=== PATIENT | female | born 1995 | race Caucasian/White ===

== ENCOUNTER 2017-07-06 22:18 | Emergency (ER) | payer MEDICAID, OTHER ==
[~2017-07-06] VITALS: Ht 154.9 cm; Wt 92.1 kg
[~2017-07-06 22:18] MED LIST: CEPH500C PO; CYCL10TA9 PO; NORE1PAT7 TD; PRD20T PO; TRAM50TA2 PO; TRAZ-28 PO
--- NOTE | 2017-07-06 23:05 | ED General ---
General Chief Complaint: Cough/Cold/Flu Symptoms Stated Complaint: SOB Nursing Triage Note: pt presaents to er with complaint of not being able to breath. states she woke up with difficulty breathing, headache, and nasal congestion. states she has also been coughing. Nursing Sepsis Screen: No Definite Risk Source of Information: Patient Exam Limitations: No Limitations Allergies and Home Medications Allergies Coded Allergies: No Known Drug Allergies (Unverified , 07/06/17) Past Ufaiuho-Ghlhip-Dwrmsl Hx Patient Social History Alcohol Use: Denies Use Recreational Drug Use: No Smoking Status: Current Everyday Smoker Type Used: Cigarettes Recent Foreign Travel: No Contact w/Someone Who Travel: No Recent Infectious Disease Expo: No Recent Hopitalizations: No Surgeries History of Surgeries: Yes Surgeries: Adenoidectomy, Tonsillectomy Respiratory History of Respiratory Disorde: No Cardiovascular History of Cardiac Disorders: No Neurological History of Neurological Disord: No Reproductive System : No Genitourinary History of Genitourinary Disor: Yes Genitourinary Disorders: UTI-Chronic Gastrointestinal History of Gastrointestinal Di: No Musculoskeletal History of Musculoskeletal Dis: No Endocrine History of Endocrine Disorders: No HEENT History of HEENT Disorders: No Cancer History of Cancer: No Psychosocial History of Psychiatric Problem: Yes Behavioral Health Disorders: Depression Integumentary History of Skin or Integumenta: No Blood Transfusions History of Blood Disorders: No Family Medical History Significant Family History: No Pertinent Family Hx Physical Exam Vital Signs Vital Sign - Last 12Hours 07/06/17 22:25 Temp 100.2 Pulse 119 Resp 20 B/P (MAP) 121/73 (89) Pulse Ox 96 O2 Delivery Room Air Capillary Refill : Less Than 3 Seconds Progress/Results/Core Measures Suspected Sepsis Recent Fever Within 48 Hours: No Infection Criteria Present: None New/Unexplained Altered Menta: No Sepsis Screen: No Definite Risk Sepsis Diagnosis: SIRS Temperature:100.2 Pulse: 119 Respiratory Rate: 20 Blood Pressure 121 /73 Mean: 89 Results/Orders Micro Results Microbiology 07/06/17 Influenza Types A,B Antigen ([facility]) - Final, Complete My Orders Orders - JUAN LUIS MENDOSA MD Chest Pa/Lat (2 View) (07/06/17 23:12) Rx-Oseltamivir Caps (Rx-Tamiflu Caps) (07/06/17 23:40) Vital Signs/I&O Vital Sign - Last 12Hours 1/11/18 22:25 Temp 100.2 Pulse 119 Resp 20 B/P (MAP) 121/73 (89) Pulse Ox 96 O2 Delivery Room Air Capillary Refill : Less Than 3 Seconds Blood Pressure Mean: 89 Departure Impression Impression: Primary Impression: Flu-like symptoms Disposition: HOME, SELF-CARE Condition: Stable Departure-Patient Inst. Decision time for Depature: 23:30 Referrals: [facility] (PCP/Family) Primary Care Physician Patient Instructions: Flu, Adult (DC) Add. Discharge Instructions: Complete Tamiflu as prescribed. You may take ibuprofen and/or Tylenol for pain and fever. Drink plenty of clear liquids. Return to care if symptoms worsen. All discharge instructions reviewed with patient and/or family. Voiced understanding. JUAN LUIS MENDOSA MD Jul 06, 2017 23:05
--- OUTSIDE RECORDS SUMMARY | 2017-07-06 23:21 | XMS REPORT ---
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 Active 65636642 Problem Anxiety F41.9 Active 64311952 Problem Dysuria R30.0 Active 89607205 Problem Screen for STD (sexually transmitted disease) Z11.3 Active 729998257 Problem Other chest pain R07.89 Active 74826363 Problem Encounter for initial prescription of other contraceptives Z30.018 Active 777194834 Problem control counseling Z30.9 Active 12606212 Problem History of unprotected sex Z72.51 Active 3784583 Problem Routine health maintenance Z00.00 Active 327843786 Problem Irregular menstruation, unspecified N92.6 Active 80390471 Problem Moderate episode of recurrent major depressive disorder F33.1 Active 626588711 Problem Encounter for gynecological examination Z01.419 Active 736680511 Problem Obesity (BMI 30-39.9) E66.9 Active 127409789 ALLERGIES No Information SOCIAL HISTORY Never Assessed PLAN OF CARE VITAL SIGNS MEDICATIONS Unknown Medications RESULTS Name Result Date Reference Range TEST, URINE (IN HOUSE) 2016-09-18 RESULTS negative Lot # [id number] Control + Exp date 2017-12-23 PROCEDURES Procedure Date Ordered Result Body Site URINE TEST September 18, 2016 DEPO PROVERA (150 MG/ML) September 18, 2016 THER/PROPH/DIAG INJ, SC/IM September 18, 2016 IMMUNIZATIONS Vaccine Route Administration Date Status DEPO PROVERA (150 MG/ML) IM Intramuscular September 18, 2016 Administered MEDICAL (GENERAL) HISTORY Type Description Date Medical History Irregular menstrual cycle Medical History Depressive disorder, not elsewhere classified Medical History Obesity, unspecified Medical History Frequent UTIs Surgical History tonsillectomy and adenoidectomy 2001 Hospitalization History Surgery(s) only [address] [facility] 2013
--- OUTSIDE RECORDS SUMMARY | 2017-07-06 23:21 | XMS REPORT ---
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 Active 11061386 Problem Screen for STD (sexually transmitted disease) Z11.3 Active 485105491 Problem Dysuria R30.0 Active 42105564 Problem Restless legs G25.81 Active 87742802 Problem Other chest pain R07.89 Active 95034046 Problem Anxiety F41.9 Active 37962184 Problem Encounter for initial prescription of other contraceptives Z30.018 Active 840391160 Problem Irregular menstruation, unspecified N92.6 Active 75193070 Problem Encounter for gynecological examination Z01.419 Active 844718288 Problem control counseling Z30.9 Active 84082243 Problem Obesity (BMI 30-39.9) E66.9 Active 577631767 Problem History of unprotected sex Z72.51 Active 0932601 Problem Routine health maintenance Z00.00 Active 295467240 ALLERGIES No Known Allergies SOCIAL HISTORY No smoking Hx information available PLAN OF CARE VITAL SIGNS MEDICATIONS No Known Medications RESULTS Name Result Date Reference Range TEST, URINE (IN HOUSE) 2016-06-28 RESULTS NEGATIVE Lot # [id number] Control + Exp date 2017-11-23 PROCEDURES Procedure Date Ordered Related Diagnosis Body Site URINE TEST Jun 28, 2016 DEPO PROVERA (150 MG/ML) Jun 28, 2016 THER/PROPH/DIAG INJ, SC/IM Jun 28, 2016 IMMUNIZATIONS Vaccine Route Administration Date Status DEPO PROVERA (150 MG/ML) IM Intramuscular Jun 28, 2016 Administered
--- OUTSIDE RECORDS SUMMARY | 2017-07-06 23:21 | XMS REPORT ---
Author Author RAGHU ALONSO [facility] eClinicalWorks Address Unknown Phone Unavailable Care Team Providers Care Adhesion Tester Name Role Phone RAGHU ALONSO CP Unavailable Allergies, Adverse Reactions, Alerts Substance Reaction Event Type N.K.D.A. Info Not Available Non Drug Allergy Problems Problem Type Condition Code Onset Dates Condition Status Problem control counseling Z30.9 Active Problem Irregular menstruation, unspecified N92.6 Active Problem Encounter for gynecological examination Z01.419 Active Problem Dysuria R30.0 Active Problem Restless legs G25.81 Active Problem High-risk sexual behavior Z72.51 Active Problem Obesity (BMI 30-39.9) E66.9 Active Problem Moderate episode of recurrent major depressive disorder F33.1 Active Problem Major depressive disorder, recurrent episode, moderate F33.1 Active Problem Routine health maintenance Z00.00 Active Assessment Restless legs G25.81 Active Assessment Obesity (BMI 30-39.9) E66.9 Active Assessment Moderate episode of recurrent major depressive disorder F33.1 Active Assessment Dysuria R30.0 Active Problem History of unprotected sex Z72.51 Active Assessment High-risk sexual behavior Z72.51 Active Problem Encounter for initial prescription of other contraceptives Z30.018 Active Medications Medication Code System Code Instructions Start Date End Date Status Dosage Ciprofloxacin HCl [facility] [address]-96 500 MG Orally Twice a day Feb 05, 2016 Feb 10, 2016 1 tablet Trazodone HCl [facility] [address]-27 50 mg Orally Once a day November 20, 2015 1 tablet at bedtime as needed Xulane [facility] [address]-00 150-35 mcg/24 hr Transdermal once weekly August apply 1 patch by transdermal route once weekly Gabapentin [facility] [address]-22 100 MG Orally Once a day at bedtime Feb 04, 2016 1 capsule Procedures Procedure Coding System Code Date URINE TEST CPT-4 04336 Feb 04, 2016 URINE CULTURE/COLONY COUNT CPT-4 99844 Feb 04, 2016 URINALYSIS, AUTO, W/O SCOPE CPT-4 63191 Feb 04, 2016 Office Visit, Est Pt., Level 3 CPT-4 28856 Feb 04, 2016 Vital Signs Date/Time: Feb 04, 2016 Cardiac Monitoring Heart Rate 78 bpm Weight 198.0 lbs Height 61 in Wt Percentile 97.26 % BMI 37.41 Index Blood Pressure Diastolic 76 mmHg Blood Pressure Systolic 116 mmHg BMIPercentile 98.04 % Results No Known Results Summary Purpose eClinicalWorks Submission
--- OUTSIDE RECORDS SUMMARY | 2017-07-06 23:21 | XMS REPORT ---
Author Author ALONSORAGHU Le Organization [facility] Address [address] [place] [address] Care Team Providers Care Quarry Supervisor Dimension Stone Name Role Phone ALONSORAGHU Le Unavailable PROBLEMS Type Condition ICD9-CM Code [id number] Code Onset Dates Condition Status SNOMED Code Problem Obesity (BMI 30-39.9) E66.9 Active 698298025 Problem Major depressive disorder, recurrent episode, moderate F33.1 Active 097671689 Problem Routine health maintenance Z00.00 Active 378265847 Problem Other chest pain R07.89 Active 81457954 Problem Anxiety F41.9 Active 27886140 Problem Dysuria R30.0 Active 63309751 Problem Restless legs G25.81 Active 11753359 Problem Screen for STD (sexually transmitted disease) Z11.3 Active 902591746 Problem High-risk sexual behavior Z72.51 Active 643978609 Assessment control counseling Z30.9 Feb, Active 278626874 Problem control counseling Z30.9 Active 41509760 Problem Encounter for gynecological examination Z01.419 Active 047221216 Problem History of unprotected sex Z72.51 Active 4868323 Problem Irregular menstruation, unspecified N92.6 Active 78968638 Problem Encounter for initial prescription of other contraceptives Z30.018 Active 636976377 Problem Moderate episode of recurrent major depressive disorder F33.1 Active 744245465 ALLERGIES Substance Reaction Event Type Date Status N.K.D.A. Unknown Non Drug Allergy Feb, Unknown SOCIAL HISTORY No smoking Hx information available PLAN OF CARE VITAL SIGNS Height 61 in 2016-03-01 Weight 192.3 lbs 2016-03-01 Heart Rate 74 bpm 2016-03-01 Respiratory Rate 18 2016-03-01 BMI 36.33 kg/m2 2016-03-01 Blood pressure systolic 131 mmHg 2016-03-01 Blood pressure diastolic 83 mmHg 2016-03-01 MEDICATIONS Medication Instructions Dosage Frequency Start Date End Date Duration Status BusPIRone HCl 10 mg Orally Twice a day 1 tablet 12h 06 Feb, 2016 Active Trazodone HCl 50 mg Orally Once a day 1 tablet at bedtime as needed 24h October, Active Xulane 150-35 mcg/24 hr Transdermal once weekly apply 1 patch by transdermal route once weekly Aug, Active Gabapentin 100 MG Orally Once a day at bedtime 1 capsule Jan, Active RESULTS Name Result Date Reference Range HSV 1/2 ANTIBODY IgG 2016-03-01 HSV 1 IgG, Type Spec 32.60 0.00-0.90 HSV 2 IgG, Type Spec <0.91 0.00-0.90 SYPHILIS (STATE) 2016-03-01 HIV (STATE) 2016-03-01 PROCEDURES Procedure Date Ordered Related Diagnosis Body Site EKG, TRACING (IN-HOUSE) 2016-03-01 N/A ELECTROCARDIOGRAM, TRACING Mar 01, 2016 VENIPUNCT, ROUTINE* Mar 01, 2016 No Charge Mar 01, 2016 Office Visit, Est Pt., Level 3 Mar 01, 2016 HERPES SIMPLEX TEST Mar 01, 2016 HERPES SIMPLEX TYPE 2 Mar 01, 2016 IMMUNIZATIONS No Known Immunizations
--- OUTSIDE RECORDS SUMMARY | 2017-07-06 23:21 | XMS REPORT ---
Author Author RAGHU ALONSO [facility] eClinicalWorks Address Unknown Phone Unavailable Care Team Providers Care Cable Mechanic Name Role Phone RAGHU ALONSO CP Unavailable Allergies, Adverse Reactions, Alerts Substance Reaction Event Type N.K.D.A. Info Not Available Non Drug Allergy Problems Problem Type Condition Code Onset Dates Condition Status Problem Moderate episode of recurrent major depressive disorder F33.1 Active Problem Routine health maintenance Z00.00 Active Problem Obesity (BMI 30-39.9) E66.9 Active Problem Anxiety F41.9 Active Problem Screen for STD (sexually transmitted disease) Z11.3 Active Problem Other chest pain R07.89 Active Problem Restless legs G25.81 Active Problem Major depressive disorder, recurrent episode, moderate F33.1 Active Problem High-risk sexual behavior Z72.51 Active Problem Dysuria R30.0 Active Assessment Major depressive disorder, recurrent episode, moderate F33.1 Active Assessment Encounter for Depo-Provera contraception Z30.42 Active Assessment control counseling Z30.9 Active Problem Encounter for initial prescription of other contraceptives Z30.018 Active Problem control counseling Z30.9 Active Assessment Anxiety F41.9 Active Problem Encounter for gynecological examination Z01.419 Active Problem History of unprotected sex Z72.51 Active Problem Irregular menstruation, unspecified N92.6 Active Medications Medication Code System Code Instructions Start Date End Date Status Dosage Gabapentin [facility] 02674667989 100 MG Orally Once a day at bedtime 1 capsule Xulane [facility] [address]-57 150-35 mcg/24 hr Transdermal once weekly August apply 1 patch by transdermal route once weekly Trazodone HCl [facility] [address]-75 50 mg Orally Once a day November 20, 2015 1 tablet at bedtime as needed BusPIRone HCl [facility] [address]-37 10 mg Orally Three times a day PRN Feb 1 tablet Procedures Procedure Coding System Code Date URINE TEST CPT-4 05113 Apr 05, 2016 DEPO PROVERA (150 MG/ML) CPT-4 J1050 Apr 05, 2016 Office Visit, Est Pt., Level 3 CPT-4 23977 Apr 05, 2016 THER/PROPH/DIAG INJ, SC/IM CPT-4 83469 Apr 05, 2016 Vital Signs Date/Time: Apr 05, 2016 Cardiac Monitoring Heart Rate 90 bpm Weight 190 lbs Height 61 in Wt Percentile 96.33 % BMI 35.90 Index Blood Pressure Diastolic 60 mmHg Blood Pressure Systolic 104 mmHg BMIPercentile 97.56 % Results No Known Results Summary Purpose eClinicalWorks Submission
--- OUTSIDE RECORDS SUMMARY | 2017-07-06 23:22 | XMS REPORT ---
Author Author RAGHU ALONSO Organization [employer] Address Unknown Phone Unavailable Care Team Providers Care Open Hearth Furnace Operator Name Role Phone RAGHU ALONSO CP Unavailable Allergies No Known Allergies Problems Problem Type Condition Code Onset Dates Condition Status Problem control counseling Z30.9 Active Problem Irregular menstruation, unspecified N92.6 Active Problem Encounter for gynecological examination Z01.419 Active Problem History of unprotected sex Z72.51 Active Problem Encounter for initial prescription of other contraceptives Z30.018 Active Problem Dysuria R30.0 Active Problem Restless legs G25.81 Active Problem High-risk sexual behavior Z72.51 Active Problem Obesity (BMI 30-39.9) E66.9 Active Problem Moderate episode of recurrent major depressive disorder F33.1 Active Problem Major depressive disorder, recurrent episode, moderate F33.1 Active Problem Routine health maintenance Z00.00 Active Medications No Known Medications Results No Known Results Summary Purpose eClinicalWorks Submission
--- OUTSIDE RECORDS SUMMARY | 2017-07-06 23:22 | XMS REPORT ---
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 Active 10485652 Problem Anxiety F41.9 Active 42273322 Problem Dysuria R30.0 Active 97287407 Problem Screen for STD (sexually transmitted disease) Z11.3 Active 294948597 Problem Other chest pain R07.89 Active 37327418 Problem Encounter for initial prescription of other contraceptives Z30.018 Active 401798532 Problem control counseling Z30.9 Active 63429489 Problem History of unprotected sex Z72.51 Active 4238931 Problem Routine health maintenance Z00.00 Active 153129149 Problem Irregular menstruation, unspecified N92.6 Active 53308206 Problem Moderate episode of recurrent major depressive disorder F33.1 Active 466307636 Problem Encounter for gynecological examination Z01.419 Active 349283626 Problem Obesity (BMI 30-39.9) E66.9 Active 968032809 ALLERGIES No Known Allergies SOCIAL HISTORY Never Assessed PLAN OF CARE Activity Details Future/Pending Procedure NAIL REMOVAL PERMANENT (PARTIAL OR COMPLETE) VITAL SIGNS Height 61 in 2016-11-15 Weight 204.9 lbs 2016-11-15 Temperature 98.2 degrees Fahrenheit 2016-11-15 Heart Rate 80 bpm 2016-11-15 Respiratory Rate 18 2016-11-15 BMI 38.71 kg/m2 2016-11-15 Blood pressure systolic 120 mmHg 2016-11-15 Blood pressure diastolic 80 mmHg 2016-11-15 MEDICATIONS Medication Instructions Dosage Frequency Start Date End Date Duration Status Depo-Provera 150 MG/ML 1 ml Active [place] 5-325 MG Orally every 6 hrs 1 tablet as needed 6h October, Active RESULTS No Results PROCEDURES Procedure Date Ordered Result Body Site REMOVAL OF NAIL BED November 15, 2016 IMMUNIZATIONS No Known Immunizations MEDICAL (GENERAL) HISTORY Type Description Date Medical History Irregular menstrual cycle Medical History Depressive disorder, not elsewhere classified Medical History Obesity, unspecified Medical History Frequent UTIs Surgical History tonsillectomy and adenoidectomy 2001 Hospitalization History Surgery(s) only 2001 Hospitalization History [facility] 2012
--- OUTSIDE RECORDS SUMMARY | 2017-07-06 23:22 | XMS REPORT ---
Author KATERYNA Jimenez eClinicalWorks Address Unknown Phone Unavailable Care Team Providers Care Director Religious Education Name Role Phone KATERYNA HOLLIS CP Unavailable Allergies No Known Allergies Problems Problem Type Condition Code Onset Dates Condition Status Problem Dietary surveillance and counseling V65.3 Active Problem Exercise counseling V65.41 Active Problem Counseling on other sexually transmitted diseases V65.45 Active Assessment Encounter for test Z32.00 Active Problem Obesity, unspecified 278.00 Active Problem Depressive disorder, not elsewhere classified 311 Active Problem Dysthymic disorder 300.4 Active Problem Major depressive disorder, recurrent episode, moderate 296.32 Active Problem Irregular menstrual cycle 626.4 Active Problem Other acne 706.1 Active Problem Unspecified episodic mood disorder 296.90 Active Problem Other general counseling and advice for contraceptive management V25.09 Active Medications No Known Medications Procedures Procedure Coding System Code Date VENIPUNCT, ROUTINE* CPT-4 89458 Jul 27, 2015 CHORIONIC GONADOTROPIN ASSAY CPT-4 84158 Jul 27, 2015 Results Name Result Date Reference Range Unit Abnormality Flag ROUTINE VENIPUNCTURE Summary Purpose eClinicalWorks Submission
--- OUTSIDE RECORDS SUMMARY | 2017-07-06 23:22 | XMS REPORT ---
Author Author RAGHU ALONSO Organization [employer] Address Unknown Phone Unavailable Care Team Providers Care Piledriver Carpenter Name Role Phone RAGHU ALONSO CP Unavailable [...]
--- OUTSIDE RECORDS SUMMARY | 2017-07-06 23:22 | XMS REPORT | Continuity of Care Document ---
Author Author [facility] Address Unknown Phone Unavailable Allergies Active Description Code Type Severity Reaction Onset Reported/Identified Relationship to Patient Clinical Status Yes No Known Drug Allergies [id number] Drug Allergy Unknown N/A 03/25/2014 Medications There is no data. 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 L V20.2 WELL CHILD 05/27/2011 078.12 PLANTAR WART 05/27/2011 477.9 ALLERGIC RHINITIS CAUSE UNSPECIFIED 05/27/2011 599.0 URINARY TRACT INFECTION 05/27/2011 V20.2 WELL CHILD 05/27/2011 078.12 PLANTAR WART 05/27/2011 477.9 ALLERGIC RHINITIS CAUSE UNSPECIFIED 05/27/2011 599.0 URINARY TRACT INFECTION 05/27/2011 V20.2 WELL CHILD 05/27/2011 078.12 PLANTAR WART 05/27/2011 477.9 ALLERGIC RHINITIS CAUSE UNSPECIFIED 05/27/2011 599.0 URINARY TRACT INFECTION 05/27/2011 V20.2 WELL CHILD 05/27/2011 078.12 PLANTAR WART 05/27/2011 477.9 ALLERGIC RHINITIS CAUSE UNSPECIFIED 05/27/2011 599.0 URINARY TRACT INFECTION 05/27/2011 V20.2 WELL CHILD 05/27/2011 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, 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 078.12 PLANTAR WART 05/27/2011 PATTI OCHOA APRN 477.9 ALLERGIC RHINITIS CAUSE UNSPECIFIED 05/27/2011 PATTI OCHOA APRN 599.0 URINARY TRACT INFECTION 05/27/2011 PATTI OCHOA APRN V20.2 WELL CHILD 09/20/2011 626.4 IRREGULAR MENSTRUAL CYCLE 09/20/2011 706.1 ACNE 09/20/2011 788.1 DYSURIA 09/20/2011 V25.09 CONTRACEPTIVE COUNSELING - GENERAL 09/20/2011 PATTI OCHOA APRN 626.4 irregular length of menstrual periods 09/20/2011 PATTI OCHOA APRN 706.1 ACNE 09/20/2011 PATTI OCHOA APRN 788.1 DYSURIA 09/20/2011 PATTI OCHOA APRN V25.09 CONTRACEPTIVE COUNSELING - GENERAL 09/20/2011 626.4 irregular length of menstrual periods 09/20/2011 706.1 ACNE 09/20/2011 788.1 DYSURIA 09/20/2011 V25.09 CONTRACEPTIVE COUNSELING - GENERAL 09/20/2011 626.4 irregular length of menstrual periods 09/20/2011 706.1 ACNE 09/20/2011 788.1 DYSURIA 09/20/2011 V25.09 CONTRACEPTIVE COUNSELING - GENERAL 09/20/2011 626.4 irregular length of menstrual periods 09/20/2011 706.1 ACNE 09/20/2011 788.1 DYSURIA 09/20/2011 V25.09 CONTRACEPTIVE COUNSELING - GENERAL 09/20/2011 626.4 irregular length of menstrual periods 09/20/2011 706.1 ACNE 09/20/2011 788.1 DYSURIA 09/20/2011 V25.09 CONTRACEPTIVE COUNSELING - GENERAL 09/20/2011 PATTI OCHOA APRN 626.4 irregular length of menstrual periods 09/20/2011 PATTI OCHOA APRN 706.1 ACNE 09/20/2011 PATTI OCHOA APRN 788.1 DYSURIA 09/20/2011 PATTI OCHOA APRN V25.09 CONTRACEPTIVE COUNSELING - GENERAL 09/27/2011 296.32 MO DEPRESSIVE RECURRENT MODERATE 09/27/2011 PATTI OCHOA APRN 296.32 MO DEPRESSIVE RECURRENT MODERATE 09/27/2011 296.32 MO DEPRESSIVE RECURRENT MODERATE 09/27/2011 296.32 MO DEPRESSIVE RECURRENT MODERATE 09/27/2011 296.32 MO DEPRESSIVE RECURRENT MODERATE 09/27/2011 296.32 MO DEPRESSIVE RECURRENT MODERATE 09/27/2011 PATTI OCHOA APRN 296.32 MO DEPRESSIVE RECURRENT MODERATE 11/02/2011 300.4 MO DYSTHYMIC DISORDER 11/02/2011 PATTI OCHOA APRN 300.4 MO DYSTHYMIC DISORDER 11/02/2011 300.4 MO DYSTHYMIC DISORDER 11/02/2011 300.4 MO DYSTHYMIC DISORDER 11/02/2011 300.4 MO DYSTHYMIC DISORDER 11/02/2011 300.4 MO DYSTHYMIC DISORDER 11/02/2011 PATTI OCHOA APRN 300.4 MO DYSTHYMIC DISORDER 12/16/2011 296.90 MOOD DISORDER NOS 12/16/2011 PATTI OCHOA APRN 296.90 MOOD DISORDER NOS 12/16/2011 296.90 MOOD DISORDER NOS 12/16/2011 296.90 MOOD DISORDER NOS 12/16/2011 296.90 MOOD DISORDER NOS 12/16/2011 296.90 MOOD DISORDER NOS 12/16/2011 PATTI OCHOA APRN 296.90 MOOD DISORDER NOS 08/03/2012 311 DEPRESSIVE DISORDER NOS 08/03/2012 PATTI OCHOA APRN 311 DEPRESSIVE DISORDER NOS 08/03/2012 311 DEPRESSIVE DISORDER NOS 08/03/2012 311 DEPRESSIVE DISORDER NOS 08/03/2012 311 DEPRESSIVE DISORDER NOS 08/03/2012 311 DEPRESSIVE DISORDER NOS 08/03/2012 PATTI OCHOA APRN 311 DEPRESSIVE DISORDER NOS 09/19/2012 PATTI OCHOA APRN 278.00 OBESITY 09/19/2012 PATTI OCHOA APRN V65.3 DIETARY SURVEILLANCE AND COUNSELING 09/19/2012 PATTI OCHOA APRN V65.41 EXERCISE COUNSELING 09/19/2012 PATTI OCHOA APRN V65.45 Anticipatory Guidance: Unsafe Sexual Practices 09/19/2012 278.00 OBESITY 09/19/2012 V65.3 DIETARY SURVEILLANCE AND COUNSELING 09/19/2012 V65.41 EXERCISE COUNSELING 09/19/2012 V65.45 Anticipatory Guidance: Unsafe Sexual Practices 09/19/2012 278.00 OBESITY 09/19/2012 V65.3 DIETARY SURVEILLANCE AND COUNSELING 09/19/2012 V65.41 EXERCISE COUNSELING 09/19/2012 V65.45 Anticipatory Guidance: Unsafe Sexual Practices 09/19/2012 278.00 OBESITY 09/19/2012 V65.3 DIETARY SURVEILLANCE AND COUNSELING 09/19/2012 V65.41 EXERCISE COUNSELING 09/19/2012 V65.45 Anticipatory Guidance: Unsafe Sexual Practices 09/19/2012 278.00 OBESITY 09/19/2012 V65.3 DIETARY SURVEILLANCE AND COUNSELING 09/19/2012 V65.41 EXERCISE COUNSELING 09/19/2012 V65.45 Anticipatory Guidance: Unsafe Sexual Practices 09/19/2012 PATTI OCHOA APRN 278.00 OBESITY 09/19/2012 PATTI OCHOA APRN V65.3 DIETARY SURVEILLANCE AND COUNSELING 09/19/2012 PATTI OCHOA APRN V65.41 EXERCISE COUNSELING 09/19/2012 PATTI OCHOA APRN V65.45 Anticipatory Guidance: Unsafe Sexual Practices 03/25/2014 NAVYA MEZA, JUAN LUIS Hoskins Ot 599.0 URIN TRACT INFECTION NOS 03/25/2014 NAVYA MEZA, JUAN LUIS T Ot 788.1 DYSURIA 08/25/2015 NALINI MEZA, KIMBERLY Winn Ot M54.16 RADICULOPATHY, LUMBAR REGION 12/21/2015 JAVI SOMMERS Ot S76.312A STRAIN OF MSL/FASC/TND POST GRP AT [facility] 12/21/2015 JAVI SOMMERS Ot X58.XXXA EXPOSURE TO OTHER SPECIFIED FACTORS, INI 12/21/2015 JAVI SOMMERS Ot Y99.8 OTHER EXTERNAL CAUSE STATUS 12/22/2015 JAVI SOMMERS Ot S76.312A STRAIN OF MSL/FASC/TND POST GRP AT [facility] 12/22/2015 JAVI SOMMERS Ot X58.XXXA EXPOSURE TO OTHER SPECIFIED FACTORS, INI 12/22/2015 JAVI SOMMERS Ot Y99.8 OTHER EXTERNAL CAUSE STATUS Procedures Code [place] [address] PSYTX PT&/FAMILY 30 MINUTES 08/13/2012 21284 ROUTINE VENIPUNCTURE 09/19/2012 33311 URINE TEST (IN- HOUSE) 09/19/2012 75125 CBC 09/19/2012 29040 LIPID PANEL 09/19/2012 11100 CMP 09/19/2012 69033 A1C (RML) 09/19/2012 65471 T4 FREE 09/19/2012 13684 TSH 09/19/2012 14725 INSULIN LEVEL 09/19/2012 26337 PSYCH DIAGNOSTIC EVALUATION 09/21/2012 38572 PSYTX PT&/FAMILY 30 MINUTES 10/25/2012 88108 PSYTX PT&/FAMILY 45 MINUTES 11/07/2012 02744 PSYTX PT&/FAMILY 45 MINUTES 11/14/2012 02275 UA LONG DIP 11/21/2012 00018 PSYTX PT&/FAMILY 45 MINUTES 11/21/2012 84293 CULTURE URINE 11/21/2012 Results There is no data. Encounters ACCT No. Visit Date/Time Discharge Status Pt. Type Provider Facility Loc./Unit Complaint [id number] 11/21/2012 13:33:00 11/21/2012 23:59:59 CLS Outpatient PATTI OCHOA APRN [id number] 09/19/2012 09:28:00 09/19/2012 23:59:59 CLS Outpatient PATTI OCHOA APRN [id number] 08/03/2012 10:03:00 08/03/2012 23:59:59 CLS Outpatient [id number] 11/21/2012 13:33:00 Document Registration [id number] 11/14/2012 14:59:00 Document Registration [id number] 10/24/2012 15:55:00 Document Registration [id number] 10/10/2012 15:59:00 Document Registration [id number] 12/21/2015 15:40:00 12/21/2015 18:28:00 DIS Emergency JAVI SOMMERS [facility] ER L LEG PAIN [id number] 08/25/2015 12:54:00 08/25/2015 14:36:00 DIS Emergency KIMBERLY GAYLE MD [facility] ER BACK PAIN [id number] 03/25/2014 04:48:00 03/25/2014 06:02:00 DIS Emergency NAVYA MEZA, JUAN LUIS Hoskins [facility] ER
[2017-07-06] MEDS ORDERED: RX-OSELTAMIVIR 75 MG (TAMIFLU) BOX OF 10 PO STA (23:40)
[2017-07-06 23:48] VITALS: BP 120/67
--- NOTE | 2017-07-07 07:28 | Diagnostic Imaging Report ---
INDICATION: Shortness of breath and cough. PA and lateral views were obtained. FINDINGS: The heart size, mediastinal configuration, and pulmonary vascularity are within normal limits. There is no pleural effusion, pneumothorax, or pneumonia. The osseous structures are unremarkable. IMPRESSION: No acute cardiopulmonary abnormality. Dictated by: Dictated on workstation # [id number]
== END 2017-07-06 23:48 | disposition home or self-care (01) ==
LOC: EDUNIT# 22:18 → ER 22:19
DX: J11.1 Influenza due to unidentified influenza virus with other respiratory manifestations (principal); F32.9 Major depressive disorder, single episode, unspecified; F17.210 Nicotine dependence, cigarettes, uncomplicated; Z90.89 Acquired absence of other organs; Z87.440 Personal history of urinary (tract) infections
CPT/HCPCS: 71046; 87804; 99283

== ENCOUNTER 2018-04-09 17:39 | Emergency (ER) | payer SELFPAY ==
[~2018-04-09] VITALS: Ht 154.9 cm; Wt 90.7 kg
[~2018-04-09 17:39] MED LIST changes: +TRAZ-189 PO; -TRAZ-28 PO
--- OUTSIDE RECORDS SUMMARY | 2018-04-09 17:45 | XMS REPORT ---
Author Author Nicola NIYAH [facility] WALK IN [facility] Address [address] [place] [address] Care Team Providers Care Supervisor Advertising Dispatch Clerks Name Role Phone jenelleCORNELIALETY NIYAH Unavailable PROBLEMS Type Condition ICD9-CM Code GYQ33-XT Code Onset Dates Condition Status SNOMED Code Problem Major depressive disorder, recurrent episode, moderate F33.1 Active 156163022 Problem High-risk sexual behavior Z72.51 Active 882954304 Problem Restless legs G25.81 Active 11407698 Problem Abnormal uterine bleeding (AUB) N93.9 Active 12048525316178 Problem 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 Active 95864802 Problem Anxiety F41.9 Active 97725737 Problem Dysuria R30.0 Active 51337692 Problem Screen for STD (sexually transmitted disease) Z11.3 Active 671120562 Problem Other chest pain R07.89 Active 66903594 Problem Encounter for initial prescription of other contraceptives Z30.018 Active 941147114 Problem control counseling Z30.9 Active 87002132 Problem History of unprotected sex Z72.51 Active 2807989 Problem Routine health maintenance Z00.00 Active 093330788 Problem Irregular menstruation, unspecified N92.6 Active 68720617 Problem Moderate episode of recurrent major depressive disorder F33.1 Active 810392152 Problem Encounter for gynecological examination Z01.419 Active 295624566 Problem Obesity (BMI 30-39.9) E66.9 Active 505713132 ALLERGIES No Information ENCOUNTERS Encounter Location Date Diagnosis [facility] [address] [id number], [place] [address] 17 Mar, 2017 control counseling Z30.9 ; Encounter for initial prescription of transdermal patch hormonal contraceptive device Z30.016 and Routine screening for STI (sexually transmitted infection) Z11.3 [facility] [address] [id number], [place] [address] 16 Feb, 2017 [facility] [place] [id number] [place] [address] 12 Feb, 2017 Abnormal uterine bleeding (AUB) N93.9 and Candidiasis of female genitalia B37.3 [place] [id number] [place] [address] 12 Feb, 2017 [facility] WALK IN [address] [address] 14 Dec, 2016 Dysuria R30.0 and Acute cystitis with hematuria N30.[address] [address] Dec, Anxiety F41.9 ; Major depressive disorder, recurrent episode , moderate F33.1 and 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 [address] Dec, Anxiety F41.9 ; Major depressive disorder, recurrent episode , moderate F33.1 and 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 [place] [id number] [place] [address] Dec, Anxiety F41.9 ; Major depressive disorder, recurrent episode , moderate F33.1 and 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 [place] [id number] [place] [address] Nov, Anxiety F41.9 ; Major depressive disorder, recurrent episode , moderate F33.1 and 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 [facility]ALK IN [place] [id number] [place] [address] Nov, Irritant contact dermatitis due to other agents L24.89 and Chigger bites B88.0 [place] [id number] [place] [address] October, Nail, ingrown L60.0 [facility] WALK IN [address] [address] Sep, Nail, ingrown L60.0 and Infected nail bed of toe L03.039 [facility] [id number] [place] [address] Aug, Encounter for Depo-Provera contraception Z30.42 [facility] WALK IN [facility] [id number] [place] [address] Jun, Encounter for Depo-Provera contraception Z30.42 [place] [address] [address] Mar, Anxiety F41.9 ; Encounter for Depo-Provera contraception Z30.42 ; Major depressive disorder, recurrent episode, moderate F33.1 and control counseling Z30.9 [place] [id number] [place] [address] Feb, control counseling Z30.9 ; Irregular menstruation, unspecified N92.6 ; Other chest pain R07.89 ; Anxiety F41.9 and Screen for STD ( sexually transmitted disease) Z11.3 [place] [id number] [place] [address] Jan, [place] [id number] [place] [address] Jan, [place] [id number] [place] [address] Jan, Moderate episode of recurrent major depressive disorder F33.1 ; Obesity (BMI 30-39.9) E66.9 ; High-risk sexual behavior Z72.51 ; Dysuria R30.0 and Restless legs G25.81 [place] [id number] [place] [address] Nov, Major depressive disorder, recurrent episode, moderate F33.1 [place] [id number] [place] [address] Nov, Moderate episode of recurrent major depressive disorder F33.1 and Obesity (BMI 30-39.9) E66.9 [place] [address] [address] Nov, [place] [id number] [place] [address] Nov, Obesity (BMI 30-39.9) E66.9 [place] [id number] [place] [address] October, Major depressive disorder, recurrent episode, moderate F33.1 [place] [id number] [place] [address] October, Routine health maintenance Z00.00 ; Insulin resistance E88.81 ; Obesity (BMI 30-39.9) E66.9 and Moderate episode of recurrent major depressive disorder F33.1 [place] [id number] [place] [address] October, Encounter for gynecological examination Z01.419 ; Irregular menstruation, unspecified N92.6 ; History of unprotected sex Z72.51 ; control counseling Z30.9 and Encounter for initial prescription of other contraceptives Z30.018 [place] [id number] [place] [address] Jul, Encounter for test Z32.00 [place] [id number] [place] [address] October, Angioma serpiginosum of skin 448.[address] [id number] [id number] October, Major depression, recurrent 296.30 and No condition on Waldron II V71.09 [place] [id number] [place] [address] October, Angioma serpiginosum of skin 448.1 [place] [id number] [place] [address] Sep, [address] [id number] [place] [address] Sep, [facility] [address] [id number] [place] [address] Aug, [facility] [address] [id number] [place] [address] Aug, [facility] [address] [id number] [place] [address] Jul, [facility] [address] [id number] [place] [address] Jul, [facility] [address] [facility] [id number] [place] [address] Mar, [facility] [address] [facility] [id number] [place] [address] Mar, [facility] [address] [facility] [id number] [place] [address] Dec, [facility] [address] [facility] [id number] [id number] Nov, [facility] [address] [facility] [id number] [id number] Nov, [facility] [address] [facility] [id number] [place] [address] October, [facility] [address] [facility] [id number] [place] [address] October, [facility] [address] [facility] [id number] [address] October, [facility] [address] [facility] [id number] [place] [address] October, [facility] [address] [facility] [id number] [place] [address] October, [facility] [address] [facility] [id number] [place] [address] Sep, [facility] [place] [facility] [address] [id number] [place] [address] Sep, [facility] [address] [id number] [place] [address] Sep, [facility] [address] [id number] [place] [id number] Aug, [facility] [address] [id number] [place] [address] Aug, [facility] [address] [id number] [place] [address] Jul, [facility] [place] [facility] [address] [id number] [place] [address] Mar, [facility] [address] [id number] [place] [address] Dec, [facility] [place] [facility] [address] [id number] [place] [address] Nov, [facility] [address] [id number] [place] [address] Nov, [facility] [place] [facility] [address] [id number] [place] [address] Nov, [facility] [address] [id number] [place] [address] Nov, [facility] [place] [facility] [address] [id number] [place] [address]- [address] Nov, [facility] [place] [facility] [address] [id number] [place] [address] Nov, [facility] [place] [facility] [address] [id number] [place] [address] Nov, [facility] [place] [facility] [address] [id number] [place] [address] October, [facility] [place] [facility] [address] [id number] [place] [address] October, [facility] [id number] October, [facility] [address] [address] October, [facility] [address] [address] October, [facility] [address] [facility] [id number], [place] [address] October, [facility] [address] [facility] [id number], [place] [address] October, [facility] [address] [address] Sep, [facility] [address] [address] Aug, [facility] [address] [address] Aug, [facility] [address] [address] Aug, [facility] [address] [address] Aug, [facility] [id number] [address] May, [facility] [address], [place] [address] May, [facility] [id number] [address] May, IMMUNIZATIONS No Known Immunizations SOCIAL HISTORY Never Assessed REASON FOR VISIT PLAN OF CARE VITAL SIGNS MEDICATIONS No Known Medications RESULTS No Results PROCEDURES No Known procedures INSTRUCTIONS MEDICATIONS ADMINISTERED No Known Medications MEDICAL (GENERAL) HISTORY Type Description Date Medical History Irregular menstrual cycle Medical History Depressive disorder, not elsewhere classified Medical History Obesity, unspecified Medical History Frequent UTIs Surgical History tonsillectomy and adenoidectomy 2001 Hospitalization History Surgery(s) only 2002 [facility] [place]
--- OUTSIDE RECORDS SUMMARY | 2018-04-09 17:45 | XMS REPORT ---
Author Author MARTA PEDROZA Organization [facility] Address [address] [place] [address] Care Team Providers Care Clinical Case Manager Name Role Phone MARTA PEDROZA Unavailable PROBLEMS Type Condition ICD9-CM Code SQW13-YK Code Onset Dates Condition Status SNOMED Code Problem Major depressive disorder, recurrent episode, moderate F33.1 Active 767031040 Problem High-risk sexual behavior Z72.51 Active 351307688 Problem Restless legs G25.81 Active 95178499 Problem Abnormal uterine bleeding (AUB) N93.9 Active [id number] Problem 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 Active 83307471 Problem Anxiety F41.9 Active 70128900 Problem Dysuria R30.0 Active 79856757 Problem Screen for STD (sexually transmitted disease) Z11.3 Active 188199571 Problem Other chest pain R07.89 Active 28318881 Problem Encounter for initial prescription of other contraceptives Z30.018 Active 066510585 Problem control counseling Z30.9 Active 77204369 Problem History of unprotected sex Z72.51 Active 6910274 Problem Routine health maintenance Z00.00 Active 204671622 Problem Irregular menstruation, unspecified N92.6 Active 91775113 Problem Moderate episode of recurrent major depressive disorder F33.1 Active 645959710 Problem Encounter for gynecological examination Z01.419 Active 253781031 Problem Obesity (BMI 30-39.9) E66.9 Active 952720567 ALLERGIES No Information ENCOUNTERS Encounter Location Date Diagnosis [facility] [address] [facility] [id number] [address] 17 Mar, 2017 control counseling Z30.9 ; Encounter for initial prescription of transdermal patch hormonal contraceptive device Z30.016 and Routine screening for STI (sexually transmitted infection) Z11.3 [facility] [address] [facility] [id number] [address] 16 Feb, 2017 [facility] IN [place] [address] [address] [place] [address] 12 Feb, 2017 Abnormal uterine bleeding (AUB) N93.9 and Candidiasis of female genitalia B37.3 [place] [address] [address] [place] [id number] [place] [address] 50144- 5321 12 Feb, 2017 [facility] WALK IN [place] [id number] [place] [address] 45947 -3938 14 Dec, 2016 Dysuria R30.0 and Acute cystitis with hematuria N30.01 [place] [id number] [place] [address] 95746- 3536 Dec, Anxiety F41.9 ; Major depressive disorder, recurrent episode , moderate F33.1 and 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 [place] [id number] [place] [address] 67300- 8364 Dec, Anxiety F41.9 ; Major depressive disorder, recurrent episode , moderate F33.1 and 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 [place] [id number] [place] [address] 70364- 9058 Dec, Anxiety F41.9 ; Major depressive disorder, recurrent episode , moderate F33.1 and 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 [place] [address] [address] [place] [id number] [place] [address] 73564- 9703 Nov, Anxiety F41.9 ; Major depressive disorder, recurrent episode , moderate F33.1 and 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 [facility] WALK IN [place] [id number] [place] [address] 74706 -5268 Nov, Irritant contact dermatitis due to other agents L24.89 and Chigger bites B88.0 [place] [id number] [place] [address] 99198- 3165 October, Nail, ingrown L60.0 [facility] WALK IN [place] [id number] [place] [address] 62062 -5202 Sep, Nail, ingrown L60.0 and Infected nail bed of toe L03.039 [facility] [address] [place] [id number] [place] [address] 31236 -7063 Aug, Encounter for Depo-Provera contraception Z30.42 [facility] WALK IN [facility] [address] [address] Jun, Encounter for Depo-Provera contraception Z30.42 [place] [address] [address] 38[address] Mar, Anxiety F41.9 ; Encounter for Depo-Provera contraception Z30.42 ; Major depressive disorder, recurrent episode, moderate F33.1 and control counseling Z30.9 [place] [address] [address]90- 4519 Feb, control counseling Z30.9 ; Irregular menstruation, unspecified N92.6 ; Other chest pain R07.89 ; Anxiety F41.9 and Screen for STD ( sexually transmitted disease) Z11.3 [place] [address] [place] [id number] [place] [address] 48964- 7192 Jan, [place] [address] [address]173- 3791 Jan, [place] [address] [place] [id number] [place] [address] 90058- 7682 Jan, Moderate episode of recurrent major depressive disorder F33.1 ; Obesity (BMI 30-39.9) E66.9 ; High-risk sexual behavior Z72.51 ; Dysuria R30.0 and Restless legs G25.81 [place] [address] 36514- 2496 Nov, Major depressive disorder, recurrent episode, moderate F33.1 [place] [address] [place] [id number] [place] [address] 24624- 5357 Nov, Moderate episode of recurrent major depressive disorder F33.1 and Obesity (BMI 30-39.9) E66.9 [place] [address]65100[place] [address] Nov, [place] [address] [place] [id number] [place] [address] 19585- 6123 Nov, Obesity (BMI 30-39.9) E66.9 [place] [address] [place] [id number] [place] [address] 10922- 0727 October, Major depressive disorder, recurrent episode, moderate F33.1 [place] [address] [place] [id number] [place] [address] 69016- 1818 October, Routine health maintenance Z00.00 ; Insulin resistance E88.81 ; Obesity (BMI 30-39.9) E66.9 and Moderate episode of recurrent major depressive disorder F33.1 [address] [place] [address] 42155- 3940 October, Encounter for gynecological examination Z01.419 ; Irregular menstruation, unspecified N92.6 ; History of unprotected sex Z72.51 ; control counseling Z30.9 and Encounter for initial prescription of other contraceptives Z30.018 [address] [place] [address] 71532- 1348 Jul, Encounter for test Z32.00 [address]100[place] [address] 4971 October, Angioma serpiginosum of skin 448.[address] [id number] [id number] October, Major depression, recurrent 296.30 and No condition on [place] II V71.09 [place] [id number] [place] [address] 75596- 4904 October, Angioma serpiginosum of skin 448.1 [place] [address] [address] 7[address] Sep, [place] [id number] [place] [address] 0984 Sep, [facility] [address] [id number] [place] [address]- 8426 Aug, [facility] [place] [facility] [address] [id number] [place] [address] 2546 Aug, [facility] [place] [facility] [address] [id number] [place] [address]- 4717 Jul, [facility] [place] [facility] [address] [id number] [place] [address]- 8224 Jul, [facility] [address] [id number] [place] [address] 1897 Mar, [facility] [address] [facility] [id number] [place] [address]- 5891 Mar, [facility] [address] [place] [id number] [place] [address] 1493 Dec, [facility] [address] [facility] [id number] [id number] Nov, [facility] [address] [facility] [id number][place] [id number] Nov, [facility] [address] [facility] [id number] [place] [address]- 0406 October, [facility] [address] [id number] [place] [address]- 8556 October, [facility] [place] [facility] [address] [id number] [place] [address]- 3061 October, [facility] [place] [facility] [address] [id number] [place] [address]- 9286 October, [facility] [place] [facility] [address] [facility] [id number] [place] [address]- 6436 October, [facility] [place] [facility] [address] [id number] [place] [address]- 3626 Sep, [facility] [place] [facility] [address] [id number] [place] [address]- 4929 24 Sep, 2012 [facility] [address] [id number] [place] [address]- 2859 Sep, [facility] [address] [id number] [place] [id number] Aug, [facility] [address] [id number] [place] [address]- 2510 Aug, [facility] [address] [id number] [place] [address]- 8294 Jul, [facility] [address] [id number] [place] [address]- 2147 Mar, [facility] [address] [id number] [place] [address]- 1822 Dec, [facility] [address] [id number] [place] [address]- 7007 Nov, [facility] [address] [id number] [place] [address]- 1952 Nov, [facility] [address] [id number] [place] [address]- 3076 Nov, [facility] [address] [id number] [place] [address]- 1185 Nov, [facility] [address] [id number] [place] [address]- 3481 Nov, [facility] [address] [id number] [place] [address]- 1926 Nov, [facility] [place] [facility] [address] [id number] [place] [address]- 9754 Nov, [facility] [place] [facility] [address] [id number] [place] [address]- 0818 October, [facility] [address] [id number] [place] [address]- 5410 October, [facility] [address] [address] 9756 October, [facility] [address] [address] 0406 October, [facility] [address] [address]- 6816 October, [facility] [address] [address]- 2546 October, [facility] [address] [address]- 5556 October, [facility] [address] [address]- 3046 Sep, [facility] [address] [address]- 1147 Aug, [facility] [address] [address]- 5603 Aug, [facility] [address] [address]- 5646 Aug, [facility] [address] [address]- 8346 Aug, [facility] [address] [place] [id number] [address]- 6346 May, [facility] [address] [address]- 4496 May, [facility] [address] [place] [id number] [address]- 6536 May, IMMUNIZATIONS No Known Immunizations SOCIAL HISTORY Never Assessed REASON FOR VISIT f/u PLAN OF CARE Activity Details Follow Up 2 Weeks Reason:anxiety, kleptomania VITAL SIGNS MEDICATIONS No Known Medications RESULTS No Results PROCEDURES Procedure Date Ordered Result Body Site Psychotherapy, patient &/family, 30 minutes, established patient January 06, 2017 INSTRUCTIONS MEDICATIONS ADMINISTERED No Known Medications MEDICAL (GENERAL) HISTORY Type Description Date Medical History Irregular menstrual cycle Medical History Depressive disorder, not elsewhere classified Medical History Obesity, unspecified Medical History Frequent UTIs Surgical History tonsillectomy and adenoidectomy 2001 Hospitalization History Surgery(s) only 2001 [facility] History [facility]
--- OUTSIDE RECORDS SUMMARY | 2018-04-09 17:45 | XMS REPORT ---
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 Active 17664201 Problem Anxiety F41.9 Active 46215526 Problem Dysuria R30.0 Active 00305761 Problem Screen for STD (sexually transmitted disease) Z11.3 Active 463900654 Problem Other chest pain R07.89 Active 60856413 Problem Encounter for initial prescription of other contraceptives Z30.018 Active 324877707 Problem control counseling Z30.9 Active 80902068 Problem History of unprotected sex Z72.51 Active 4143011 Problem Routine health maintenance Z00.00 Active 778064872 Problem Irregular menstruation, unspecified N92.6 Active 82301632 Problem Moderate episode of recurrent major depressive disorder F33.1 Active 636081046 Problem Encounter for gynecological examination Z01.419 Active 451569585 Problem Obesity (BMI 30-39.9) E66.9 Active 697899482 ALLERGIES No Information ENCOUNTERS Encounter Location Date Diagnosis [facility] [address] [facility] [id number] [address] 17 Mar, 2017 control counseling Z30.9 ; Encounter for initial prescription of transdermal patch hormonal contraceptive device Z30.016 and Routine screening for STI (sexually transmitted infection) Z11.3 [facility] [address] [facility] [id number] [address] 16 Feb, 2017 [facility] [place] [address] [address] [place] [address] 38899 -4576 12 Feb, 2017 Abnormal uterine bleeding (AUB) N93.9 and Candidiasis of female genitalia B37.3 [place] [address] [address] [place] [id number] [place] [address] 76658- 6290 12 Feb, 2017 [facility] WALK IN [place] [id number] [place] [address] 39145 -0410 14 Dec, 2016 Dysuria R30.0 and Acute cystitis with hematuria N30.01 [place] [id number] [place] [address] 55672- 7898 Dec, Anxiety F41.9 ; Major depressive disorder, recurrent episode , moderate F33.1 and 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 [place] [id number] [place] [address] 94459- 2266 Dec, Anxiety F41.9 ; Major depressive disorder, recurrent episode , moderate F33.1 and 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 [place] [id number] [place] [address] 17267- 9534 Dec, Anxiety F41.9 ; Major depressive disorder, recurrent episode , moderate F33.1 and 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 [place] [address] [place] [id number] [place] [address] 89583- 0271 Nov, Anxiety F41.9 ; Major depressive disorder, recurrent episode , moderate F33.1 and 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 [facility] WALK IN [place] [id number] [place] [address] 33418 -2987 Nov, Irritant contact dermatitis due to other agents L24.89 and Chigger bites B88.0 [place] [id number] [place] [address] 34298- 2652 October, Nail, ingrown L60.0 [facility] WALK IN [place] [id number] [place] [address] 72518 -8822 Sep, Nail, ingrown L60.0 and Infected nail bed of toe L03.039 [facility] [address] [place] [id number] [place] [address] 73595 -9272 Aug, Encounter for Depo-Provera contraception Z30.42 [facility] WALK IN [facility] [address] 13600 -[address]239 Jun, Encounter for Depo-Provera contraception Z30.42 [place] [address] [address]21- 1618 Mar, Anxiety F41.9 ; Encounter for Depo-Provera contraception Z30.42 ; Major depressive disorder, recurrent episode, moderate F33.1 and control counseling Z30.9 [place] [address] [address]116- 9241 Feb, control counseling Z30.9 ; Irregular menstruation, unspecified N92.6 ; Other chest pain R07.89 ; Anxiety F41.9 and Screen for STD ( sexually transmitted disease) Z11.3 [place] [address] [place] [id number] [place] [address] 49282- 2048 Jan, [place] [address] 72[address]- 1011 Jan, [place] [address] [place] [id number] [place] [address] 28064- 5283 Jan, Moderate episode of recurrent major depressive disorder F33.1 ; Obesity (BMI 30-39.9) E66.9 ; High-risk sexual behavior Z72.51 ; Dysuria R30.0 and Restless legs G25.81 [place] [address] [address]60- 2488 Nov, Major depressive disorder, recurrent episode, moderate F33.1 [place] [address] [place] [id number] [place] [address] 20387- 5824 Nov, Moderate episode of recurrent major depressive disorder F33.1 and Obesity (BMI 30-39.9) E66.9 [place] [address] [address]- 6396 Nov, [place] [address] [place] [id number] [place] [address] 57377- 5025 Nov, Obesity (BMI 30-39.9) E66.9 [place] [address] [place] [id number] [place] [address] 92964- 9932 October, Major depressive disorder, recurrent episode, moderate F33.1 [place] [address] [place] [id number] [place] [address] 31433- 0839 October, Routine health maintenance Z00.00 ; Insulin resistance E88.81 ; Obesity (BMI 30-39.9) E66.9 and Moderate episode of recurrent major depressive disorder F33.1 [address] [place] [address] 93460- 2459 October, Encounter for gynecological examination Z01.419 ; Irregular menstruation, unspecified N92.6 ; History of unprotected sex Z72.51 ; control counseling Z30.9 and Encounter for initial prescription of other contraceptives Z30.018 [address] [place] [address] 58886- 8751 Jul, Encounter for test Z32.00 [address] [address]- 3971 October, Angioma serpiginosum of skin 448.[address] [id number] [address] October, Major depression, recurrent 296.30 and No condition on [place] II V71.09 [place] [id number] [place] [address] 42066- 0809 October, Angioma serpiginosum of skin 448.1 [place] [address] [address] [address]- 4985 Sep, [place] [id number] [place] [address]- 3736 Sep, [facility] [address] [id number] [place] [address]- 9742 Aug, [facility] [place] [facility] [address] [id number] [place] [address] 2546 Aug, [facility] [place] [facility] [address] [id number] [place] [address]- 1135 Jul, [facility] [place] [facility] [address] [id number] [place] [address]- 4924 Jul, [facility] [address] [id number] [place] [address]- 6104 Mar, [facility] [address] [facility] [id number] [place] [address]- 9060 Mar, [facility] [address] [place] [id number] [place] [address]- 8363 Dec, [facility] [address] [facility] [id number] [id number] Nov, [facility] [address] [facility] [id number][place] [id number] Nov, [facility] [address] [facility] [id number] [place] [address]- 6396 October, [facility] [address] [id number] [place] [address]- 0476 October, [facility] [place] [facility] [address] [id number] [place] [address]- 0128 October, [facility] [place] [facility] [address] [id number] [place] [address]- 9426 October, [facility] [place] [facility] [address] [facility] [id number] [place] [address]- 1356 October, [facility] [place] [facility] [address] [id number] [place] [address]- 9766 Sep, [facility] [place] [facility] [address] [id number] [place] [address]- 9703 24 Sep, 2012 [facility] [address] [id number] [place] [address]- 0472 Sep, [facility] [address] [id number] [place] [id number] Aug, [facility] [address] [id number] [place] [address]- 8606 Aug, [facility] [address] [id number] [place] [address]- 9304 Jul, [facility] [address] [id number] [place] [address]- 2101 Mar, [facility] [address] [id number] [place] [address]- 9682 Dec, [facility] [address] [id number] [place] [address]- 1664 Nov, [facility] [address] [id number] [place] [address]- 5879 Nov, [facility] [address] [id number] [place] [address]- 5536 Nov, [facility] [address] [id number] [place] [address]- 9459 Nov, [facility] [address] [id number] [place] [address]- 0566 Nov, [facility] [address] [id number] [place] [address]- 5731 Nov, [facility] [place] [facility] [address] [id number] [place] [address]- 8175 Nov, [facility] [place] [facility] [address] [id number] [place] [address]- 1335 October, [facility] [address] [id number] [place] [address]- 9188 October, [facility] [address] [facility] [id number] [place] [address]- 5046 October, [facility] [address] [address]- 5446 October, [facility] [address] [address]- 1606 October, [facility] [address] [address]- 9516 October, [facility] [address] [facility] [id number] [place] [address]- 3606 October, [facility] [address] [address]- 0836 Sep, [facility] [address] [address]- 6063 Aug, [facility] [address] [address]- 9976 Aug, [facility] [id number] [address] Aug, [facility] [id number] [address] Aug, [facility] [id number] [address] May, [facility] [id number] [address] May, [facility] [id number] [address] May, IMMUNIZATIONS No Known Immunizations SOCIAL HISTORY Never Assessed REASON FOR VISIT f/u PLAN OF CARE Activity Details Follow Up 2 Weeks Reason:Depression, Anxiety VITAL SIGNS MEDICATIONS Medication Instructions Dosage Frequency Start Date End Date Duration Status Zoloft 50 MG Orally Once a day 1 tablet 24h 30 day(s) Active RESULTS No Results PROCEDURES Procedure Date Ordered Result Body Site Psychotherapy, patient &/family, 45 minutes, established patient December 30, 2016 INSTRUCTIONS MEDICATIONS ADMINISTERED No Known Medications MEDICAL (GENERAL) HISTORY Type Description Date Medical History Irregular menstrual cycle Medical History Depressive disorder, not elsewhere classified Medical History Obesity, unspecified Medical History Frequent UTIs Surgical History tonsillectomy and adenoidectomy 2002 Hospitalization History Surgery(s) only 2001 Hospitalization History [facility] 2013
--- OUTSIDE RECORDS SUMMARY | 2018-04-09 17:45 | XMS REPORT ---
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 Active 12920707 Problem Anxiety F41.9 Active 33787260 Problem Dysuria R30.0 Active 74462756 Problem Screen for STD (sexually transmitted disease) Z11.3 Active 965638060 Problem Other chest pain R07.89 Active 90221984 Problem Encounter for initial prescription of other contraceptives Z30.018 Active 245082821 Problem control counseling Z30.9 Active 31890822 Problem History of unprotected sex Z72.51 Active 6840258 Problem Routine health maintenance Z00.00 Active 028926938 Problem Irregular menstruation, unspecified N92.6 Active 75098225 Problem Moderate episode of recurrent major depressive disorder F33.1 Active 691545436 Problem Encounter for gynecological examination Z01.419 Active 775907572 Problem Obesity (BMI 30-39.9) E66.9 Active 247053981 ALLERGIES No Known Allergies ENCOUNTERS Encounter Location Date Diagnosis [facility] [address] [facility] [id number] [address] Aug, [facility] [address] [facility] [id number] [place] [address] Mar, control counseling Z30.9 ; Encounter for initial prescription of transdermal patch hormonal contraceptive device Z30.016 and Routine screening for STI (sexually transmitted infection) Z11.3 [facility] [address] [place] [id number] [place] [address] 16 Feb, 2017 [facility] [place] [id number] [place] [address] 12 Feb, 2017 Abnormal uterine bleeding (AUB) N93.9 and Candidiasis of female genitalia B37.[address] [address] Feb, [facility] [address] [address] 14 Dec, 2016 Dysuria R30.0 and Acute cystitis with hematuria N30.[address] [address] Dec, Anxiety F41.9 ; Major depressive disorder, recurrent episode , moderate F33.1 and 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 [place] [id number] [place] [address] Dec, Anxiety F41.9 ; Major depressive disorder, recurrent episode , moderate F33.1 and 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 [place] [id number] [place] [address] Dec, Anxiety F41.9 ; Major depressive disorder, recurrent episode , moderate F33.1 and 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 [address] [place] [id number] [place] [address] Sep, Nail, ingrown L60.0 and Infected nail bed of toe L03.039 [facility] [address] [place] [id number] [place] [address] Aug, Encounter for Depo-Provera contraception Z30.42 [facility] [place] [address] [address] Jun, Encounter for Depo-Provera contraception Z30.[address] [address] Mar, Anxiety F41.9 ; Encounter for Depo-Provera contraception Z30.42 ; Major depressive disorder, recurrent episode, moderate F33.1 and control counseling Z30.[address] [address] Feb, control counseling Z30.9 ; Irregular menstruation, unspecified N92.6 ; Other chest pain R07.89 ; Anxiety F41.9 and Screen for STD ( sexually transmitted disease) Z11.3 [place] [address] [address] Jan, [place] [address] [address] Jan, [address] [address] Jan, Moderate episode of recurrent major depressive disorder F33.1 ; Obesity (BMI 30-39.9) E66.9 ; High-risk sexual behavior Z72.51 ; Dysuria R30.0 and Restless legs G25.81 [place] [address] [place] [id number] [place] [address] Nov, Major depressive disorder, recurrent episode, moderate F33.1 [place] [address] [address] 16 Nov, 2015 Moderate episode of recurrent major depressive disorder F33.1 and Obesity (BMI 30-39.9) E66.9 [place] [id number] [place] [address] Nov, [place] [address] [place] [id number] [place] [address] 07 Nov, 2015 Obesity (BMI 30-39.9) E66.9 [place] [address] [place] [id number] [place] [address] October, Major depressive disorder, recurrent episode, moderate F33.1 [place] [address] [place] [id number] [place] [address] October, Routine health maintenance Z00.00 ; Insulin resistance E88.81 ; Obesity (BMI 30-39.9) E66.9 and Moderate episode of recurrent major depressive disorder F33.1 [place] [address] [place] [id number] [place] [address] October, Encounter for gynecological examination Z01.419 ; Irregular menstruation, unspecified N92.6 ; History of unprotected sex Z72.51 ; control counseling Z30.9 and Encounter for initial prescription of other contraceptives Z30.018 [place] [address] [place] [address] Jul, Encounter for test Z32.00 [address] [place] [address] October, Angioma serpiginosum of skin 448.[address] [id number] [id number] October, Major depression, recurrent 296.30 and No condition on [place] V71.09 [place] [address] [address] October, Angioma serpiginosum of skin 448.1 [place] [address] [place] [address] Sep, [facility] [address] [id number] [place] [address] Sep, [facility] [place] [facility] [address] [id number] [place] [address] Aug, [facility] [place] [facility] [address] [facility] [id number] [place] [address] Aug, [facility] [place] [facility] [address] [id number] [place] [address] Jul, [facility] [place] [facility] [address] [id number] [place] [address] Jul, [facility] [place] [facility] [address] [facility] [id number] [place] [address] Mar, [facility] [address] [facility] [id number] [place] [address] Mar, [facility] [address] [facility] [id number] [place] [address] Dec, [facility] [address] [facility] [id number] [id number] Nov, [facility] [address] [facility] [id number][place] [id number] Nov, [facility] [address] [facility] [id number] [place] [address] October, [facility] [place] [facility] [address] [id number] [place] [address] October, [facility] [place] [facility] [address] [facility] [id number] [place] [address] October, [facility] [place] [facility] [address] [facility] [id number] [place] [address] October, [facility] [place] [facility] [address] [facility] [id number] [place] [address] October, [facility] [place] [facility] [address] [facility] [id number] [place] [address] Sep, [facility] [address] [facility] [id number] [place] [address] 24 Sep, 2012 [facility] [place] [facility] [address] [facility] [id number] [place] [address] Sep, [facility] [address] [facility] [id number] [place] [id number] Aug, [facility] [place] [facility] [address] [facility] [id number] [place] [address] Aug, [facility] [place] [facility] [address] [facility] [id number] [place] [address] Jul, [facility] [place] [facility] [address] [facility] [id number] [place] [address] Mar, [facility] [address] [place] [address] Dec, [facility] [place] [facility] [address] [place] [id number] [place] [address] Nov, [facility] [place] [facility] [address] [place] [id number] [place] [address] Nov, [facility] [place] [facility] [address] [place] [id number] [place] [address] Nov, [facility] [place] [facility] [address] [place] [id number] [place] [address] Nov, [facility] [place] [facility] [address] [facility] [id number] [place] [address] Nov, [facility] [place] [facility] [address] [facility] [id number] [place] Nov, [facility] [place] [facility] [address] [facility] [id number] [place] [address] Nov, [facility] [place] [facility] [address] [place] [id number] October, [facility] [place] [facility] [address] [facility] [id number] [place] [address] October, [facility] [address] [facility] [id number] [place] [address] October, [facility] [address] [facility] [id number] [place] [address] October, [facility] [address] [facility] [id number] [place] [address] October, [facility] [address] [facility] [id number] [place] [address] October, [facility] [address] [place] [id number] [place] [address] October, [facility] [address] [place] [id number] [address] Sep, [facility] [address] [address] Aug, [facility] [address] [place] [id number] [address] Aug, [facility] [address] [place] [id number] [address] Aug, [facility] [address] [place] [id number] [address] Aug, [facility] [address] [place] [id number] [address] May, [facility] [address] [facility] [id number] [place] [address] May, [facility] [address] [place] [id number] [address] May, IMMUNIZATIONS No Known Immunizations SOCIAL HISTORY Never Assessed REASON FOR VISIT left ingrown toenail that is bothering her for 2 years now. great toe on left foot. kbullardsagarn PLAN OF CARE VITAL SIGNS Height 61 in 2016-10-22 Weight 201.4 lbs 2016-10-22 Temperature 98.2 degrees Fahrenheit 2016-10-22 Heart Rate 84 bpm 2016-10-22 Respiratory Rate 20 2016-10-22 BMI 38.05 kg/m2 2016-10-22 Blood pressure systolic 114 mmHg 2016-10-22 Blood pressure diastolic 66 mmHg 2016-10-22 MEDICATIONS Medication Instructions Dosage Frequency Start Date End Date Duration Status Keflex 500 mg Orally 4 times a day 1 capsule 6h Sep, October, 10 day(s) Active RESULTS No Results PROCEDURES No Known procedures INSTRUCTIONS MEDICATIONS ADMINISTERED No Known Medications MEDICAL (GENERAL) HISTORY Type Description Date Medical History Irregular menstrual cycle Medical History Depressive disorder, not elsewhere classified Medical History Obesity, unspecified Medical History Frequent UTIs Surgical History tonsillectomy and adenoidectomy 2001 Hospitalization History Surgery(s) only 2001 Hospitalization History [facility] 2012
--- OUTSIDE RECORDS SUMMARY | 2018-04-09 17:46 | XMS REPORT ---
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 Active 77137068 Problem Anxiety F41.9 Active 50458396 Problem Dysuria R30.0 Active 86186098 Problem Screen for STD (sexually transmitted disease) Z11.3 Active 355176935 Problem Other chest pain R07.89 Active 97654689 Problem Encounter for initial prescription of other contraceptives Z30.018 Active 308516582 Problem control counseling Z30.9 Active 57172258 Problem History of unprotected sex Z72.51 Active 9523042 Problem Routine health maintenance Z00.00 Active 623353925 Problem Irregular menstruation, unspecified N92.6 Active 34926090 Problem Moderate episode of recurrent major depressive disorder F33.1 Active 291753127 Problem Encounter for gynecological examination Z01.419 Active 293031101 Problem Obesity (BMI 30-39.9) E66.9 Active 122018388 ALLERGIES No Known Allergies ENCOUNTERS Encounter Location Date Diagnosis [facility] [address] [facility] [id number] [address] 17 Mar, 2017 control counseling Z30.9 ; Encounter for initial prescription of transdermal patch hormonal contraceptive device Z30.016 and Routine screening for STI (sexually transmitted infection) Z11.3 [facility] [address] [facility] [id number] [address] 16 Feb, 2017 [facility] [place] [address] [place] [address] 12 Feb, 2017 Abnormal uterine bleeding (AUB) N93.9 and Candidiasis of female genitalia B37.3 [place] [address] [place] [id number] [place] [address] 12 Feb, 2017 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 [place] [id number] [place] [address] Nov, Irritant contact dermatitis due to other agents L24.89 and Chigger bites B88.0 [place] [id number] [place] [address]25[address] October, Nail, ingrown L60.0 [facility] [place] [id number] [place] [address] Sep, Nail, ingrown L60.0 and Infected nail bed of toe L03.039 [facility] [address] [place] [id number] [place] [address] Aug, Encounter for Depo-Provera contraception Z30.42 [facility] IN [facility] [address] [place] [id number] [place] [address] Jun, Encounter for Depo-Provera contraception Z30.42 [place] [address] [address] Mar, Anxiety F41.9 ; Encounter for Depo-Provera contraception Z30.42 ; Major depressive disorder, recurrent episode, moderate F33.1 and control counseling Z30.9 [place] [address] [address] Feb, control counseling Z30.9 ; Irregular menstruation, unspecified N92.6 ; Other chest pain R07.89 ; Anxiety F41.9 and Screen for STD ( sexually transmitted disease) Z11.3 [place] [address] [place] [id number] [place] [address]- [address] Jan, [place] [address] [address] Jan, [place] [address] [place] [id number] [place] [address] 78[address] Jan, Moderate episode of recurrent major depressive disorder F33.1 ; Obesity (BMI 30-39.9) E66.9 ; High-risk sexual behavior Z72.51 ; Dysuria R30.0 and Restless legs G25.81 [place] [address] [place] [id number] [place] [address] Nov, Major depressive disorder, recurrent episode, moderate F33.1 [place] [address] [place] [id number] [place] [address]85- 1205 Nov, Moderate episode of recurrent major depressive disorder F33.1 and Obesity (BMI 30-39.9) E66.9 [place] [address] [address] Nov, [place] [address] [place] [address] 90338[address] 6181 Nov, Obesity (BMI 30-39.9) E66.9 [place] [address] [place] [id number] [place] [address]56[address] 5[address] October, Major depressive disorder, recurrent episode, moderate F33.1 [place] [address] [place] [address]140- 4761 October, Routine health maintenance Z00.00 ; Insulin resistance E88.81 ; Obesity (BMI 30-39.9) E66.9 and Moderate episode of recurrent major depressive disorder F33.1 [address] [place] [address] October, Encounter for gynecological examination Z01.419 ; Irregular menstruation, unspecified N92.6 ; History of unprotected sex Z72.51 ; control counseling Z30.9 and Encounter for initial prescription of other contraceptives Z30.018 [address] [place] [address]87- 8660 Jul, Encounter for test Z32.00 [address] [place] [address]9765- 9765 October, Angioma serpiginosum of skin 448.[address] [id number] [id number] October, Major depression, recurrent 296.30 and No condition on Vista II V71.09 [address] [place] [address] 58405- 1681 October, Angioma serpiginosum of skin 448.1 [place] [address] [address] Sep, [address] [place] [address] Sep, [facility] [address] [id number] [place] [address] Aug, [facility] [address] [id number] [place] [address] Aug, [facility] [address] [id number] [place] [address] Jul, [facility] [address] [id number] [place] [address] Jul, [facility] [address] [facility] [id number] [place] [address] Mar, [facility] [address] [facility] [id number] [place] [address] Mar, [facility] [address] [facility] [id number] [place] [address] Dec, [facility] [address] [facility] [id number] [id number] Nov, [facility] [address] [facility] [id number] [id number] Nov, [facility] [address] [facility] [id number] [place] [address] October, [facility] [address] [facility] [id number] [place] [address] October, [facility] [place] [facility] [address] [facility] [id number] [place] [address] October, [facility] [place] [facility] [address] [facility] [id number] [place] [address] October, [facility] [place] [facility] [address] [facility] [id number] [place] [address] October, [facility] [place] [facility] [address] [facility] [id number] [place] [address] Sep, [facility] [place] [facility] [address] [id number] [place] [address] Sep, [facility] [address] [id number] [place] [address] Sep, [facility] [address] [id number] [place] [id number] Aug, [facility] [address] [id number] [place] [address] Aug, [facility] [address] [id number] [place] [address] Jul, [facility] [address] [id number] [place] [address] Mar, [facility] [address] [id number] [place] [address] Dec, [facility] [address] [id number] [place] [address] Nov, [facility] [address] [id number] [place] [address] Nov, [facility] [address] [id number] [place] [address] Nov, [facility] [address] [id number] [place] [address] Nov, [facility] [address] [id number] [place] [address] 39[address] Nov, [facility] [address] [id number] [place] [address]- 86[address] Nov, [facility] [place] [facility] [address] [id number] [place] [address]- [address] Nov, [facility] [address] [id number] [place] [address]- 5[address] October, [facility] [address] [id number] [place] [address] October, [facility] [address] [facility] [id number], [place] [address] October, [facility] [address] [facility] [id number], [place] [address] October, [facility] [address] [facility] [id number], [place] [address] October, [facility] [address] [facility] [id number], [place] [address] October, [facility] [address] [facility] [id number], [place] [address] October, [facility] [address] [facility] [id number][place] [address] Sep, [facility] [address] [id number], [place] [address] Aug, [facility] [address] [address] Aug, [facility] [address] [place] [id number], [place] [address] Aug, [facility] [address] [place] [id number], [place] [address] Aug, [facility] [address] [place] [id number], [place] [address] May, [facility] [address] [id number], [place] [address] May, [facility] [address] [facility] [id number], [place] [address] May, IMMUNIZATIONS No Known Immunizations SOCIAL HISTORY Never Assessed REASON FOR VISIT HARRY f/u PLAN OF CARE Activity Details Follow Up 4 Weeks Reason:HARRY f/u VITAL SIGNS Height 61 in 2016-12-30 Weight 202 lbs 2016-12-30 Heart Rate 70 bpm 2016-12-30 BMI 38.16 kg/m2 2016-12-30 Blood pressure systolic 110 mmHg 2016-12-30 Blood pressure diastolic 72 mmHg 2016-12-30 MEDICATIONS Medication Instructions Dosage Frequency Start Date End Date Duration Status Zoloft 50 MG Orally Once a day 1 tablet 24h Dec, 30 day(s) Active RESULTS No Results PROCEDURES Procedure Date Ordered Result Body Site Billing Notes on claim December 30, 2016 INSTRUCTIONS MEDICATIONS ADMINISTERED No Known Medications MEDICAL (GENERAL) HISTORY Type Description Date Medical History Irregular menstrual cycle Medical History Depressive disorder, not elsewhere classified Medical History Obesity, unspecified Medical History Frequent UTIs Surgical History tonsillectomy and adenoidectomy 2001 Hospitalization History Surgery(s) only 2002 Hospitalization History [facility] 2013
--- OUTSIDE RECORDS SUMMARY | 2018-04-09 17:46 | XMS REPORT ---
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 Active 28377658 Problem Anxiety F41.9 Active 64238174 Problem Dysuria R30.0 Active 32107134 Problem Screen for STD (sexually transmitted disease) Z11.3 Active 777541281 Problem Other chest pain R07.89 Active 16348726 Problem Encounter for initial prescription of other contraceptives Z30.018 Active 688600934 Problem control counseling Z30.9 Active 57788294 Problem History of unprotected sex Z72.51 Active 0205422 Problem Routine health maintenance Z00.00 Active 966311629 Problem Irregular menstruation, unspecified N92.6 Active 17982260 Problem Moderate episode of recurrent major depressive disorder F33.1 Active 463765380 Problem Encounter for gynecological examination Z01.419 Active 957118652 Problem Obesity (BMI 30-39.9) E66.9 Active 789246362 ALLERGIES No Information ENCOUNTERS Encounter Location Date Diagnosis [facility] [address] [facility] [id number], [place] [address] 17 Mar, 2017 control counseling Z30.9 ; Encounter for initial prescription of transdermal patch hormonal contraceptive device Z30.016 and Routine screening for STI (sexually transmitted infection) Z11.3 [facility] [address] [facility] [id number], [place] [address] 16 Feb, 2017 [facility] [place] [address] [place] [address] 12 Feb, 2017 Abnormal uterine bleeding (AUB) N93.9 and Candidiasis of female genitalia B37.3 [place] [address] [place] [id number] [place] [address] 12 Feb, 2017 [facility] [address] [address] Dec, Dysuria R30.0 and Acute cystitis with hematuria N30.[address] [address] Dec, Anxiety F41.9 ; Major depressive disorder, recurrent episode , moderate F33.1 and 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 [place] [id number] [place] [address] Dec, Anxiety F41.9 ; Major depressive disorder, recurrent episode , moderate F33.1 and 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 [place] [id number] [place] [address] Dec, Anxiety F41.9 ; Major depressive disorder, recurrent episode , moderate F33.1 and 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 [place] [address] [place] [id number] [place] [address] Nov, Anxiety F41.9 ; Major depressive disorder, recurrent episode , moderate F33.1 and 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 [facility] [place] [id number] [place] [address] Nov, Irritant contact dermatitis due to other agents L24.89 and Chigger bites B88.0 [place] [id number] [place] [address] October, Nail, ingrown L60.0 [facility] [address] [address] Sep, Nail, ingrown L60.0 and Infected nail bed of toe L03.039 [facility] [address] [place] [id number] [place] [address] Aug, Encounter for Depo-Provera contraception Z30.42 [facility] [address] [place] [id number] [place] [address] Jun, Encounter for Depo-Provera contraception Z30.42 [place] [address] [address] Mar, Anxiety F41.9 ; Encounter for Depo-Provera contraception Z30.42 ; Major depressive disorder, recurrent episode, moderate F33.1 and control counseling Z30.9 [place] [address] [place] [id number] [place] [address] Feb, control counseling Z30.9 ; Irregular menstruation, unspecified N92.6 ; Other chest pain R07.89 ; Anxiety F41.9 and Screen for STD ( sexually transmitted disease) Z11.3 [place] [address] [place] [id number] [place] [address] Jan, [place] [address] [place] [id number] [place] [address] Jan, [place] [address] [place] [id number] [place] [address] Jan, Moderate episode of recurrent major depressive disorder F33.1 ; Obesity (BMI 30-39.9) E66.9 ; High-risk sexual behavior Z72.51 ; Dysuria R30.0 and Restless legs G25.81 [place] [address] [address] Nov, Major depressive disorder, recurrent episode, moderate F33.1 [place] [address] [place] [id number] [place] [address] Nov, Moderate episode of recurrent major depressive disorder F33.1 and Obesity (BMI 30-39.9) E66.9 [place] [address] [address] Nov, [place] [address] [place] [id number] [place] [address] Nov, Obesity (BMI 30-39.9) E66.9 [place] [address] [place] [address] October, Major depressive disorder, recurrent episode, moderate F33.1 [place] [address] [place] [id number] [place] [address] October, Routine health maintenance Z00.00 ; Insulin resistance E88.81 ; Obesity (BMI 30-39.9) E66.9 and Moderate episode of recurrent major depressive disorder F33.[address] [place] [address] October, Encounter for gynecological examination Z01.419 ; Irregular menstruation, unspecified N92.6 ; History of unprotected sex Z72.51 ; control counseling Z30.9 and Encounter for initial prescription of other contraceptives Z30.018 [place] [id number] [place] [address] Jul, Encounter for test Z32.[address] [place] [address] October, Angioma serpiginosum of skin 448.[address] [id number] [id number] October, Major depression, recurrent 296.30 and No condition on Bailey II V71.09 [address] [place] [address] October, Angioma serpiginosum of skin 448.[address] [place] [address] Sep, [place] [id number] [address] Sep, [facility] [address] [id number] [place] [address] Aug, [facility] [place] [facility] [address] [id number] [place] [address] Aug, [facility] [place] [facility] [address] [facility] [id number] [place] [address] Jul, [facility] [place] [facility] [address] [id number] [place] [address] Jul, [facility] [place] [facility] [address] [facility] [id number] [place] [address] Mar, [facility] [place] [facility] [address] [facility] [id number] [place] [address] Mar, [facility] [address] [facility] [id number] [place] [address] Dec, [facility] [address] [facility] [id number] [id number] Nov, [facility] [address] [facility] [id number] [id number] Nov, [facility] [address] [facility] [id number] [place] [address]46 October, [facility] [place] [facility] [address] [facility] [id number], [place] [address] October, [facility] [place] [facility] [address] [facility] [id number] [place] [address] October, [facility] [place] [facility] [address] [id number] [place] [address] October, [facility] [place] [facility] [address] [facility] [id number] [place] [address] October, [facility] [place] [facility] [address] [facility] [id number] [place] [address] Sep, [facility] [place] [facility] [address] [id number] [place] [address] 24 Sep, 2012 [facility] [address] [id number] [place] [address] Sep, [facility] [address] [id number] [place] [id number] 28 Aug, 2012 [facility] [address] [id number] [place] [address] Aug, [facility] [address] [id number] [place] [address] Jul, [facility] [address] [id number] [place] [address] Mar, [facility] [address] [id number] [place] [address] Dec, [facility] [address] [id number] [place] [address] 35[address] Nov, [facility] [address] [id number] [place] [address] 9[address] Nov, [facility] [address] [id number] [place] [address] 7[address] Nov, [facility] [address] [id number] [place] [address] 20[address] Nov, [facility] [address] [id number] [place] [address] 4[address] Nov, [facility] [address] [id number] [place] [address]- 69[address] Nov, [facility] [place] [facility] [address] [id number] [place] [address] 39[address] Nov, [facility] [place] [facility] [address] [id number] [place] [address]- 32[address] October, [facility] [address] [id number] [place] [address] October, [facility] [address] [facility] [id number], [place] [address] October, [facility] [address], [place] [address] October, [facility] [address] [facility] [id number], [place] [address] October, [facility] [address], [place] [address] October, [facility] [address] [facility] [id number], [place] [address] October, [facility] [address] [address] Sep, [facility] [address], [place] [address] Aug, [facility] [address], [place] [address] Aug, [facility] [address], [place] [address] Aug, [facility] [address], [place] [address] Aug, [facility] [address] [id number] May, [facility] [address] [id number], [place] [address] May, [facility] [address] [id number], [place] [address] May, IMMUNIZATIONS No Known Immunizations SOCIAL HISTORY Never Assessed REASON FOR VISIT triage - CBowmanRN PLAN OF CARE VITAL SIGNS MEDICATIONS No Known Medications RESULTS No Results PROCEDURES No Known procedures INSTRUCTIONS MEDICATIONS ADMINISTERED No Known Medications MEDICAL (GENERAL) HISTORY Type Description Date Medical History Irregular menstrual cycle Medical History Depressive disorder, not elsewhere classified Medical History Obesity, unspecified Medical History Frequent UTIs Surgical History tonsillectomy and adenoidectomy 2001 Hospitalization History Surgery(s) only 2002 [facility] [place]
--- OUTSIDE RECORDS SUMMARY | 2018-04-09 17:47 | XMS REPORT ---
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 Active 08432269 Problem Anxiety F41.9 Active 73926349 Problem Dysuria R30.0 Active 27738716 Problem Screen for STD (sexually transmitted disease) Z11.3 Active 068412546 Problem Other chest pain R07.89 Active 27893634 Problem Encounter for initial prescription of other contraceptives Z30.018 Active 804840015 Problem control counseling Z30.9 Active 65748503 Problem History of unprotected sex Z72.51 Active 7720640 Problem Routine health maintenance Z00.00 Active 895578795 Problem Irregular menstruation, unspecified N92.6 Active 59591114 Problem Moderate episode of recurrent major depressive disorder F33.1 Active 777775661 Problem Encounter for gynecological examination Z01.419 Active 823751348 Problem Obesity (BMI 30-39.9) E66.9 Active 353362711 ALLERGIES No Known Allergies ENCOUNTERS Encounter Location Date Diagnosis [facility] [address] [facility] [id number] [address] 17 Mar, 2017 control counseling Z30.9 ; Encounter for initial prescription of transdermal patch hormonal contraceptive device Z30.016 and Routine screening for STI (sexually transmitted infection) Z11.3 [facility] [address] [facility] [id number] [address] 16 Feb, 2017 [facility] [id number] [place] [address] 12 Feb, 2017 Abnormal uterine bleeding (AUB) N93.9 and Candidiasis of female genitalia B37.3 [place] [address] [place] [id number] [place] [address] 12 Feb, 2017 [facility] [place] [id number] [place] [address] 14 Dec, 2016 Dysuria R30.0 and Acute cystitis with hematuria N30.01 [place] [id number] [place] [address] Dec, Anxiety F41.9 ; Major depressive disorder, recurrent episode , moderate F33.1 and 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 [place] [id number] [place] [address]83 Dec, Anxiety F41.9 ; Major depressive disorder, recurrent episode , moderate F33.1 and 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 [place] [id number] [place] [address] 93566[address] Dec, Anxiety F41.9 ; Major depressive disorder, recurrent episode , moderate F33.1 and 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 [place] [id number] [place] [address] Nov, Anxiety F41.9 ; Major depressive disorder, recurrent episode , moderate F33.1 and 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 [facility] [place] [id number] [place] [address] Nov, Irritant contact dermatitis due to other agents L24.89 and Chigger bites B88.0 [place] [id number] [place] [address] 48[address] October, Nail, ingrown L60.0 [facility] [place] [id number] [place] [address] Sep, Nail, ingrown L60.0 and Infected nail bed of toe L03.039 [facility] [id number] [place] [address] Aug, Encounter for Depo-Provera contraception Z30.42 [facility] [id number] [place] [address] Jun, Encounter for Depo-Provera contraception Z30.42 [place] [address] [address] Mar, Anxiety F41.9 ; Encounter for Depo-Provera contraception Z30.42 ; Major depressive disorder, recurrent episode, moderate F33.1 and control counseling Z30.9 [place] [address] [address] Feb, control counseling Z30.9 ; Irregular menstruation, unspecified N92.6 ; Other chest pain R07.89 ; Anxiety F41.9 and Screen for STD ( sexually transmitted disease) Z11.3 [place] [id number] [place] [address] Jan, [place] [address] [address] Jan, [place] [address] [address] Jan, Moderate episode of recurrent major depressive disorder F33.1 ; Obesity (BMI 30-39.9) E66.9 ; High-risk sexual behavior Z72.51 ; Dysuria R30.0 and Restless legs G25.81 [place] [address] [address] Nov, Major depressive disorder, recurrent episode, moderate F33.1 [place] [id number] [place] [address] 24267[address] 82[address] Nov, Moderate episode of recurrent major depressive disorder F33.1 and Obesity (BMI 30-39.9) E66.9 [place] [address] [address] Nov, [place] [address] [id number] [place] [address]1767[address] 8[address] Nov, Obesity (BMI 30-39.9) E66.9 [place] [id number] [place] [address] 19442[address] October, Major depressive disorder, recurrent episode, moderate F33.1 [place] [id number] [place] [address] 40[address] October, Routine health maintenance Z00.00 ; Insulin resistance E88.81 ; Obesity (BMI 30-39.9) E66.9 and Moderate episode of recurrent major depressive disorder F33.1 [address] [place] [address]3863[address] October, Encounter for gynecological examination Z01.419 ; Irregular menstruation, unspecified N92.6 ; History of unprotected sex Z72.51 ; control counseling Z30.9 and Encounter for initial prescription of other contraceptives Z30.018 [address] [place] [address]67[address] Jul, Encounter for test Z32.00 [address] [address] October, Angioma serpiginosum of skin [address] [place] [address] [facility] [address] [id number] [id number] October, Major depression, recurrent 296.30 and No condition on [place] II V71.09 [place] [id number] [place] [address]74[address] 7[address] October, Angioma serpiginosum of skin 448.1 [address] [address] Sep, [place] [id number] [place] [address] Sep, [facility] [address] [id number] [place] [address] Aug, [facility] [place] [facility] [address] [id number] [place] [address] Aug, [facility] [place] [facility] [address] [id number] [place] [address] Jul, [facility] [place] [facility] [address] [id number] [place] [address]48 Jul, [facility] [address] [id number] [place] [address] Mar, [facility] [address] [facility] [id number] [place] [address] Mar, [facility] [address] [facility] [id number] [place] [address] Dec, [facility] [address] [facility] [id number][place] [id number] Nov, [facility] [address] [facility] [id number][place] [id number] Nov, [facility] [address] [facility] [id number] [place] [address] October, [facility] [address] [facility] [id number] [place] [address] October, [facility] [place] [facility] [address] [facility] [id number] [place] [address] October, [facility] [place] [facility] [address] [id number] [place] [address] October, [facility] [place] [facility] [address] [facility] [id number] [place] [address] October, [facility] [place] [facility] [address] [facility] [id number] [place] [address] Sep, [facility] [place] [facility] [address] [id number] [place] [address] Sep, [facility] [address] [id number] [place] [address] Sep, [facility] [address] [id number] [place] [id number] Aug, [facility] [address] [id number] [place] [address] Aug, [facility] [address] [id number] [place] [address] Jul, [facility] [address] [id number] [place] [address] Mar, [facility] [address] [id number] [place] [address] Dec, [facility] [address] [id number] [place] [address] Nov, [facility] [address] [id number] [place] [address] Nov, [facility] [address] [id number] [place] [address] Nov, [facility] [address] [id number] [place] [address]- [address] Nov, [facility] [address] [id number] [place] [address] 132[address] Nov, [facility] [address] [id number] [place] [address] Nov, [facility] [address] [id number] [place] [address] Nov, [facility] [address] [id number] [place] [address] 6[address] October, [facility] [address] [id number] [place] [address] October, [facility] [address] [facility] [id number] [address] October, [facility] [address] [facility] [id number] [address] October, [facility] [address] [facility] [id number] [address] October, [facility] [address] [facility] [id number] [address] October, [facility] [address] [id number] [address] October, [facility] [address] [facility] [id number] [address] Sep, [facility] [address] [facility] [id number] [address] Aug, [facility] [address] [facility] [id number] [address] Aug, [facility] [address] [facility] [id number] [place] [address] Aug, [facility] [address] [place] [id number] [address] Aug, [facility] [address] [facility] [id number] [address] May, [facility] [address] [facility] [id number] [address] May, [facility] [address] [facility] [id number] [place] [address] May, IMMUNIZATIONS No Known Immunizations SOCIAL HISTORY Never Assessed REASON FOR VISIT dysuria, urgency with little results. been like this for a week now. pt has a history of UTIs. [email or web address] PLAN OF CARE Activity Details Follow Up prn Reason: VITAL SIGNS Height 61 in 2017-01-06 Weight 202.2 lbs 2017-01-06 Temperature 97.0 degrees Fahrenheit 2017-01-06 Heart Rate 76 bpm 2017-01-06 Respiratory Rate 20 2017-01-06 BMI 38.20 kg/m2 2017-01-06 Blood pressure systolic 116 mmHg 2017-01-06 Blood pressure diastolic 74 mmHg 2017-01-06 MEDICATIONS Medication Instructions Dosage Frequency Start Date End Date Duration Status Bactrim DS 800-160 MG Orally Twice a day 1 tablet 12h 14 Dec, 2016Dec 5 days Active Zoloft 50 MG Orally Once a day 1 tablet 24h 30 day(s) Active RESULTS Name Result Date Reference Range UA LONG DIP (IN HOUSE) 2017-01-06 Lot # [id number] Exp date 2017 05 31 Clarity clear Color yellow Odor none GLU negative TIGIST negative KET negative SG >1.030 BLO 2+ pH 5.5 Protein 1+ URO 0.2 NIT positive ABHINAV 1+ Lot # [id number] Exp date 2017 02 CULTURE, URINE 2017-01-06 Urine Culture, Routine Final report Result 1 Escherichia coli Antimicrobial Susceptibility PROCEDURES Procedure Date Ordered Result Body Site URINALYSIS, AUTO, W/O SCOPE January 06, 2017 URINE CULTURE/COLONY COUNT January 06, 2017 INSTRUCTIONS MEDICATIONS ADMINISTERED No Known Medications MEDICAL (GENERAL) HISTORY Type Description Date Medical History Irregular menstrual cycle Medical History Depressive disorder, not elsewhere classified Medical History Obesity, unspecified Medical History Frequent UTIs Surgical History tonsillectomy and adenoidectomy 2001 Hospitalization History Surgery(s) only 2001 Hospitalization History [facility] ([facility] 2012
--- OUTSIDE RECORDS SUMMARY | 2018-04-09 17:48 | XMS REPORT | Continuity of Care Document ---
Author Author [facility] Address Unknown Phone Unavailable Allergies Active Description Code Type Severity Reaction Onset Reported/Identified Relationship to Patient Clinical Status Yes No Known Drug Allergies [id number] Drug Allergy Unknown N/A 07/06/2017 Medications There is no data. 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 L 078.12 PLANTAR WART 05/27/2011 PATTI [...] V65.45 Anticipatory Guidance: Unsafe Sexual Practices 09/19/2012 DON SOSA PATTI L 278.00 OBESITY 09/19/2012 EATPATTI CARDENAS APRN L V65.3 DIETARY SURVEILLANCE AND COUNSELING 09/19/2012 EATPATTI CARDENAS APRN L V65.41 EXERCISE COUNSELING 09/19/2012 PATTI OCHOA APRN L V65.45 Anticipatory Guidance: Unsafe Sexual Practices 03/25/2014 NAVYA MEZA, JUAN LUIS Hoskins Ot 599.0 URIN TRACT INFECTION NOS 03/25/2014 NAVYA MEZA, JUAN LUIS Hoskins Ot 788.1 DYSURIA 08/25/2015 NAILNI MEZA, KIMBERLY Winn Ot M54.16 RADICULOPATHY, LUMBAR REGION 12/21/2015 JAVI SOMMERS Ot S76.312A STRAIN OF MSL/FASC/TND POST GRP AT [facility] 12/21/2015 JAVI SOMMERS Ot X58.XXXA EXPOSURE TO OTHER SPECIFIED FACTORS, INI 12/21/2015 JAVI SOMMERS Ot Y99.8 OTHER EXTERNAL CAUSE STATUS 12/22/2015 JAVI SOMMERS Ot S76.312A STRAIN OF MSL/FASC/TND POST GRP AT [facility] L 12/22/2015 JAVI SOMMERS Ot X58.XXXA EXPOSURE TO OTHER SPECIFIED FACTORS, INI 12/22/2015 JAVI SOMMERS Ot Y99.8 OTHER EXTERNAL CAUSE STATUS 07/06/2017 NAVYA MEZA, JUAN LUIS Hoskins Ot F17.210 NICOTINE DEPENDENCE, CIGARETTES, UNCOMPL 07/06/2017 NAVYA MEZA, JUAN LUIS Hoskins Ot F32.9 MAJOR DEPRESSIVE DISORDER, SINGLE EPISOD 07/06/2017 NAVYA MEZA, JUAN LUIS Hoskins Ot J11.1 FLU DUE TO UNIDENTIFIED INFLUENZA VIRUS 07/06/2017 NAVYA MEZA, JUAN LUIS Hoskins Ot R06.02 SHORTNESS OF BREATH 07/06/2017 NAVYA MEZA, JUAN LUIS Hoskins Ot Z87.440 PERSONAL HISTORY OF URINARY (TRACT) INFE 07/06/2017 NAVYA MEZA, JUAN LUIS Hoskins Ot Z90.89 ACQUIRED ABSENCE OF OTHER ORGANS Procedures Code [place] [address] PSYTX PT&/FAMILY 30 MINUTES 08/13/2012 55644 ROUTINE VENIPUNCTURE 09/19/2012 79577 URINE TEST (IN- HOUSE) 09/19/2012 46673 CBC 09/19/2012 95541 LIPID PANEL 09/19/2012 11181 CMP 09/19/2012 81537 A1C (RML) 09/19/2012 17479 T4 FREE 09/19/2012 32676 TSH 09/19/2012 85996 INSULIN LEVEL 09/19/2012 25327 PSYCH DIAGNOSTIC EVALUATION 09/21/2012 99337 PSYTX PT&/FAMILY 30 MINUTES 10/25/2012 85443 PSYTX PT&/FAMILY 45 MINUTES 11/07/2012 39209 PSYTX PT&/FAMILY 45 MINUTES 11/14/2012 83771 UA LONG DIP 11/21/2012 99703 PSYTX PT&/FAMILY 45 MINUTES 11/21/2012 68841 CULTURE URINE 11/21/2012 Results Test Result Range HSV 1 and 2-Specific Ab, IgG - 03/01/16 11:04 HSV 1 IgG, Type Spec 32.60 index 0.00-0.90 HSV 2 IgG, Type Spec <0.91 index 0.00-0.90 Urine Culture, Routine - 01/06/17 13:00 Urine Culture, Routine Note Urine Culture, Routine - 03/07/17 08:22 Urine Culture, Routine Note CULTURE, URINE - 03/07/17 08:22 Urine Culture, Routine Final report NRG Result 1 NRG Genital Culture, Routine - 04/11/17 11:14 Genital Culture, Routine Note CULTURE, GENITAL - 04/11/17 11:14 Genital Culture, Routine Final report NRG Result 1 NRG Influenza virus A and B antigen detection - 07/06/17 22:31 FLU RESULT NEGATIVE FOR INFLUENZA A AND B ANTIGENS BY IA NRG Encounters ACCT No. Visit Date/Time Discharge Status Pt. Type Provider Facility Loc./Unit Complaint [id number] 11/21/2012 13:33:00 11/21/2012 23:59:59 CLS Outpatient PATTI OCHOA APRN [id number] 09/19/2012 09:28:00 09/19/2012 23:59:59 CLS Outpatient PATTI OCHOA APRN [id number] 08/03/2012 10:03:00 08/03/2012 23:59:59 CLS Outpatient [id number] 11/21/2012 13:33:00 Document Registration [id number] 11/14/2012 14:59:00 Document Registration [id number] 10/24/2012 15:55:00 Document Registration [id number] 10/10/2012 15:59:00 Document Registration [id number] 03/10/2017 03:06:00 Document Registration [id number] 07/06/2017 22:19:00 07/06/2017 23:48:00 DIS Emergency NAVYA MEZA, JUAN LUIS Hoskins [facility] ER SOB [id number] 12/21/2015 15:40:00 12/21/2015 18:28:00 DIS Emergency JAVI SOMMERS [facility] ER L LEG PAIN [id number] 08/25/2015 12:54:00 08/25/2015 14:36:00 DIS Emergency KIMBERLY GAYLE MD [facility] ER BACK PAIN [id number] 03/25/2014 04:48:00 03/25/2014 06:02:00 DIS Emergency NAVYA MEZA, JUAN LUIS Hoskins [facility] ER HURTS TO URINATE [id number] 03/03/2016 08:46:00 Document Registration [id number] 04/14/2017 11:08:00 Document Registration [id number] 04/11/2017 09:20:00 04/11/2017 23:59:59 CLS [facility] [id number] 04/11/2017 09:20:00 Document Registration [id number] 03/07/2017 18:15:00 Document Registration [id number] 06/01/2017 13:22:00 06/01/2017 23:59:00 DIS Outpatient MARÍA CLARKE [id number] 01/08/2017 18:06:00 Document Registration
[2018-04-09] MEDS ORDERED: ORPHENADRINE 60 MG/2 ML (NORFLEX) AMP IM ONE (18:00)
[2018-04-09] MEDS ORDERED: KETOROLAC 60 MG/2 ML VIAL IM ONE (18:00)
[2018-04-09 18:05] LABS: BILIRUBIN,URINE NEGATIVE (NEGATIVE); CLARITY,URINE CLEAR; COLOR,URINE YELLOW; GLUCOSE, URINE (UA) NEGATIVE (NEGATIVE); KETONES,URINE NEGATIVE (NEGATIVE); LEUKOCYTE ESTERASE ,URINE NEGATIVE (NEGATIVE); NITRITE,URINE NEGATIVE (NEGATIVE); PH,URINE 6 (5-9); PROTEIN,URINE NEGATIVE (NEGATIVE); UROBILINOGEN,URINE NORMAL (NORMAL)
[2018-04-09 18:17] LABS: BACTERIA,URINE NEGATIVE /HPF
[2018-04-09 18:18] LABS: SQUAMOUS EPITHELIAL CELL,UR 0-2 /HPF
[2018-04-09] MEDS ORDERED: PRD20T PO (19:10)
[2018-04-09] MEDS ORDERED: CYCL10TA9 PO (19:10)
--- NOTE | 2018-04-09 19:11 | ED Back Pain ---
General Chief Complaint: Back Problems Stated Complaint: BACK PAIN ON LEFT SIDE Nursing Triage Note: PT CO OF BACK PAIN ON L SIDE OF BACK, DENIES INJURY Nursing Sepsis Screen: No Definite Risk Source of Information: Patient Exam Limitations: No Limitations History of Present Illness Date Seen by Provider: Apr 09, 2018 Time Seen by Provider: 17:52 Initial Comments Patient is a 22 year old female who presents to the Emergency room with complaints of low left sided back pain. She can not recall injury but the pain started yesterday when she woke up. Denies numbness and tingling to extremities or genitals, denies loss of bowel or bladder. Location: Lumbar Spine Timing/Duration: 1-2 Days Severity: Mild Pain/Injury Location: Back Associated Symptoms: denies symptoms; No numbness in legs/feet, No tingling in legs/feet, No loss of bladder control, No loss of bowel control Allergies and Home Medications Allergies Coded Allergies: No Known Drug Allergies (Unverified , 07/06/17) Home Medications Cyclobenzaprine HCl 10 Mg Tablet, 10 MG PO TID Prescribed by: AL SCOTT on 04/09/181909 Prednisone 20 Mg Tab, 40 MG PO DAILY Prescribed by: AL SCOTT on 04/09/181909 Patient Home Medication List Home Medication List Reviewed: Yes Review of Systems Constitutional: see HPI, chills, fever : No Musculoskeletal: see HPI, back pain (low left sided back pain) All Other Systems Reviewed Negative Unless Noted: Yes Past Wwnqymh-Gdwsgs-Pldckb Hx Past Med/Social Hx: Reviewed Nursing Past Med/Soc Hx Patient Social History Alcohol Use: Denies Use Recreational Drug Use: No Smoking Status: Current Everyday Smoker Type Used: Cigarettes Recent Foreign Travel: No Contact w/Someone Who Travel: No Recent Infectious Disease Expo: No Recent Hopitalizations: No Physical Abuse: No Sexual Abuse: No Past Medical History Surgeries: Yes Adenoidectomy, Tonsillectomy Respiratory: No Cardiac: No Neurological: No Genitourinary: Yes UTI-Chronic Gastrointestinal: No Musculoskeletal: No Endocrine: No HEENT: No Cancer: No Psychosocial: Yes Depression Integumentary: No Blood Disorders: No Family Medical History Reviewed Nursing Family Hx No Pertinent Family Hx Physical Exam Vital Signs Vital Signs - First Documented 04/09/18 17:52 Temp 97.1 Pulse 110 Resp 20 B/P (MAP) 129/67 (87) Pulse Ox 99 Capillary Refill : Less Than 3 Seconds Height, Weight, BMI Height: 5'1.00" Weight: 200lbs. oz. 90.469812wq; 37.78 BMI Method:Stated General Appearance: No Apparent Distress, WD/WN Neck: Full Range of Motion, Normal Inspection, Non Tender, Supple Cardiovascular: Regular Rate, Rhythm, No Edema, No Gallop, No JVD, No Murmur, Normal Peripheral Pulses Respiratory: Chest Non Tender, Lungs Clear, Normal Breath Sounds, No Accessory Muscle Use, No Respiratory Distress, Accessory Muscle Use Back: Normal Inspection, No CVA Tenderness, Vertebral Tenderness Neurologic/Psychiatric: Alert, Oriented x3, No Motor/Sensory Deficits Skin: Normal Color, Warm/Dry Progress/Results/Core Measures Results/Orders Lab Results Laboratory Tests Test 04/09/18 17:58 Range/Units Urine Color YELLOW Urine Clarity CLEAR Urine pH 6 5-9 Urine Specific Dewar 1.015 L 1.016-1.022 Urine Protein NEGATIVE NEGATIVE Urine Glucose (UA) NEGATIVE NEGATIVE Urine Ketones NEGATIVE NEGATIVE Urine Nitrite NEGATIVE NEGATIVE Urine Bilirubin NEGATIVE NEGATIVE Urine Urobilinogen NORMAL NORMAL MG/DL Urine Leukocyte Esterase NEGATIVE NEGATIVE Urine RBC (Auto) 1+ H NEGATIVE Urine RBC NONE /HPF Urine WBC NONE /HPF Urine Squamous Epithelial Cells 0-2 /HPF Urine Crystals NONE /LPF Urine Bacteria NEGATIVE /HPF Urine Casts NONE /LPF Urine Mucus NEGATIVE /LPF Urine Culture Indicated NO My Orders Orders - AL SCOTT Ua Culture If Indicated (04/09/18 17:57) Ketorolac Injection (Toradol Injection) (04/09/18 18:00) Orphenadrine Injection (Norflex Injectio (04/09/18 18:00) Im/Sub-Q Injection Non-Ab Ed (04/09/18 ) Medications Given in ED Vital Signs/I&O 04/09/18 04/09/18 17:52 19:15 Temp 97.1 97.1 Pulse 110 90 Resp 20 20 B/P (MAP) 129/67 (87) 129/67 (87) Pulse Ox 99 99 Blood Pressure Mean: 87 Progress Progress Note : Time: 19:00 Progress Note I have seen and evaluated the patient. She has had moderate relief of her back pain. I have ruled out a urinary tract infection. She agrees with plan of care plans for discharge, return precautions were given. Voices no questions or concerns. Departure Impression Primary Impression: Back strain Disposition: 01 HOME, SELF-CARE Condition: Stable/Unchanged Departure-Patient Inst. Decision time for Depature: 19:07 Referrals: [facility] (PCP/Family) Primary Care Physician Patient Instructions: Lumbar Muscle Strain (DC) Add. Discharge Instructions: Take medications as directed. Tylenol and ibuprofen as directed by the bottle for pain relief. Follow-up with her primary care provider within 1 week for recheck. Return back to the emergency room for any worsening symptoms or concerns as needed such as loss of bowel or bladder, or numbness and tingling to your genital area. All discharge instructions reviewed with patient and/or family. Voiced understanding. Scripts Prednisone (Prednisone) 20 Mg Tab 40 MG PO DAILY for 5 Days, #10 TAB Prov: AL SCOTT 04/09/18 Cyclobenzaprine HCl (Cyclobenzaprine HCl) 10 Mg Tablet 10 MG PO TID, #14 TAB Prov: AL SCOTT 04/09/18 AL SCOTT Apr 09, 2018 19:11
[2018-04-09 19:15] VITALS: BP 129/67
== END 2018-04-09 19:16 | disposition home or self-care (01) ==
LOC: EDUNIT# 17:39 → ER 17:40
DX: S39.012A Strain of muscle, fascia and tendon of lower back, initial encounter (principal); F32.9 Major depressive disorder, single episode, unspecified; F17.210 Nicotine dependence, cigarettes, uncomplicated; Z87.440 Personal history of urinary (tract) infections; Z90.89 Acquired absence of other organs; X58.XXXA Exposure to other specified factors, initial encounter
CPT/HCPCS: 81000; 96372; 99284

== ENCOUNTER 2018-09-29 06:44 | Emergency (ER) | payer OTHER ==
[~2018-09-29] VITALS: Ht 154.9 cm; Wt 88.5 kg
[2018-09-29] MEDS ORDERED: ONDANSETRON 4 MG (ZOFRAN) ORAL DISSOLVE TAB SL ONE (07:45)
[2018-09-29] MEDS ORDERED: ONDA4TAB11 SL (08:35)
--- NOTE | 2018-09-29 08:36 | ED GI ---
General Chief Complaint: Abdominal/GI Problems Stated Complaint: THROWING UP Nursing Triage Note: pt presents to ed with complaints of smith since 1999 last night and one episode of vomiting this am when she was getting ready for work. Sepsis Screen: No Definite Risk Source of Information: Patient Exam Limitations: No Limitations History of Present Illness Date Seen by Provider: Sep 29, 2018 Time Seen by Provider: 07:05 Initial Comments This 22-year-old young lady presents to the emergency room with an episode of vomiting this morning. She was still little nauseous now. She had headache last night and again this morning. She denies any other symptoms. She has no diarrhea and no abdominal pain. She denies as she has not had intercourse since her last period 2 weeks ago. Allergies and Home Medications Allergies Coded Allergies: No Known Drug Allergies (Unverified , 07/06/17) Home Medications Ondansetron 4 Mg Tab.rapdis, 4 MG SL Q4H PRN for NAUSEA/VOMITING Prescribed by: JUAN LUIS CHONG on 09/29/18 0835 Patient Home Medication List Home Medication List Reviewed: Yes Review of Systems Review of Systems Constitutional: no symptoms reported EENTM: No Symptoms Reported Respiratory: No Symptoms Reported Cardiovascular: No Symptoms Reported Gastrointestinal: See HPI Genitourinary: No Symptoms Reported Musculoskeletal: no symptoms reported Skin: no symptoms reported Psychiatric/Neurological: No Symptoms Reported Endocrine: No Symptoms Reported Hematologic/Lymphatic: No Symptoms Reported Past Upfqpvk-Gjxyvj-Bgjopy Hx Past Med/Social Hx: Reviewed and Corrections made Patient Social History Alcohol Use: Denies Use Recreational Drug Use: No Smoking Status: Current Everyday Smoker Type Used: Cigarettes Recent Foreign Travel: No Contact w/Someone Who Travel: No Recent Infectious Disease Expo: No Recent Hopitalizations: No Physical Abuse: No Sexual Abuse: No Mistreated: No Fear: No Past Medical History Surgeries: Yes Adenoidectomy, Tonsillectomy Respiratory: No Cardiac: No Neurological: No : No Last Menstrual Period: Sep 15, 2018 Genitourinary: Yes UTI-Chronic Gastrointestinal: No Musculoskeletal: No Endocrine: No HEENT: No Cancer: No Psychosocial: Yes Depression Integumentary: No Blood Disorders: No Family Medical History No Pertinent Family Hx Physical Exam Vital Signs Vital Signs - First Documented 09/29/18 07:12 Temp 97.1 Pulse 78 Resp 20 B/P (MAP) 145/103 (117) Pulse Ox 98 Capillary Refill : Less Than 3 Seconds Height/Weight/BMI Height: 5'1.00" Weight: 195lbs. oz. 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, no motor/sensory deficits, alert, normal mood/affect, oriented x 3 Skin: normal color, warm/dry Progress/Results/Core Measures Results/Orders My Orders Orders - JUAN LUIS MENDOSA MD Urine Bedside (09/29/18 07:11) Ondansetron Oral Dissolve Tab (Zofran (09/29/18 07:45) Medications Given in ED Current Medications Medications Dose Ordered Sig/Johanna Route Start Time Stop Time Status Last Admin Dose Admin Ondansetron HCl 8 mg ONCE ONCE SL 09/29/18 07:45 09/29/18 07:46 DC 09/29/18 07:49 8 MG Vital Signs/I&O 09/29/18 07:12 Temp 97.1 Pulse 78 Resp 20 B/P (MAP) 145/103 (117) Pulse Ox 98 Blood Pressure Mean: 117 Progress Progress Note : Progress Note Urine test was negative. Patient was given sublingual Zofran. She was able to tolerate oral water. She was dismissed with a work note and a Zofran prescription. Departure Impression Primary Impression: Nausea and vomiting Qualified Codes: R11.2 - Nausea with vomiting, unspecified Disposition: 01 HOME, SELF-CARE Condition: Improved Departure-Patient Inst. Decision time for Depature: 08:25 Referrals: [facility] (PCP/Family) Primary Care Physician Patient Instructions: Nausea and Vomiting, Adult Add. Discharge Instructions: Drink plenty of clear liquids. Gradually advance your diet with small quantities of bland food as tolerated. Use the Zofran (ondansetron) dissolved under the tongue every 4 hours as needed for nausea and vomiting. Return to care as needed if symptoms worsen or do not improve. All discharge instructions reviewed with patient and/or family. Voiced understanding. Scripts Ondansetron (Ondansetron Odt) 4 Mg Tab.rapdis 4 MG SL Q4H PRN for NAUSEA/VOMITING, #10 TAB Prov: JUAN LUIS MENDOSA MD 09/29/18 Work/School Note: Work Release Form Date Seen in the Emergency Department: Sep 29, 2018 Return to Work: Sep 30, 2018 Restrictions: Return-No Fever (24hrs), Return-No Vomiting(24hrs) JUAN LUIS MENDOSA MD Sep 29, 2018 08:36
[2018-09-29 08:41] VITALS: BP 126/75
== END 2018-09-29 08:41 | disposition home or self-care (01) ==
LOC: EDUNIT# 06:44 → ER 06:46
DX: R11.2 Nausea with vomiting, unspecified (principal); F32.9 Major depressive disorder, single episode, unspecified; F17.210 Nicotine dependence, cigarettes, uncomplicated; Z90.89 Acquired absence of other organs; Z87.440 Personal history of urinary (tract) infections
CPT/HCPCS: 84703; 99283

== ENCOUNTER 2018-10-12 19:43 | Emergency (ER) | payer OTHER ==
[~2018-10-12] VITALS: Ht 154.9 cm; Wt 99.8 kg
[~2018-10-12 19:43] MED LIST changes: +ONDA4TAB11 SL
--- OUTSIDE RECORDS SUMMARY | 2018-10-12 19:55 | XMS REPORT ---
Author Author Migration, Doctor Organization [facility] Address Unknown Phone Unavailable Care Team Providers Care Water Treatment Specialist Name Role Phone Migration, Doctor Unavailable Unavailable PROBLEMS Type Condition ICD9-CM Code [id number] Code Onset Dates Condition Status SNOMED Code Problem Encounter for initial prescription of other contraceptives Z30.018 Active 520536335 Problem Irregular menstruation, unspecified N92.6 Active 84894567 Problem control counseling Z30.9 Active 97111895 Problem History of unprotected sex Z72.51 Active 4068590 Problem Encounter for gynecological examination Z01.419 Active 550189936 Problem Moderate episode of recurrent major depressive disorder F33.1 Active 011379966 Problem Routine health maintenance Z00.00 Active 990306615 Problem High-risk sexual behavior Z72.51 Active 640054334 Problem Restless legs G25.81 Active 09298677 Problem Dysuria R30.0 Active 99879133 Problem Abnormal uterine bleeding (AUB) N93.9 Active 90963438877933 Problem Major depressive disorder, recurrent episode, moderate F33.1 Active 620415018 Problem Missed period N92.6 Active 05016906 Problem Obesity (BMI 30-39.9) E66.9 Active 107845253 Problem Anxiety F41.9 Active 86746221 Problem Other chest pain R07.89 Active 27543474 Problem Screen for STD (sexually transmitted disease) Z11.3 Active 132173613 Problem 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 Active 96347363 ALLERGIES No Information ENCOUNTERS Encounter Location Date Diagnosis [facility] [address] [facility] [id number] [address] Jul, [facility] [address] [id number] [address] Jul, Irregular menstruation, unspecified N92.6 ; BMI 40.0-44.9, adult Z68.41 and Female hirsutism L68.0 [facility] [id number] [place] [address] 17 Mar, 2017 control counseling Z30.9 ; Encounter for initial prescription of transdermal patch hormonal contraceptive device Z30.016 and Routine screening for STI (sexually transmitted infection) Z11.3 [facility] [place] [id number] [place] [address] 16 Feb, 2017 [facility] IN [address] [address] 12 Feb, 2017 Abnormal uterine bleeding (AUB) N93.9 and Candidiasis of female genitalia B37.[address] [address] 12 Feb, 2017 [facility] IN [address] [address] 14 Dec, 2016 Dysuria R30.0 and Acute cystitis with hematuria N30.[address] [address] Dec, Anxiety F41.9 ; Major depressive disorder, recurrent episode , moderate F33.1 and 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 [place] [id number] [place] [address] Dec, Anxiety F41.9 ; Major depressive disorder, recurrent episode , moderate F33.1 and 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 [place] [id number] [place] [address] Dec, Anxiety F41.9 ; Major depressive disorder, recurrent episode , moderate F33.1 and 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 [place] [id number] [place] [address] Nov, Anxiety F41.9 ; Major depressive disorder, recurrent episode , moderate F33.1 and 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 [facility] WALK IN [address] [address] Nov, Irritant contact dermatitis due to other agents L24.89 and Chigger bites B88.0 [place] [id number] [place] [address] October, Nail, ingrown L60.0 [facility] [place] [id number] [place] [address] Sep, Nail, ingrown L60.0 and Infected nail bed of toe L03.039 [facility] [place] [id number] [place] [address] Aug, Encounter for Depo-Provera contraception Z30.42 [facility] W[facility] IN [address] [address] Jun, Encounter for Depo-Provera contraception Z30.42 [place] [id number] [place] [address] Mar, Anxiety F41.9 ; Encounter for Depo-Provera contraception Z30.42 ; Major depressive disorder, recurrent episode, moderate F33.1 and control counseling Z30.9 [place] [id number] [place] [address] Feb, control counseling Z30.9 ; Irregular menstruation, unspecified N92.6 ; Other chest pain R07.89 ; Anxiety F41.9 and Screen for STD ( sexually transmitted disease) Z11.3 [place] [address] [id number] [place] [address] Jan, [place] [address] [id number] [place] [address] Jan, [address] [address] Jan, Moderate episode of recurrent major depressive disorder F33.1 ; Obesity (BMI 30-39.9) E66.9 ; High-risk sexual behavior Z72.51 ; Dysuria R30.0 and Restless legs G25.81 [id number] [address] 23 Nov, 2015 Major depressive disorder, recurrent episode, moderate F33.1 [place] [id number] [place] [address] 16 Nov, 2015 Moderate episode of recurrent major depressive disorder F33.1 and Obesity (BMI 30-39.9) E66.9 [place] [id number] [place] [address] Nov, [place] [id number] [place] [address] 07 Nov, 2015 Obesity (BMI 30-39.9) E66.9 [place] [id number] [place] [address] October, Major depressive disorder, recurrent episode, moderate F33.1 [place] [id number] [place] [address] October, Routine health maintenance Z00.00 ; Insulin resistance E88.81 ; Obesity (BMI 30-39.9) E66.9 and Moderate episode of recurrent major depressive disorder F33.1 [place] [address] [place] [address] October, Encounter for gynecological examination Z01.419 ; Irregular menstruation, unspecified N92.6 ; History of unprotected sex Z72.51 ; control counseling Z30.9 and Encounter for initial prescription of other contraceptives Z30.018 [place] [address] [place] [address] Jul, Encounter for test Z32.00 [place] [id number] [place] [address] October, Angioma serpiginosum of skin [address] [place] [address] [facility] [id number] [id number] October, Major depression, recurrent 296.30 and No condition on [place] II V71.09 [place] [address] [facility] [id number] [place] [address] October, Angioma serpiginosum of skin 448.1 [facility] [address] [facility] [id number] [place] [address] 14 Sep, 2014 [facility] [address] [facility] [id number] [place] [address] Sep, [facility] [address] [facility] [id number] [place] [address] Aug, [facility] [address] [facility] [id number] [place] [address] Aug, [facility] [address] [facility] [id number] [place] [address] Jul, [facility] [address] [facility] [id number] [place] [address] Jul, [facility] [id number] [place] [address] Mar, [facility] [address] [facility] [id number] [address] Mar, [facility] [address] [address] Dec, [facility] [address] [facility] [id number] [id number] Nov, [facility] [address] [facility] [id number] [id number] Nov, [facility] [address] [facility] [id number] [place] [address] October, [facility] [address] [facility] [id number] [place] [address] October, [facility] [address] [facility] [id number] [place] [address] October, [facility] [address] [address] October, [facility] [place] [facility] [address] [id number] [place] [address] October, [facility] [place] [facility] [address] [id number] [place] [address] Sep, [facility] [place] [facility] [address] [id number] [place] [address] Sep, [facility] [place] [facility] [address] [id number] [place] [address] Sep, [facility] [address] [id number] [place] [id number] Aug, [facility] [address] [id number] [place] [address] Aug, [facility] [place] [facility] [address] [id number] [place] [address] Jul, [facility] [place] [facility] [address] [id number] [address] Mar, [facility] [place] [facility] [address] [id number] [place] [address] Dec, [facility] [place] [facility] [address] [id number] [place] [address] Nov, [facility] [place] [facility] [address] [id number] [address] Nov, [facility] [place] [facility] [address] [id number] [place] [address] Nov, [facility] [place] [facility] [address] [id number] [place] [address] Nov, [facility] [place] [facility] [address] [id number] [place] [address] Nov, [facility] [place] [facility] [address] [id number] [place] [address] Nov, [facility] [place] [facility] [address] [facility] [id number] [place] [address] Nov, [facility] [address] [id number] [place] [address] October, [facility] [address] [facility] [id number] [place] [address] October, [facility] [address] [facility] [id number] [place] [address] October, [facility] [address] [id number] [place] [address] October, [facility] [address] [id number] [place] [address] October, [facility] [address] [facility] [id number] [place] [address] October, [facility] [address] [facility] [id number] [place] [address] October, [facility] [address] [facility] [id number] [place] [address] Sep, [facility] [address] [facility] [id number] [place] [address] Aug, [facility] [address] [facility] [id number] [place] [address] Aug, [facility] [address] [facility] [id number] [place] [address] Aug, [facility] [address] [facility] [id number] [place] [address] Aug, [facility] [address] [facility] [id number] [place] [address] May, [facility] [address] [facility] [id number] [place] [address] May, [facility] [address] [facility] [id number] [place] [address] May, IMMUNIZATIONS No Known Immunizations SOCIAL HISTORY Never Assessed REAS[facility] FOR VISIT [facility] [place] VITAL SIGNS MEDICATIONS Medication Instructions Dosage Frequency Start Date End Date Duration Status Efudex 5 % 1 lisa by Topical route 2 times per day for 30 day(s)use for 3-5 weeks Aug, Active Ortho Evra 150-20 mcg/24 hr 1 PATCH by Transdermal route 1 time per week Aug, Active Xulane 150-35 mcg/24 hr apply 1 patch by transdermal route once weekly Aug, Active Cipro 500 mg 1 Tablet by Po route 2 times per day take with food Aug Active Acyclovir 400 mg take 1 tablet (400 mg) by oral route 2 times per day Aug, Active Betamethasone Valerate 0.1 % 1 lisa by Topical route 2 times per day Disp: 45g Aug, Active Bactrim DS 800-160 mg 1 tablet by Oral route 2 times per day for 10 day(s) Aug, Active RESULTS No Results PROCEDURES No Known procedures INSTRUCTIONS MEDICATIONS ADMINISTERED No Known Medications MEDICAL (GENERAL) HISTORY Type Description Date Medical History Irregular menstrual cycle Medical History Depressive disorder, not elsewhere classified Medical History Obesity, unspecified Medical History Frequent UTIs Surgical History tonsillectomy and adenoidectomy 2001 Hospitalization History Surgery(s) only 2001 Hospitalization History [facility] 2012
--- OUTSIDE RECORDS SUMMARY | 2018-10-12 19:55 | XMS REPORT ---
Author Author Migration, Doctor Organization [facility] Address Unknown Phone Unavailable Care Team Providers Care Electronics Instructor Name Role Phone Migration, Doctor Unavailable Unavailable PROBLEMS Type Condition ICD9-CM Code TLC88-EN Code Onset Dates Condition Status SNOMED Code Problem Encounter for initial prescription of other contraceptives Z30.018 Active 132700869 Problem Irregular menstruation, unspecified N92.6 Active 79656376 Problem control counseling Z30.9 Active 30097846 Problem History of unprotected sex Z72.51 Active 7141881 Problem Encounter for gynecological examination Z01.419 Active 905645118 Problem Moderate episode of recurrent major depressive disorder F33.1 Active 431639809 Problem Routine health maintenance Z00.00 Active 069149694 Problem High-risk sexual behavior Z72.51 Active 822955998 Problem Restless legs G25.81 Active 78817383 Problem Dysuria R30.0 Active 65049765 Problem Abnormal uterine bleeding (AUB) N93.9 Active [id number] Problem Major depressive disorder, recurrent episode, moderate F33.1 Active 667062061 Problem Missed period N92.6 Active 24782913 Problem Obesity (BMI 30-39.9) E66.9 Active 904045391 Problem Anxiety F41.9 Active 43459286 Problem Other chest pain R07.89 Active 64748381 Problem Screen for STD (sexually transmitted disease) Z11.3 Active 370568319 Problem 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 Active 12152631 ALLERGIES No Information ENCOUNTERS Encounter Location Date Diagnosis [facility] [address] [facility] [id number] [address] Jul, [facility] [address] [id number] [address] Jul, Irregular menstruation, unspecified N92.6 ; BMI 40.0-44.9, adult Z68.41 and Female hirsutism L68.0 [facility] [id number] [place] [address] 17 Mar, 2017 control counseling Z30.9 ; Encounter for initial prescription of transdermal patch hormonal contraceptive device Z30.016 and Routine screening for STI (sexually transmitted infection) Z11.3 [facility] [place] [id number] [place] [address] 16 Feb, 2017 [facility] [address] [address] 12 Feb, 2017 Abnormal uterine bleeding (AUB) N93.9 and Candidiasis of female genitalia B37.[address] [address] 12 Feb, 2017 [facility] [address] [address] 14 Dec, 2016 Dysuria R30.0 and Acute cystitis with hematuria N30.[address] [address] Dec, Anxiety F41.9 ; Major depressive disorder, recurrent episode , moderate F33.1 and 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 [place] [id number] [place] [address] Dec, Anxiety F41.9 ; Major depressive disorder, recurrent episode , moderate F33.1 and 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 [place] [id number] [place] [address] Dec, Anxiety F41.9 ; Major depressive disorder, recurrent episode , moderate F33.1 and 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 [place] [id number] [place] [address] Nov, Anxiety F41.9 ; Major depressive disorder, recurrent episode , moderate F33.1 and 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 [facility] [address] [address] Nov, Irritant contact dermatitis due to other agents L24.89 and Chigger bites B88.0 [place] [id number] [place] [address] October, Nail, ingrown L60.0 [facility] [place] [id number] [place] [address] Sep, Nail, ingrown L60.0 and Infected nail bed of toe L03.039 [facility] [place] [id number] [place] [address] Aug, Encounter for Depo-Provera contraception Z30.42 [facility] [address] [address] Jun, Encounter for Depo-Provera contraception Z30.42 [place] [id number] [place] [address] Mar, Anxiety F41.9 ; Encounter for Depo-Provera contraception Z30.42 ; Major depressive disorder, recurrent episode, moderate F33.1 and control counseling Z30.9 [place] [id number] [place] [address] Feb, control counseling Z30.9 ; Irregular menstruation, unspecified N92.6 ; Other chest pain R07.89 ; Anxiety F41.9 and Screen for STD ( sexually transmitted disease) Z11.3 [place] [id number] [place] [address] Jan, [place] [id number] [place] [address]- [address] Jan, [address] [address] Jan, Moderate episode of recurrent major depressive disorder F33.1 ; Obesity (BMI 30-39.9) E66.9 ; High-risk sexual behavior Z72.51 ; Dysuria R30.0 and Restless legs G25.81 [address] [id number] [address] 23 Nov, 2015 Major depressive disorder, recurrent episode, moderate F33.1 [place] [id number] [place] [address]- [address] 16 Nov, 2015 Moderate episode of recurrent major depressive disorder F33.1 and Obesity (BMI 30-39.9) E66.9 [place] [id number] [place] [address]- [address] Nov, [place] [id number] [place] [address]- [address] 07 Nov, 2015 Obesity (BMI 30-39.9) E66.9 [place] [id number] [place] [address]20- 0683 October, Major depressive disorder, recurrent episode, moderate F33.1 [place] [id number] [place] [address] October, Routine health maintenance Z00.00 ; Insulin resistance E88.81 ; Obesity (BMI 30-39.9) E66.9 and Moderate episode of recurrent major depressive disorder F33.1 [place] [address] [place] [address] 9[address] October, Encounter for gynecological examination Z01.419 ; Irregular menstruation, unspecified N92.6 ; History of unprotected sex Z72.51 ; control counseling Z30.9 and Encounter for initial prescription of other contraceptives Z30.018 [place] [address] [place] [address] 12[address] 86[address] Jul, Encounter for test Z32.00 [place] [id number] [place] [address] October, Angioma serpiginosum of skin 448.[address] [place] [address] [address] [facility] [address] [id number] [id number] October, Major depression, recurrent 296.30 and No condition on [place] II V71.09 [place] [address] [facility] [id number] [place] [address] October, Angioma serpiginosum of skin 448.1 [facility] [address] [facility] [id number] [place] [address] 14 Sep, 2014 [facility] [address] [facility] [id number] [place] [address] Sep, [facility] [address] [facility] [id number] [place] [address] Aug, [facility] [address] [facility] [id number] [place] [address] Aug, [facility] [address] [facility] [id number] [place] [address] Jul, [facility] [address] [facility] [id number] [place] [address] Jul, [facility] [id number] [place] [address] Mar, [facility] [address] [facility] [id number] [place] [address] Mar, [facility] [address] [address] Dec, [facility] [address] [facility] [id number] [id number] Nov, [facility] [address] [facility] [id number][place] [id number] Nov, [facility] [address] [facility] [id number] [place] [address] October, [facility] [address] [facility] [id number] [place] [address] October, [facility] [address] [facility] [id number] [place] [address] October, [facility] [address] [address] October, [facility] [place] [facility] [address] [id number] [place] [address]- 0[address] October, [facility] [place] [facility] [address] [id number] [place] [address]- 0[address] Sep, [facility] [place] [facility] [address] [id number] [place] [address]- 1646 Sep, [facility] [place] [facility] [address] [id number] [place] [address] 8[address] Sep, [facility] [address] [id number] [place] [id number] Aug, [facility] [address] [id number] [place] [address] Aug, [facility] [place] [facility] [address] [id number] [place] [address]- [address] Jul, [facility] [place] [facility] [address] [id number] [place] [address] Mar, [facility] [place] [facility] [address] [id number] [place] [address]- 7648 Dec, [facility] [place] [facility] [address] [id number] [place] [address]- 2407 Nov, [facility] [place] [facility] [address] [id number] [place] [address]- [address] Nov, [facility] [place] [facility] [address] [id number] [place] [address]- [address] Nov, [facility] [place] [facility] [address] [id number] [place] [address]- [address] Nov, [facility] [place] [facility] [address] [id number] [place] [address]- [address] Nov, [facility] [place] [facility] [address] [id number] [place] [address]- [address]647 Nov, [facility] [place] [facility] [address] [facility] [id number] [place] [address]46 Nov, [facility] [address] [id number] [place] [address]- 49[address] October, [facility] [address] [facility] [id number] [place] [address]- 118[address] October, [facility] [address] [facility] [id number] [place] [address] 2546 October, [facility] [address] [id number] [place] [address] 2546 October, [facility] [address] [id number] [place] [address]- 89[address] October, [facility] [address] [facility] [id number] [place] [address]- 2546 October, [facility] [address] [facility] [id number] [place] [address]- 36[address] October, [facility] [address] [facility] [id number] [place] [address]- 4[address] Sep, [facility] [address] [facility] [id number] [place] [address]- 7[address] Aug, [facility] [address] [facility] [id number] [place] [address]- 7098 Aug, [facility] [address] [facility] [id number] [place] [address]- [address] Aug, [facility] [address] [facility] [id number] [place] [address]- 2546 Aug, [facility] [address] [facility] [id number] [place] [address] 2546 May, [facility] [address] [facility] [id number] [place] [address]- 2546 May, [facility] [address] [facility] [id number] [place] [address]- 2856 May, IMMUNIZATIONS No Known Immunizations SOCIAL HISTORY Never Assessed REASON FOR VISIT EMR-[facility] PLAN OF CARE VITAL SIGNS MEDICATIONS Unknown Medications RESULTS No Results PROCEDURES No Known procedures INSTRUCTIONS MEDICATIONS ADMINISTERED No Known Medications MEDICAL (GENERAL) HISTORY Type Description Date Medical History Irregular menstrual cycle Medical History Depressive disorder, not elsewhere classified Medical History Obesity, unspecified Medical History Frequent UTIs Surgical History tonsillectomy and adenoidectomy 2001 Hospitalization History Surgery(s) only 2001 Hospitalization History [facility] 2012
--- OUTSIDE RECORDS SUMMARY | 2018-10-12 19:56 | XMS REPORT ---
Author Author Migration, Doctor Organization [facility] Address Unknown Phone Unavailable Care Team Providers Care Dextrine Mixer Name Role Phone Migration, Doctor Unavailable Unavailable PROBLEMS Type Condition ICD9-CM Code CQQ44-MI Code Onset Dates Condition Status SNOMED Code Problem Encounter for initial prescription of other contraceptives Z30.018 Active 853712754 Problem Irregular menstruation, unspecified N92.6 Active 20328418 Problem control counseling Z30.9 Active 72500412 Problem History of unprotected sex Z72.51 Active 8314962 Problem Encounter for gynecological examination Z01.419 Active 013454073 Problem Moderate episode of recurrent major depressive disorder F33.1 Active 135212231 Problem Routine health maintenance Z00.00 Active 583245578 Problem High-risk sexual behavior Z72.51 Active 535101139 Problem Restless legs G25.81 Active 81925825 Problem Dysuria R30.0 Active 78048303 Problem Abnormal uterine bleeding (AUB) N93.9 Active 66093850175225 Problem Major depressive disorder, recurrent episode, moderate F33.1 Active 963998649 Problem Missed period N92.6 Active 38341954 Problem Obesity (BMI 30-39.9) E66.9 Active 886132266 Problem Anxiety F41.9 Active 05431703 Problem Other chest pain R07.89 Active 70393200 Problem Screen for STD (sexually transmitted disease) Z11.3 Active 474971024 Problem 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 Active 70179281 ALLERGIES No Information ENCOUNTERS Encounter Location Date Diagnosis [facility] [address] [facility] [id number] [address] Jul, [facility] [address] [id number] [address] Jul, Irregular menstruation, unspecified N92.6 ; BMI 40.0-44.9, adult Z68.41 and Female hirsutism L68.0 [facility] [id number] [place] [address] 17 Mar, 2017 control counseling Z30.9 ; Encounter for initial prescription of transdermal patch hormonal contraceptive device Z30.016 and Routine screening for STI (sexually transmitted infection) Z11.3 [facility] [place] [id number] [place] [address] 16 Feb, 2017 [facility] [address] [address] 12 Feb, 2017 Abnormal uterine bleeding (AUB) N93.9 and Candidiasis of female genitalia B37.[address] [address] 12 Feb, 2017 [facility] [address] [address] 14 Dec, 2016 Dysuria R30.0 and Acute cystitis with hematuria N30.[address] [address] Dec, Anxiety F41.9 ; Major depressive disorder, recurrent episode , moderate F33.1 and 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 [place] [id number] [place] [address] Dec, Anxiety F41.9 ; Major depressive disorder, recurrent episode , moderate F33.1 and 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 [place] [id number] [place] [address] Dec, Anxiety F41.9 ; Major depressive disorder, recurrent episode , moderate F33.1 and 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 [place] [id number] [place] [address] Nov, Anxiety F41.9 ; Major depressive disorder, recurrent episode , moderate F33.1 and 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 [facility] [address] [address] Nov, Irritant contact dermatitis due to other agents L24.89 and Chigger bites B88.0 [place] [id number] [place] [address] October, Nail, ingrown L60.0 [facility] [place] [id number] [place] [address] Sep, Nail, ingrown L60.0 and Infected nail bed of toe L03.039 [facility] [place] [id number] [place] [address] Aug, Encounter for Depo-Provera contraception Z30.42 [facility] [address] [address] Jun, Encounter for Depo-Provera contraception Z30.42 [place] [id number] [place] [address] Mar, Anxiety F41.9 ; Encounter for Depo-Provera contraception Z30.42 ; Major depressive disorder, recurrent episode, moderate F33.1 and control counseling Z30.9 [place] [id number] [place] [address] Feb, control counseling Z30.9 ; Irregular menstruation, unspecified N92.6 ; Other chest pain R07.89 ; Anxiety F41.9 and Screen for STD ( sexually transmitted disease) Z11.3 [place] [id number] [place] [address]186[address] Jan, [place] [id number] [place] [address] 4232 Jan, [address] [address] Jan, Moderate episode of recurrent major depressive disorder F33.1 ; Obesity (BMI 30-39.9) E66.9 ; High-risk sexual behavior Z72.51 ; Dysuria R30.0 and Restless legs G25.81 [id number] [address] 23 Nov, 2015 Major depressive disorder, recurrent episode, moderate F33.1 [place] [id number] [place] [address] 16 Nov, 2015 Moderate episode of recurrent major depressive disorder F33.1 and Obesity (BMI 30-39.9) E66.9 [place] [id number] [place] [address]88- [address]77 Nov, [place] [id number] [place] [address]047- [address] 07 Nov, 2015 Obesity (BMI 30-39.9) E66.9 [place] [id number] [place] [address]136- [address] October, Major depressive disorder, recurrent episode, moderate F33.1 [place] [id number] [place] [address] October, Routine health maintenance Z00.00 ; Insulin resistance E88.81 ; Obesity (BMI 30-39.9) E66.9 and Moderate episode of recurrent major depressive disorder F33.1 [place] [address] [place] [address]56[address]261 October, Encounter for gynecological examination Z01.419 ; Irregular menstruation, unspecified N92.6 ; History of unprotected sex Z72.51 ; control counseling Z30.9 and Encounter for initial prescription of other contraceptives Z30.018 [place] [address] [place] [address] Jul, Encounter for test Z32.00 [place] [id number] [place] [address] October, Angioma serpiginosum of skin 448.[address] [place] [address] [facility] [address] [id number] [id number] October, Major depression, recurrent 296.30 and No condition on [place] V71.09 [place] [address] [facility] [id number] [place] [address] October, Angioma serpiginosum of skin 448.1 [facility] [address] [facility] [id number] [place] [address] 14 Sep, 2014 [facility] [address] [facility] [id number] [place] [address] Sep, [facility] [address] [facility] [id number] [place] [address] Aug, [facility] [address] [facility] [id number] [place] [address] Aug, [facility] [address] [facility] [id number] [place] [address] Jul, [facility] [address] [facility] [id number] [place] [address] Jul, [facility] [id number] [place] [address] Mar, [facility] [address] [facility] [id number] [address] Mar, [facility] [address] [address] Dec, [facility] [address] [facility] [id number] [id number] Nov, [facility] [address] [facility] [id number] [id number] Nov, [facility] [address] [facility] [id number] [address] October, [facility] [address] [facility] [id number] [place] [address] October, [facility] [address] [facility] [id number] [address] October, [facility] [address] [address] October, [facility] [place] [facility] [address] [id number] [place] [address]- 5[address] October, [facility] [place] [facility] [address] [id number] [place] [address]- [address] Sep, [facility] [place] [facility] [address] [id number] [place] [address]- 8256 Sep, [facility] [place] [facility] [address] [id number] [place] [address]- 3936 Sep, [facility] [address] [id number] [place] [id number] Aug, [facility] [address] [id number] [place] [address]- 9106 Aug, [facility] [place] [facility] [address] [id number] [place] [address]- 5066 Jul, [facility] [place] [facility] [address] [id number] [address] 1108 Mar, [facility] [place] [facility] [address] [id number] [place] [address]- 3999 Dec, [facility] [place] [facility] [address] [id number] [place] [address]- 5662 Nov, [facility] [place] [facility] [address] [id number] [place] [address]- [address]69 Nov, [facility] [place] [facility] [address] [id number] [place] [address]- 8447 Nov, [facility] [place] [facility] [address] [id number] [place] [address]- 3656 Nov, [facility] [place] [facility] [address] [id number] [place] [address]- 8446 Nov, [facility] [place] [facility] [address] [id number] [place] [address]- 9952 Nov, [facility] [place] [facility] [address] [facility] [id number] [place] [address] 2546 Nov, [facility] [address] [id number] [place] [address] 2936 October, [facility] [address] [facility] [id number] [place] [address]- 8[address] October, [facility] [address] [facility] [id number] [place] [address] 2546 October, [facility] [address] [id number] [place] [address] 2546 October, [facility] [address] [id number] [place] [address]- 0466 October, [facility] [address] [facility] [id number] [place] [address]- 2546 October, [facility] [address] [facility] [id number] [place] [address]- 9746 October, [facility] [address] [facility] [id number] [place] [address]- 3036 Sep, [facility] [address] [facility] [id number] [place] [address]- [address] Aug, [facility] [address] [facility] [id number] [place] [address]- 9491 Aug, [facility] [address] [facility] [id number] [place] [address]- 3270 Aug, [facility] [address] [facility] [id number] [place] [address]- 2546 Aug, [facility] [address] [facility] [id number] [place] [address] 2546 May, [facility] [address] [facility] [id number] [place] [address]- 2546 May, [facility] [address] [facility] [id number] [place] [address]- 8626 May, IMMUNIZATIONS No Known Immunizations SOCIAL HISTORY Never Assessed [place] [place] VITAL SIGNS MEDICATIONS Unknown Medications RESULTS No Results PROCEDURES No Known procedures INSTRUCTIONS MEDICATIONS ADMINISTERED No Known Medications MEDICAL (GENERAL) HISTORY Type Description Date Medical History Irregular menstrual cycle Medical History Depressive disorder, not elsewhere classified Medical History Obesity, unspecified Medical History Frequent UTIs Surgical History tonsillectomy and adenoidectomy 2001 Hospitalization History Surgery(s) only 2001 Hospitalization History [facility] 2012
--- OUTSIDE RECORDS SUMMARY | 2018-10-12 19:56 | XMS REPORT ---
Author Author Migration, Doctor Organization [facility] Address Unknown Phone Unavailable Care Team Providers Care Science Interpreter Name Role Phone Migration, Doctor Unavailable Unavailable PROBLEMS Type Condition ICD9-CM Code PBN32-JQ Code Onset Dates Condition Status SNOMED Code Problem Encounter for initial prescription of other contraceptives Z30.018 Active 714720529 Problem Irregular menstruation, unspecified N92.6 Active 22907777 Problem control counseling Z30.9 Active 75044484 Problem History of unprotected sex Z72.51 Active 4817773 Problem Encounter for gynecological examination Z01.419 Active 077125303 Problem Moderate episode of recurrent major depressive disorder F33.1 Active 026898139 Problem Routine health maintenance Z00.00 Active 076595071 Problem High-risk sexual behavior Z72.51 Active 692226966 Problem Restless legs G25.81 Active 93063865 Problem Dysuria R30.0 Active 96789231 Problem Abnormal uterine bleeding (AUB) N93.9 Active 08880720942730 Problem Major depressive disorder, recurrent episode, moderate F33.1 Active 504247873 Problem Missed period N92.6 Active 69826956 Problem Obesity (BMI 30-39.9) E66.9 Active 418206235 Problem Anxiety F41.9 Active 32180449 Problem Other chest pain R07.89 Active 19011508 Problem Screen for STD (sexually transmitted disease) Z11.3 Active 333931849 Problem 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 Active 98028803 ALLERGIES No Information ENCOUNTERS Encounter Location Date Diagnosis [facility] [address] [facility] [id number] [address] Jul, [facility] [address] [id number] [address] Jul, Irregular menstruation, unspecified N92.6 ; BMI 40.0-44.9, adult Z68.41 and Female hirsutism L68.0 [facility] [id number] [place] [address]999[address] 2103 17 Mar, 2017 control counseling Z30.9 ; Encounter for initial prescription of transdermal patch hormonal contraceptive device Z30.016 and Routine screening for STI (sexually transmitted infection) Z11.3 [facility] [place] [id number] [place] [address] 8[address]77 -[address]39 16 Feb, 2017 [facility] WALK IN [address] [address] 12 Feb, 2017 Abnormal uterine bleeding (AUB) N93.9 and Candidiasis of female genitalia B37.[address] [address] 12 Feb, 2017 [facility] W[facility] IN [address] [address] 14 Dec, 2016 Dysuria R30.0 and Acute cystitis with hematuria N30.[address] [address] Dec, Anxiety F41.9 ; Major depressive disorder, recurrent episode , moderate F33.1 and 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 [place] [id number] [place] [address] 52200- 6786 Dec, Anxiety F41.9 ; Major depressive disorder, recurrent episode , moderate F33.1 and 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 [place] [id number] [place] [address] 51156- 9610 Dec, Anxiety F41.9 ; Major depressive disorder, recurrent episode , moderate F33.1 and 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 [place] [id number] [place] [address] 87584- 3339 Nov, Anxiety F41.9 ; Major depressive disorder, recurrent episode , moderate F33.1 and 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 [facility] WALK IN [address] [address] Nov, Irritant contact dermatitis due to other agents L24.89 and Chigger bites B88.0 [place] [address] [id number] [place] [address] 10639- 3924 October, Nail, ingrown L60.0 [facility] [place] [id number] [place] [address] 97034 -2243 Sep, Nail, ingrown L60.0 and Infected nail bed of toe L03.039 [facility] [place] [id number] [place] [address] 74038 -4868 Aug, Encounter for Depo-Provera contraception Z30.42 [facility] WALK IN [address] 60[address]37[address] Jun, Encounter for Depo-Provera contraception Z30.42 [place] [id number] [place] [address] 19014- 3899 Mar, Anxiety F41.9 ; Encounter for Depo-Provera contraception Z30.42 ; Major depressive disorder, recurrent episode, moderate F33.1 and control counseling Z30.9 [place] [address] [id number] [place] [address] 66371- 1506 Feb, control counseling Z30.9 ; Irregular menstruation, unspecified N92.6 ; Other chest pain R07.89 ; Anxiety F41.9 and Screen for STD ( sexually transmitted disease) Z11.3 [place] [address] [id number] [place] [address] 39240- 8853 Jan, [place] [address] [place] [id number] [place] [address] 78712- 5145 Jan, [address] [address]- [address] Jan, Moderate episode of recurrent major depressive disorder F33.1 ; Obesity (BMI 30-39.9) E66.9 ; High-risk sexual behavior Z72.51 ; Dysuria R30.0 and Restless legs G25.81 [id number] [address] 23 Nov, 2015 Major depressive disorder, recurrent episode, moderate F33.1 [place] [address] [id number] [place] [address] 09063- 7023 16 Nov, 2015 Moderate episode of recurrent major depressive disorder F33.1 and Obesity (BMI 30-39.9) E66.9 [place] [id number] [place] [address] 02535- 2932 Nov, [place] [address] [id number] [place] [address] 44574- 9879 07 Nov, 2015 Obesity (BMI 30-39.9) E66.9 [place] [address] [place] [id number] [place] [address] 06101- 4686 October, Major depressive disorder, recurrent episode, moderate F33.1 [place] [address] [id number] [place] [address] 08479- 9678 October, Routine health maintenance Z00.00 ; Insulin resistance E88.81 ; Obesity (BMI 30-39.9) E66.9 and Moderate episode of recurrent major depressive disorder F33.1 [place] [address] [place] [address] 63202- 8800 October, Encounter for gynecological examination Z01.419 ; Irregular menstruation, unspecified N92.6 ; History of unprotected sex Z72.51 ; control counseling Z30.9 and Encounter for initial prescription of other contraceptives Z30.018 [place] [address] [place] [address] 54679- 9782 Jul, Encounter for test Z32.00 [place] [id number] [place] [address] 40653- 4738 October, Angioma serpiginosum of skin 448.[address] [place] [address] [facility] [address] [id number] [address] October, Major depression, recurrent 296.30 and No condition on [place] II V71.09 [place] [address] [facility] [id number] [place] [address] 92[address] October, Angioma serpiginosum of skin 448.1 [facility] [address] [facility] [id number] [place] [address]- [address]47 14 Sep, 2014 [facility] [address] [facility] [id number] [place] [address] 2026 Sep, [facility] [address] [facility] [id number] [place] [address]- 5761 Aug, [facility] [address] [facility] [id number] [place] [address]- 75[address] Aug, [facility] [address] [facility] [id number] [place] [address]- 6654 Jul, [facility] [address] [facility] [id number] [place] [address]- 3493 Jul, [facility] [address] [id number] [address] 5[address] Mar, [facility] [address] [facility] [id number], [place] [address] 1869 Mar, [facility] [address] [address] Dec, [facility] [address] [facility] [id number] [address] Nov, [facility] [address] [facility] [id number][place] [address] Nov, [facility] [address] [facility] [id number], [place] [address] 8876 October, [facility] [address] [facility] [id number] [place] [address]- 7096 October, [facility] [address] [facility] [id number], [place] [address] 9266 October, [facility] [address], [place] [address] 4036 October, [facility] [place] [facility] [address] [id number] [place] [address]- 1320 October, [facility] [place] [facility] [address] [id number] [place] [address]- 1396 Sep, [facility] [place] [facility] [address] [id number] [place] [address]- 5456 Sep, [facility] [place] [facility] [address] [id number] [place] [address]- 3646 Sep, [facility] [address] [id number] [place] [address] Aug, [facility] [address] [id number] [place] [address]- 0806 Aug, [facility] [place] [facility] [address] [id number] [place] [address]- 9786 Jul, [facility] [place] [facility] [address] [id number], [place] [address]- 0085 Mar, [facility] [place] [facility] [address] [id number] [place] [address]- 0246 Dec, [facility] [place] [facility] [address] [id number] [place] [address]- 6523 Nov, [facility] [place] [facility] [address] [id number], [place] [address]- 4361 Nov, [facility] [place] [facility] [address] [id number], [place] [address]- 3558 Nov, [facility] [place] [facility] [address] [id number] [place] [address]- 4244 Nov, [facility] [place] [facility] [address] [id number] [place] [address]- 8046 Nov, [facility] [place] [facility] [address] [id number] [place] [address]- 0452 Nov, [facility] [place] [facility] [address] [facility] [id number] [place] [address] 2546 Nov, [facility] [address] [id number] [place] [address]- 3996 October, [facility] [address] [facility] [id number] [place] [address]- 9346 October, [facility] [address] [facility] [id number] [place] [address] 2546 October, [facility] [address] [id number] [place] [address] 2546 October, [facility] [address] [id number] [place] [address]- 8126 October, [facility] [address] [facility] [id number] [place] [address]- 2546 October, [facility] [address] [facility] [id number] [place] [address]- 3006 October, [facility] [address] [facility] [id number] [place] [address]- 6826 Sep, [facility] [address] [facility] [id number] [place] [address]- 2706 Aug, [facility] [address] [facility] [id number] [place] [address]- 5545 Aug, [facility] [address] [facility] [id number] [place] [address]- 5143 Aug, [facility] [address] [facility] [id number] [place] [address]- 2546 Aug, [facility] [address] [facility] [id number] [place] [address] 2546 May, [facility] [address] [facility] [id number] [place] [address]- 2546 May, [facility] [address] [facility] [id number] [place] [address]- 9336 May, IMMUNIZATIONS No Known Immunizations SOCIAL HISTORY Never Assessed REASON FOR VISIT EMR-[facility] [place]AN OF CARE VITAL [...] 2001 Hospitalization History [facility] 2012
--- OUTSIDE RECORDS SUMMARY | 2018-10-12 19:56 | XMS REPORT ---
Author Author Migration, Doctor Organization [facility] Address Unknown Phone Unavailable Care Team Providers Care Oracle Erp Developer Name Role Phone Migration, Doctor Unavailable Unavailable PROBLEMS Type Condition ICD9-CM Code [id number] Code Onset Dates Condition Status SNOMED Code Problem Encounter for initial prescription of other contraceptives Z30.018 Active 805807171 Problem Irregular menstruation, unspecified N92.6 Active 91036317 Problem control counseling Z30.9 Active 81521137 Problem History of unprotected sex Z72.51 Active 7097482 Problem Encounter for gynecological examination Z01.419 Active 630366060 Problem Moderate episode of recurrent major depressive disorder F33.1 Active 958242015 Problem Routine health maintenance Z00.00 Active 862971238 Problem High-risk sexual behavior Z72.51 Active 686009472 Problem Restless legs G25.81 Active 57707493 Problem Dysuria R30.0 Active 54772265 Problem Abnormal uterine bleeding (AUB) N93.9 Active 58408026864997 Problem Major depressive disorder, recurrent episode, moderate F33.1 Active 804760991 Problem Missed period N92.6 Active 14761172 Problem Obesity (BMI 30-39.9) E66.9 Active 332256370 Problem Anxiety F41.9 Active 97006121 Problem Other chest pain R07.89 Active 38957709 Problem Screen for STD (sexually transmitted disease) Z11.3 Active 902780734 Problem 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 Active 91816177 ALLERGIES No Information ENCOUNTERS Encounter Location Date Diagnosis [facility] [address] [facility] [id number], [place] [address] Jul, [facility] [address] [id number] [address] 1188 Jul, Irregular menstruation, unspecified N92.6 ; BMI 40.0-44.9, adult Z68.41 and Female hirsutism L68.0 [facility] [id number] [place] [address] 27252- 9269 17 Mar, 2017 control counseling Z30.9 ; Encounter for initial prescription of transdermal patch hormonal contraceptive device Z30.016 and Routine screening for STI (sexually transmitted infection) Z11.3 [facility] [place] [id number] [place] [address] 67727 -0456 16 Feb, 2017 [facility] WALK IN [address] [address] -[address] 12 Feb, 2017 Abnormal uterine bleeding (AUB) N93.9 and Candidiasis of female genitalia B37.[address] [address]- 2269 12 Feb, 2017 [facility] WALK IN [address] [address]77 -0901 14 Dec, 2016 Dysuria R30.0 and Acute cystitis with hematuria N30.[address] [address]- 0517 Dec, Anxiety F41.9 ; Major depressive disorder, recurrent episode , moderate F33.1 and 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 [place] [id number] [place] [address] 64366- 8785 Dec, Anxiety F41.9 ; Major depressive disorder, recurrent episode , moderate F33.1 and 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 [place] [id number] [place] [address] 42088- 2948 Dec, Anxiety F41.9 ; Major depressive disorder, recurrent episode , moderate F33.1 and 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 [place] [id number] [place] [address] 69627- 6535 Nov, Anxiety F41.9 ; Major depressive disorder, recurrent episode , moderate F33.1 and 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 [facility] WALK IN [address] 5[address]12 -1588 Nov, Irritant contact dermatitis due to other agents L24.89 and Chigger bites B88.0 [place] [address] [place] [address] [id number] [place] [address] 47606- 8335 October, Nail, ingrown L60.0 [facility] [place] [address] [place] [address] 41756 -8795 Sep, Nail, ingrown L60.0 and Infected nail bed of toe L03.039 [facility] [place] [address] [place] [address] 63998 -3668 Aug, Encounter for Depo-Provera contraception Z30.42 [facility] W[facility] IN [address] 66[address] -7163 Jun, Encounter for Depo-Provera contraception Z30.42 [place] [id number] [place] [address] 46161- 9121 Mar, Anxiety F41.9 ; Encounter for Depo-Provera contraception Z30.42 ; Major depressive disorder, recurrent episode, moderate F33.1 and control counseling Z30.9 [place] [address] [place] [id number] [place] [address] 12108- 4100 Feb, control counseling Z30.9 ; Irregular menstruation, unspecified N92.6 ; Other chest pain R07.89 ; Anxiety F41.9 and Screen for STD ( sexually transmitted disease) Z11.3 [place] [address] [place] [id number] [place] [address] 72986- 1571 Jan, [place] [address] [place] [id number] [place] [address] 80436- 2098 Jan, [address] [address]- 4113 Jan, Moderate episode of recurrent major depressive disorder F33.1 ; Obesity (BMI 30-39.9) E66.9 ; High-risk sexual behavior Z72.51 ; Dysuria R30.0 and Restless legs G25.81 [id number] [address]- 2814 23 Nov, 2015 Major depressive disorder, recurrent episode, moderate F33.1 [place] [address] [place] [id number] [place] [address] 45602- 7596 16 Nov, 2015 Moderate episode of recurrent major depressive disorder F33.1 and Obesity (BMI 30-39.9) E66.9 [place] [id number] [place] [address] 88595- 5538 Nov, [place] [address] [place] [id number] [place] [address] 39503- 0009 07 Nov, 2015 Obesity (BMI 30-39.9) E66.9 [place] [address] [place] [id number] [place] [address] 15093- 6348 October, Major depressive disorder, recurrent episode, moderate F33.1 [place] [address] [place] [id number] [place] [address] 07182- 2247 October, Routine health maintenance Z00.00 ; Insulin resistance E88.81 ; Obesity (BMI 30-39.9) E66.9 and Moderate episode of recurrent major depressive disorder F33.1 [place] [address] [place] [address] 51726- 4383 October, Encounter for gynecological examination Z01.419 ; Irregular menstruation, unspecified N92.6 ; History of unprotected sex Z72.51 ; control counseling Z30.9 and Encounter for initial prescription of other contraceptives Z30.018 [place] [address] [place] [address] 99369- 4982 Jul, Encounter for test Z32.00 [place] [id number] [place] [address] 64723- 2320 October, Angioma serpiginosum of skin [address] [place] [address] [facility] [id number] [place] [address] October, Major depression, recurrent 296.30 and No condition on [place] II V71.09 [place] [address] [facility] [id number] [place] [address]- 5230 October, Angioma serpiginosum of skin 448.1 [facility] [address] [facility] [id number] [place] [address]- 2426 14 Sep, 2014 [facility] [address] [facility] [id number] [place] [address]- 6328 Sep, [facility] [address] [facility] [id number] [place] [address]- 8025 Aug, [facility] [address] [facility] [id number] [place] [address]- 3270 Aug, [facility] [address] [facility] [id number] [place] [address]- 6556 Jul, [facility] [address] [facility] [id number] [place] [address]- 3594 Jul, [facility] [address] [id number] [place] [address]- 7362 Mar, [facility] [address] [facility] [id number], [place] [address]- 9528 Mar, [facility] [address], [place] [address]- 3278 Dec, [facility] [address] [facility] [id number] [place] [id number] Nov, [facility] [address] [facility] [id number] [place] [address] Nov, [facility] [address] [facility] [id number], [place] [address]- 3786 October, [facility] [address] [facility] [id number] [place] [address]- 2426 October, [facility] [address] [facility] [id number], [place] [address]- 6586 October, [facility] [address]65[address], [place] [address]- 2336 October, [facility] [place] [facility] [address] [id number] [place] [address]- 8424 October, [facility] [place] [facility] [address] [id number] [place] [address]- 4296 Sep, [facility] [place] [facility] [address] [id number] [place] [address]- 7346 Sep, [facility] [place] [facility] [address] [id number] [place] [address]- 7046 Sep, [facility] [address] [id number] [place] [id number] Aug, [facility] [address] [id number] [place] [address]- 1096 Aug, [facility] [place] [facility] [address] [id number] [place] [address]- 7936 Jul, [facility] [place] [facility] [address] [id number], [place] [address]- 8269 Mar, [facility] [place] [facility] [address] [id number] [place] [address]- 9514 Dec, [facility] [place] [facility] [address] [id number] [place] [address]- 4372 Nov, [facility] [place] [facility] [address] [id number], [place] [address]- 5697 Nov, [facility] [place] [facility] [address] [id number], [place] [address]- 2100 Nov, [facility] [place] [facility] [address] [id number] [place] [address]- 8569 Nov, [facility] [place] [facility] [address] [id number] [place] [address]- 8836 Nov, [facility] [place] [facility] [address] [id number] [place] [address]- 3970 Nov, [facility] [place] [facility] [address] [facility] [id number] [place] [address] 2546 Nov, [facility] [address] [id number] [place] [address]- 3996 October, [facility] [address] [facility] [id number] [place] [address]- 4356 October, [facility] [address] [facility] [id number] [place] [address] October, [facility] [address] [id number] [place] [address] October, [facility] [address] [id number] [place] [address] October, [facility] [address] [facility] [id number] [place] [address] October, [facility] [address] [facility] [id number] [place] [address] October, [facility] [address] [facility] [id number] [place] [address] Sep, [facility] [address] [facility] [id number] [place] [address] Aug, [facility] [address] [facility] [id number] [place] [address] Aug, [facility] [address] [facility] [id number] [place] [address] Aug, [facility] [address] [facility] [id number] [place] [address] Aug, [facility] [address] [facility] [id number] [place] [address] May, [facility] [address] [facility] [id number] [place] [address] May, [facility] [address] [facility] [id number] [place] [address] May, IMMUNIZATIONS No Known Immunizations SOCIAL HISTORY Never Assessed REASON FOR VISIT EMR-[facility] [place] PLAN OF CARE VITAL SIGNS MEDICATIONS Unknown Medications RESULTS No Results PROCEDURES No Known procedures INSTRUCTIONS MEDICATIONS ADMINISTERED No Known Medications MEDICAL (GENERAL) HISTORY Type Description Date Medical History Irregular menstrual cycle Medical History Depressive disorder, not elsewhere classified Medical History Obesity, unspecified Medical History Frequent UTIs Surgical History tonsillectomy and adenoidectomy 2001 Hospitalization History Surgery(s) only 2001 Hospitalization History [facility] 2012
--- OUTSIDE RECORDS SUMMARY | 2018-10-12 19:58 | XMS REPORT | Continuity of Care Document ---
Author Organization Unknown Address Unknown Allergies Active Description Code Type Severity Reaction Onset Reported/Identified Relationship to Patient Clinical Status Yes No Known Drug Allergies [id number] Drug Allergy Unknown N/A 07/06/2017 Medications There is no data. Problems Date Dx Coded Attending Type Code Diagnosis Diagnosed By 05/27/2011 078.12 PLANTAR WART 05/27/2011 477.9 ALLERGIC RHINITIS CAUSE UNSPECIFIED 05/27/2011 599.0 URINARY TRACT INFECTION 05/27/2011 V20.2 WELL CHILD 05/27/2011 EATON BAG MACHINE TENDER, PATTI L 078.12 PLANTAR WART 05/27/2011 EATON BAG MACHINE TENDER, PATTI L 477.9 ALLERGIC RHINITIS CAUSE UNSPECIFIED 05/27/2011 EATON BAG MACHINE TENDER, PATTI L 599.0 URINARY TRACT INFECTION 05/27/2011 EATON BAG MACHINE TENDER, PATTI L V20.2 WELL CHILD 05/27/2011 078.12 [...] INFECTION 05/27/2011 V20.2 WELL CHILD 05/27/2011 EATON BAG MACHINE TENDER, PATTI L 078.12 PLANTAR WART 05/27/2011 EATON BAG MACHINE TENDER, PATTI L 477.9 ALLERGIC RHINITIS CAUSE UNSPECIFIED 05/27/2011 PATTI [...] 09/27/2011 296.32 MO DEPRESSIVE RECURRENT MODERATE 09/27/2011 DON BARNETTNKENNETHPATTI L 296.32 MO DEPRESSIVE RECURRENT MODERATE 11/02/2011 300.4 MO DYSTHYMIC DISORDER 11/02/2011 DON BARNETTNKENNETHPATTI L 300.4 MO DYSTHYMIC DISORDER 11/02/2011 300.4 MO DYSTHYMIC DISORDER 11/02/2011 300.4 MO DYSTHYMIC DISORDER 11/02/2011 300.4 MO DYSTHYMIC DISORDER 11/02/2011 300.4 MO DYSTHYMIC DISORDER 11/02/2011 DON BARNETTNKENNETHPATTI L 300.4 MO DYSTHYMIC DISORDER 12/16/2011 296.90 MOOD DISORDER NOS 12/16/2011 DON PATTI SOSA 296.90 MOOD DISORDER NOS 12/16/2011 296.90 MOOD DISORDER NOS 12/16/2011 296.90 MOOD DISORDER NOS 12/16/2011 296.90 MOOD DISORDER NOS 12/16/2011 296.90 MOOD DISORDER NOS 12/16/2011 DON SHEILA PATTI L 296.90 MOOD DISORDER NOS 08/03/2012 311 DEPRESSIVE DISORDER NOS 08/03/2012 CHANNINGPATTI CARDENAS APRN L 311 DEPRESSIVE DISORDER NOS 08/03/2012 311 DEPRESSIVE DISORDER NOS 08/03/2012 311 DEPRESSIVE DISORDER NOS 08/03/2012 311 DEPRESSIVE DISORDER NOS 08/03/2012 311 DEPRESSIVE DISORDER NOS 08/03/2012 CHANNINGPATTI CARDENAS APRN 311 DEPRESSIVE DISORDER NOS 09/19/2012 PATTI [...] Anticipatory Guidance: Unsafe Sexual Practices 09/19/2012 DON SHEILA PATTI L 278.00 OBESITY 09/19/2012 EATRONALD BAG MACHINE TENDER, PATTI L V65.3 DIETARY SURVEILLANCE AND COUNSELING 09/19/2012 DON BAG MACHINE TENDER, PATTI L V65.41 EXERCISE COUNSELING 09/19/2012 DON BAG MACHINE TENDER, PATTI L V65.45 Anticipatory Guidance: Unsafe Sexual Practices 03/25/2014 NAVYA MEZA, JUAN LUIS Hoskins Ot 599.0 URIN TRACT INFECTION NOS 03/25/2014 JUAN LUIS MENDOSA MD Ot 788.1 DYSURIA 08/25/2015 NALINI MEZA, KIMBERLY Winn Ot M54.16 RADICULOPATHY, LUMBAR REGION 12/21/2015 JAVI SOMMERS Ot S76.312A STRAIN OF MSL/FASC/TND POST GRP AT [facility] L 12/21/2015 JAVI SOMMERS Ot X58.XXXA EXPOSURE TO OTHER SPECIFIED FACTORS, INI 12/21/2015 JAVI SOMMERS Ot Y99.8 OTHER EXTERNAL CAUSE STATUS 12/22/2015 JAVI SOMMERS Ot S76.312A STRAIN OF MSL/FASC/TND POST GRP AT [facility] L 12/22/2015 JAVI SOMMERS Ot X58.XXXA EXPOSURE TO OTHER SPECIFIED FACTORS, INI 12/22/2015 JAVI SOMMERS Ot Y99.8 OTHER EXTERNAL CAUSE STATUS 07/06/2017 NAVYA MEZA, JUAN LUIS Hoskins Ot F17.210 NICOTINE DEPENDENCE, CIGARETTES, UNCOMPL 07/06/2017 JUAN LUIS MENDOSA MD Ot F32.9 MAJOR DEPRESSIVE DISORDER, SINGLE EPISOD 07/06/2017 JUAN LUIS MENDOSA MD Ot J11.1 FLU DUE TO UNIDENTIFIED INFLUENZA VIRUS 07/06/2017 JUAN LUIS MENDOSA MD Ot R06.02 SHORTNESS OF BREATH 07/06/2017 NAVYA MEZA, JUAN LUIS Hoskins Ot Z87.440 PERSONAL HISTORY OF URINARY (TRACT) INFE 07/06/2017 NAVYA MEZA, JUAN LUIS Hoskins Ot Z90.89 ACQUIRED ABSENCE OF OTHER ORGANS 04/09/2018 BERNOT, AL Ot F17.210 NICOTINE DEPENDENCE, CIGARETTES, UNCOMPL 04/09/2018 BERNOT, AL Ot F32.9 MAJOR DEPRESSIVE DISORDER, SINGLE EPISOD 04/09/2018 BERNOT, AL Ot M54.5 LOW BACK PAIN 04/09/2018 BERNOT, AL Ot S39.012A STRAIN OF MUSCLE, FASCIA AND TENDON OF L 04/09/2018 BERNOT, AL Ot X58.XXXA EXPOSURE TO OTHER SPECIFIED FACTORS, INI 04/09/2018 BERNOT, AL Ot Z87.440 PERSONAL HISTORY OF URINARY (TRACT) INFE 04/09/2018 BERNOT, AL Ot Z90.89 ACQUIRED ABSENCE OF OTHER ORGANS 04/11/2018 BERNOT, AL Ot F17.210 NICOTINE DEPENDENCE, CIGARETTES, UNCOMPL 04/11/2018 BERNOT, AL Ot F32.9 MAJOR DEPRESSIVE DISORDER, SINGLE EPISOD 04/11/2018 BERNOT, AL Ot M54.5 LOW BACK PAIN 04/11/2018 BERNOT, AL Ot S39.012A STRAIN OF MUSCLE, FASCIA AND TENDON OF L 04/11/2018 BERNOT, AL Ot X58.XXXA EXPOSURE TO OTHER SPECIFIED FACTORS, INI 04/11/2018 BERNOT, AL Ot Z87.440 PERSONAL HISTORY OF URINARY (TRACT) INFE 04/11/2018 BERNOT, AL Ot Z90.89 ACQUIRED ABSENCE OF OTHER ORGANS Procedures Code Description [place] [address] PSYTX PT&/FAMILY 30 MINUTES 08/13/2012 69937 ROUTINE VENIPUNCTURE 09/19/2012 85597 URINE TEST (IN- HOUSE) 09/19/2012 91019 CBC 09/19/2012 43512 LIPID PANEL 09/19/2012 38644 CMP 09/19/2012 65214 A1C (RML) 09/19/2012 36055 T4 FREE 09/19/2012 34936 TSH 09/19/2012 02327 INSULIN LEVEL 09/19/2012 74285 PSYCH DIAGNOSTIC EVALUATION 09/21/2012 56303 PSYTX PT&/FAMILY 30 MINUTES 10/25/2012 01161 PSYTX PT&/FAMILY 45 MINUTES 11/07/2012 05324 PSYTX PT&/FAMILY 45 MINUTES 11/14/2012 92958 UA LONG DIP 11/21/2012 74858 PSYTX PT&/FAMILY 45 MINUTES 11/21/2012 11938 CULTURE URINE 11/21/2012 Results Test Result Range [...] A AND B ANTIGENS BY IA NRG Complete urinalysis with reflex to culture - 04/09/18 17:58 Urine color determination YELLOW NRG Urine clarity determination CLEAR NRG Urine pH measurement by test strip 6 5-9 Specific gravity of urine by test strip 1.015 1.016- 1.022 Urine protein assay by test strip, semi-quantitative NEGATIVE NEGATIVE Urine glucose detection by automated test strip NEGATIVE NEGATIVE Erythrocytes detection in urine sediment by light microscopy 1+ NEGATIVE Urine ketones detection by automated test strip NEGATIVE NEGATIVE Urine nitrite detection by test strip NEGATIVE NEGATIVE Urine total bilirubin detection by test strip NEGATIVE NEGATIVE Urine urobilinogen measurement by automated test strip (mass/volume) NORMAL NORMAL Urine leukocyte esterase detection by dipstick NEGATIVE NEGATIVE Automated urine sediment erythrocyte count by microscopy (number/high power field) NONE NRG Automated urine sediment leukocyte count by microscopy (number/high power field ) NONE NRG Bacteria detection in urine sediment by light microscopy NEGATIVE NRG Squamous epithelial cells detection in urine sediment by light microscopy 0-2 NRG Crystals detection in urine sediment by light microscopy NONE NRG Casts detection in urine sediment by light microscopy NONE NRG Mucus detection in urine sediment by light microscopy NEGATIVE NRG Complete urinalysis with reflex to culture NO NRG Encounters ACCT No. Visit Date/Time Discharge Status Pt. Type Provider Facility Loc./Unit Complaint [id number] 11/21/2012 13:33:00 11/21/2012 23:59:59 CLS Outpatient PATTI OCHOA APRN [id number] 09/19/2012 09:28:00 09/19/2012 23:59:59 CLS Outpatient PATTI OCHOA APRN [id number] 08/03/2012 10:03:00 08/03/2012 23:59:59 CLS Outpatient [id number] 11/21/2012 13:33:00 Document Registration [id number] 11/14/2012 14:59:00 Document Registration [id number] 10/24/2012 15:55:00 Document Registration [id number] 10/10/2012 15:59:00 Document Registration [id number] 03/10/2017 03:06:00 Document Registration [id number] 09/29/2018 06:46:00 09/29/2018 08:41:00 DIS Emergency JUAN LUIS MENDOSA MD Via [facility] ER THROWING UP [id number] 04/09/2018 17:40:00 04/09/2018 19:16:00 DIS Emergency AL SCOTT Via [facility] ER BACK PAIN ON LEFT SIDE [id number] 07/06/2017 22:19:00 07/06/2017 23:48:00 DIS Emergency JUAN LUIS MENDOSA MD Via [facility] ER SOB [id number] 12/21/2015 15:40:00 12/21/2015 18:28:00 DIS Emergency JAVI SOMMERS Via [facility] ER L LEG PAIN [id number] 08/25/2015 12:54:00 08/25/2015 14:36:00 DIS Emergency KIMBERLY GAYLE MD Via [facility] ER BACK PAIN [id number] 03/25/2014 04:48:00 03/25/2014 06:02:00 DIS Emergency JUAN LUIS MENDOSA MD Via [facility] ER HURTS TO URINATE [id number] 10/12/2018 19:44:00 ACT Emergency TOSIN MEZA, EYAD Perez Via [facility] ER LUNGS ARE HURTING [id number] 03/03/2016 08:46:00 Document Registration [id number] 04/14/2017 11:08:00 Document Registration [id number] 04/11/2017 09:20:00 04/11/2017 23:59:59 CLS Outpatient RAGHU [facility] [id number] 04/11/2017 09:20:00 Document Registration [id number] 03/07/2017 18:15:00 Document Registration [id number] 06/01/2017 13:22:00 06/01/2017 23:59:00 DIS Outpatient MARÍA CLARKE [id number] 01/08/2017 18:06:00 Document Registration
[2018-10-12 20:53] LABS: BILIRUBIN,URINE NEGATIVE (NEGATIVE); CLARITY,URINE CLEAR; COLOR,URINE YELLOW; GLUCOSE, URINE (UA) NEGATIVE (NEGATIVE); KETONES,URINE NEGATIVE (NEGATIVE); LEUKOCYTE ESTERASE ,URINE NEGATIVE (NEGATIVE); NITRITE,URINE NEGATIVE (NEGATIVE); PH,URINE 5 (5-9); PROTEIN,URINE NEGATIVE (NEGATIVE); UROBILINOGEN,URINE NORMAL (NORMAL)
[2018-10-12 21:07] LABS: BACTERIA,URINE NEGATIVE /HPF; WBC,URINE RARE /HPF
[2018-10-12] MEDS ORDERED: RX-DIPHENO./ATROP. 2.5/0.25 MG (LOMOTIL) TAB PPK#4 PO STA (21:41)
--- NOTE | 2018-10-12 21:44 | ED GI ---
General Chief Complaint: Cough/Cold/Flu Symptoms Stated Complaint: LUNGS ARE HURTING Nursing Triage Note: pt c/o nausea, diarrhea, body aches, cough, and fever x 3 days. pt reports taking ibuprofen about an hour ago for the pain. Sepsis Screen: No Definite Risk History of Present Illness Date Seen by Provider: Oct 12, 2018 Time Seen by Provider: 21:00 Initial Comments 22-year-old female presents for diarrhea, myalgias and possible fever. Patient states that she has become diaphoretic at times but she has never checked her temperature. Is afebrile on presentation but took ibuprofen approximately one hour prior to arrival. She reports her symptoms of been intermittent for approximately 3 days. She denies any dietary changes. No history of chronic GI problems. Timing/Duration: 3-4 Days Severity/Quality: Mild Location: Generalized Abdomen Radiation: No Radiation Allergies and Home Medications Allergies Coded Allergies: No Known Drug Allergies (Unverified , 07/06/17) Home Medications Ondansetron 4 Mg Tab.rapdis, 4 MG SL Q4H PRN for NAUSEA/VOMITING Prescribed by: JUAN LUIS CHONG on 09/29/18 0835 Patient Home Medication List Home Medication List Reviewed: Yes Review of Systems Review of Systems Constitutional: no symptoms reported, see HPI Gastrointestinal: See HPI, Diarrhea All Other Systems Reviewed Negative Unless Noted: Yes Past Baiafip-Sdaspj-Kdieyc Hx Past Med/Social Hx: Reviewed Nursing Past Med/Soc Hx Patient Social History Alcohol Use: Denies Use Recreational Drug Use: No Type Used: Cigarettes Recent Foreign Travel: No Contact w/Someone Who Travel: No Recent Infectious Disease Expo: No Recent Hopitalizations: No Seasonal Allergies Seasonal Allergies: No Past Medical History Surgeries: Yes Adenoidectomy, Tonsillectomy Respiratory: No Cardiac: No Neurological: No Genitourinary: No UTI-Chronic Gastrointestinal: No Musculoskeletal: No Endocrine: No HEENT: No Cancer: No Psychosocial: No Depression Integumentary: No Blood Disorders: No Family Medical History No Pertinent Family Hx Physical Exam Vital Signs Vital Signs - First Documented 10/12/18 20:34 Temp 98.5 Pulse 76 Resp 20 B/P (MAP) 140/80 (100) Pulse Ox 96 O2 Delivery Room Air Capillary Refill : Less Than 3 Seconds Height/Weight/BMI Height: 5'1.00" Weight: 220lbs. oz. 99.853050cr; 37.78 BMI Method:Stated General Appearance: WD/WN, no apparent distress HEENT: PERRL/EOMI, normal ENT inspection, TMs normal, pharynx normal Neck: non-tender, full range of motion, supple, normal inspection Respiratory: chest non-tender, lungs clear, normal breath sounds Cardiovascular: normal peripheral pulses, regular rate, rhythm Gastrointestinal: normal bowel sounds, non tender, soft; No distended, No guarding, No rebound, No tenderness Extremities: normal range of motion, non-tender, normal inspection, normal capillary refill Back: normal inspection, no CVA tenderness, no vertebral tenderness Neurologic/Psychiatric: no motor/sensory deficits, alert, normal mood/affect, oriented x 3 Skin: normal color, warm/dry, other (skin turgor less than 3 seconds) Lymphatic: no adenopathy Progress/Results/Core Measures Results/Orders Lab Results Laboratory Tests Test 10/12/18 20:40 Range/Units Urine Color YELLOW Urine Clarity CLEAR Urine pH 5 5-9 Urine Specific [place] 1.025 H 1.016-1.022 Urine Protein NEGATIVE NEGATIVE Urine Glucose (UA) NEGATIVE NEGATIVE Urine Ketones NEGATIVE NEGATIVE Urine Nitrite NEGATIVE NEGATIVE Urine Bilirubin NEGATIVE NEGATIVE Urine Urobilinogen NORMAL NORMAL MG/DL Urine Leukocyte Esterase NEGATIVE NEGATIVE Urine RBC (Auto) NEGATIVE NEGATIVE Urine RBC NONE /HPF Urine WBC RARE /HPF Urine Squamous Epithelial Cells 2-5 /HPF Urine Crystals NONE /LPF Urine Bacteria NEGATIVE /HPF Urine Casts NONE /LPF Urine Mucus NEGATIVE /LPF Urine Culture Indicated NO My Orders Orders - ANITA ROLON Rx-Diphenoxylate/Atropine (Rx-Lomotil 2. (10/12/18 21:41) Vital Signs/I&O 10/12/18 10/12/18 10/12/18 20:34 20:52 22:05 Temp 98.5 Pulse 76 67 Resp 20 20 B/P (MAP) 140/80 (100) 108/62 (77) Pulse Ox 96 96 O2 Delivery Room Air Room Air Room Air Blood Pressure Mean: 100 Departure Impression Primary Impression: Viral gastroenteritis Additional Impression: Diarrhea Qualified Codes: R19.7 - Diarrhea, unspecified Disposition: 01 HOME, SELF-CARE Condition: Improved Departure-Patient Inst. Decision time for Depature: 21:40 Referrals: [facility] (PCP/Family) Primary Care Physician Patient Instructions: Viral Gastroenteritis, Adult (DC) Add. Discharge Instructions: Clear liquid diet for the next 8 hours. [place] diet as tolerated. Take the Lomotil every 6-8 hours as needed for diarrhea. Increase fluid intake. Alternate between ibuprofen 600 mg and Tylenol 650 mg every 4 hours for pain or fever. Increase rest. Follow-up at [facility] if symptoms are not improving or worsen. Return to emergency department for nausea and vomiting, fever greater than 101 not relieved by Tylenol or ibuprofen, new problems or concerns. All discharge instructions reviewed with patient and/or family. Voiced understanding. Work/School Note: Work Release Form Date Seen in the Emergency Department: Oct 12, 2018 Return to Work: Oct 14, 2018 Restrictions: No Restrictions ANITA ROLON Oct 12, 2018 21:44
[2018-10-12 22:05] VITALS: BP 108/62
== END 2018-10-12 22:06 | disposition home or self-care (01) ==
LOC: EDUNIT# 19:43 → ER 19:44
DX: A08.4 Viral intestinal infection, unspecified (principal); F32.9 Major depressive disorder, single episode, unspecified; Z90.89 Acquired absence of other organs; Z87.440 Personal history of urinary (tract) infections
CPT/HCPCS: 81000; 84703; 99283

== ENCOUNTER 2018-10-13 21:17 | Emergency (ER) | payer OTHER ==
[~2018-10-13] VITALS: Ht 154.9 cm; Wt 99.8 kg
--- OUTSIDE RECORDS SUMMARY | 2018-10-13 21:24 | XMS REPORT | Continuity of Care Document ---
Author Organization Unknown Address Unknown Allergies Active Description Code Type Severity Reaction Onset Reported/Identified Relationship to Patient Clinical Status Yes No Known Drug Allergies [id number] Drug Allergy Unknown N/A 07/06/2017 Medications There is no data. Problems Date Dx Coded Attending Type Code Diagnosis Diagnosed By 05/27/2011 078.12 PLANTAR WART 05/27/2011 477.9 ALLERGIC RHINITIS CAUSE UNSPECIFIED 05/27/2011 599.0 URINARY TRACT INFECTION 05/27/2011 V20.2 WELL CHILD 05/27/2011 EATON ULTRASOUND MANAGER, PATTI L 078.12 PLANTAR WART 05/27/2011 EATON ULTRASOUND MANAGER, PATTI L 477.9 ALLERGIC RHINITIS CAUSE UNSPECIFIED 05/27/2011 EATON ULTRASOUND MANAGER, PATTI L 599.0 URINARY TRACT INFECTION 05/27/2011 EATON ULTRASOUND MANAGER, PATTI L V20.2 WELL CHILD 05/27/2011 078.12 [...] INFECTION 05/27/2011 V20.2 WELL CHILD 05/27/2011 EATON ULTRASOUND MANAGER, PATTI L 078.12 PLANTAR WART 05/27/2011 EATON ULTRASOUND MANAGER, PATTI L 477.9 ALLERGIC RHINITIS CAUSE UNSPECIFIED [...] SHEILA PATTI L 278.00 OBESITY 09/19/2012 EATRONALD ULTRASOUND MANAGER, PATTI L V65.3 DIETARY SURVEILLANCE AND COUNSELING 09/19/2012 DON ULTRASOUND MANAGER, PATTI L V65.41 EXERCISE COUNSELING 09/19/2012 DON ULTRASOUND MANAGER, PATTI L V65.45 Anticipatory Guidance: Unsafe Sexual Practices 03/25/2014 NAVYA MEZA, JUAN LUIS Hoskins Ot 599.0 URIN TRACT INFECTION NOS 03/25/2014 JUAN LUIS MENDOSA MD Ot 788.1 DYSURIA 08/25/2015 NALINI MEZA, KIMBERLY Winn Ot M54.16 RADICULOPATHY, LUMBAR REGION 12/21/2015 JAVI SOMMERS Ot S76.312A STRAIN OF MSL/FASC/TND POST GRP AT [facility] L 12/21/2015 JAVI SOMMERS Ot X58.XXXA EXPOSURE TO OTHER SPECIFIED FACTORS, INI 12/21/2015 JAVI SOMMERS Ot Y99.8 OTHER EXTERNAL CAUSE STATUS 12/22/2015 JAVI SOMMERS Ot S76.312A STRAIN OF MSL/FASC/TND POST GRP AT [facility] L 12/22/2015 JAVI SOMMERS Ot X58.XXXA EXPOSURE TO OTHER SPECIFIED FACTORS, INI 12/22/2015 JAVI SOMMERS Ot Y99.8 OTHER EXTERNAL CAUSE STATUS 07/06/2017 NAVYA MEZA, JUAN LUIS Hoskins Ot F17.210 NICOTINE DEPENDENCE, CIGARETTES, UNCOMPL 07/06/2017 JUAN LUIS MENDOSA MD Ot F32.9 MAJOR DEPRESSIVE DISORDER, SINGLE EPISOD 07/06/2017 JUAN LUIS MENDOSA MD Ot J11.1 FLU DUE TO UNIDENTIFIED INFLUENZA VIRUS 07/06/2017 BRUEGGEMANN MD, JUAN LUIS T Ot R06.02 SHORTNESS OF BREATH 07/06/2017 NAVYA MEZA, JUAN LUIS T Ot Z87.440 PERSONAL HISTORY OF URINARY (TRACT) INFE 07/06/2017 NAVYA MEZA, JUAN LUIS T Ot Z90.89 ACQUIRED ABSENCE OF OTHER ORGANS [...] Ot Z90.89 ACQUIRED ABSENCE OF OTHER ORGANS 09/29/2018 NAVYA MEZA, JUAN LUIS T Ot F17.210 NICOTINE DEPENDENCE, CIGARETTES, UNCOMPL 09/29/2018 NAVYA MEZA, JUAN LUIS Hoskins Ot F32.9 MAJOR DEPRESSIVE DISORDER, SINGLE EPISOD 09/29/2018 NAVYA MEZA, JUAN LUIS T Ot R11.10 VOMITING, UNSPECIFIED 09/29/2018 NAVYA MEZA, JUAN LUIS T Ot R11.2 NAUSEA WITH VOMITING, UNSPECIFIED 09/29/2018 NAVYA MEZA, JUAN LUIS T Ot Z87.440 PERSONAL HISTORY OF URINARY (TRACT) INFE 09/29/2018 NAVYA MEZA, JUAN LUIS Hoskins Ot Z90.89 ACQUIRED ABSENCE OF OTHER ORGANS Procedures Code Description [place] [address] PSYTX PT&/FAMILY 30 MINUTES 08/13/2012 60436 ROUTINE VENIPUNCTURE 09/19/2012 46549 URINE TEST (IN- HOUSE) 09/19/2012 55383 CBC 09/19/2012 06235 LIPID PANEL 09/19/2012 38542 CMP 09/19/2012 21450 A1C (RML) 09/19/2012 54403 T4 FREE 09/19/2012 51299 TSH 09/19/2012 06743 INSULIN LEVEL 09/19/2012 13119 PSYCH DIAGNOSTIC EVALUATION 09/21/2012 89539 PSYTX PT&/FAMILY 30 MINUTES 10/25/2012 01152 PSYTX PT&/FAMILY 45 MINUTES 11/07/2012 66476 PSYTX PT&/FAMILY 45 MINUTES 11/14/2012 73657 UA LONG DIP 11/21/2012 45208 PSYTX PT&/FAMILY 45 MINUTES 11/21/2012 58473 CULTURE URINE 11/21/2012 Results Test Result Range [...] urinalysis with reflex to culture NO NRG Complete urinalysis with reflex to culture - 10/12/18 20:40 Urine color determination YELLOW NRG Urine clarity determination CLEAR NRG Urine pH measurement by test strip 5 5-9 Specific gravity of urine by test strip 1.025 1.016- 1.022 Urine protein assay by test strip, semi-quantitative NEGATIVE NEGATIVE Urine glucose detection by automated test strip NEGATIVE NEGATIVE Erythrocytes detection in urine sediment by light microscopy NEGATIVE NEGATIVE Urine ketones detection by automated test [...] count by microscopy (number/high power field ) RARE NRG Bacteria detection in urine sediment by light microscopy NEGATIVE NRG Squamous epithelial cells detection in urine sediment by light microscopy 2-5 NRG Crystals detection in urine sediment by light microscopy NONE NRG Casts detection in urine sediment by light microscopy NONE NRG Mucus detection in urine sediment by light microscopy NEGATIVE NRG Complete urinalysis with reflex to culture NO NRG Encounters ACCT No. Visit Date/Time Discharge Status Pt. Type Provider Facility Loc./Unit Complaint [id number] 11/21/2012 13:33:00 11/21/2012 23:59:59 CLS Outpatient PATTI OCHOA APRN [id number] 09/19/2012 09:28:00 09/19/2012 23:59:59 CLS Outpatient PATTI OCHOA APRN [id number] 08/03/2012 10:03:00 08/03/2012 23:59:59 CLS Outpatient [id number] 11/21/2012 13:33:00 Document Registration [id number] 11/14/2012 14:59:00 Document Registration [id number] 10/24/2012 15:55:00 Document Registration [id number] 10/10/2012 15:59:00 Document Registration [id number] 03/10/2017 03:06:00 Document Registration [id number] 10/12/2018 19:44:00 10/12/2018 22:06:00 DIS Emergency GONZALESANITA TEST DRIVER Via [facility] ER LUNGS ARE HURTING [id number] 09/29/2018 06:46:00 09/29/2018 08:41:00 DIS Emergency JUAN LUIS MENDOSA MD Via [facility] ER THROWING UP [id number] 04/09/2018 17:40:00 04/09/2018 19:16:00 DIS Emergency AL SCOTT Via [facility] ER BACK PAIN ON LEFT SIDE [id number] 07/06/2017 22:19:00 07/06/2017 23:48:00 DIS Emergency JUAN LUIS MENDOSA MD Via [facility] ER SOB [id number] 12/21/2015 15:40:00 12/21/2015 18:28:00 DIS Emergency JAVI SOMMERS Via [facility] ER L LEG PAIN [id number] 08/25/2015 12:54:00 08/25/2015 14:36:00 DIS Emergency KIMBERLY GAYLE MD Via [facility] ER BACK PAIN [id number] 03/25/2014 04:48:00 03/25/2014 06:02:00 DIS Emergency JUAN LUIS MENDOSA MD Via [facility] ER HURTS TO URINATE [id number] 10/13/2018 21:18:00 ACT Emergency KIMBERLY GAYLE MD Via [facility] ER SOA,FEVER [id number] 03/03/2016 08:46:00 Document Registration [id number] 04/14/2017 11:08:00 Document Registration [id number] 04/11/2017 09:20:00 04/11/2017 23:59:59 CLS Outpatient [facility]AGHU [facility] [id number] 04/11/2017 09:20:00 Document Registration [id number] 03/07/2017 18:15:00 Document Registration [id number] 06/01/2017 13:22:00 06/01/2017 23:59:00 DIS Outpatient MARÍA CLARKE [id number] 01/08/2017 18:06:00 Document Registration
[2018-10-13] MEDS ORDERED: IBUPROFEN 800 MG (MOTRIN) TAB PO STA (21:57)
[2018-10-13] MEDS ORDERED: RX-ALBUTEROL INHALER (PROAIR) 8 GM IH PRN (22:00)
--- NOTE | 2018-10-13 22:02 | ED Cough/URI ---
General Chief Complaint: Fever-Adult/Adol Stated Complaint: SOA,FEVER Source: patient Exam Limitations: no limitations History of Present Illness Date Seen by Provider: Oct 13, 2018 Time Seen by Provider: 21:51 Initial Comments Here with report of cough and shortness of air tonight. Also fever of greater than 100. Seen yesterday for gastroenteritis type symptoms and that has all resolved. 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 Does smoke but has not smoked today because of cough. States overall just doesn't feel well. She did not take anything for aches or coughing and presented here for evaluation. Timing/Duration: this morning Severity/Quality: moderate, dry cough Prior Episodes/Possible Cause: occasional episodes Modifying Factors: Worse With Activity; Improves With Rest Associated Symptoms: cough, fever/chills, muscle aches, shortness of breath, sore throat, wheezing Allergies and Home Medications Allergies Coded Allergies: No Known Drug Allergies (Unverified , 07/06/17) Home Medications Ondansetron 4 Mg Tab.rapdis, 4 MG SL Q4H PRN for NAUSEA/VOMITING Prescribed by: JUAN LUIS CHONG on 09/29/18 0835 Patient Home Medication List Home Medication List Reviewed: Yes Review of Systems Review of Systems Constitutional: see HPI; No chills; fever, malaise; No weakness EENTM: nose congestion; No ear pain Respiratory: cough, short of breath Cardiovascular: No chest pain, No edema Gastrointestinal: No abdominal pain, No diarrhea, No nausea, No vomiting Genitourinary: no symptoms reported Musculoskeletal: No joint pain; muscle pain Skin: no symptoms reported Past Qhbrual-Hlvylx-Tgusja Hx Past Med/Social Hx: Reviewed Nursing Past Med/Soc Hx Patient Social History Alcohol Use: Denies Use Recreational Drug Use: No Smoking Status: Current Everyday Smoker Type Used: Cigarettes Recent Foreign Travel: No Contact w/Someone Who Travel: No Recent Hopitalizations: No Seasonal Allergies Seasonal Allergies: No Past Medical History Surgeries: Yes Adenoidectomy, Tonsillectomy Respiratory: No Cardiac: No Neurological: No Genitourinary: No UTI-Chronic Gastrointestinal: No Musculoskeletal: No Endocrine: No HEENT: No Cancer: No Psychosocial: No Depression Integumentary: No Blood Disorders: No Family Medical History Reviewed Nursing Family Hx No Pertinent Family Hx Physical Exam Vital Signs - First Documented 10/13/18 21:46 Temp 99.2 Pulse 86 Resp 18 B/P (MAP) 124/84 (97) Pulse Ox 98 O2 Delivery Room Air Capillary Refill : Height: 5'1.00" Weight: 220lbs. oz. 99.311867xo; 37.78 BMI Method:Stated General Appearance: WD/WN, no apparent distress HEENT: PERRL/EOMI, TMs normal, pharyngeal erythema Neck: full range of motion, supple, normal inspection; No lymphadenopathy (R), No lymphadenopathy (L) Respiratory: lungs clear, normal breath sounds Cardiovascular: regular rate, rhythm, no murmur Gastrointestinal: non tender, soft Extremities: non-tender, normal inspection Neurologic/Psychiatric: alert, oriented x 3 Skin: normal color, warm/dry Progress/Results/Core Measures Suspected Sepsis SIRS Temperature: Pulse: Respiratory Rate: Blood Pressure / Mean: Results/Orders Micro Results Microbiology 10/13/18 Influenza Types A,B Antigen ([facility]) - Final, Complete My Orders Orders - KIMBERLY GAYLE MD Influenza A And B Antigens (10/13/18 21:55) Rx-Albuterol Inhaler (Rx-Proair) (10/13/18 22:00) Ibuprofen Tablet (Motrin Tablet) (10/13/18 21:57) Medications Given in ED Current Medications Medications Dose Ordered Sig/Johanna Route Start Time Stop Time Status Last Admin Dose Admin Albuterol Sulfate 2 PUFFS QID PRN IH 10/13/18 22:00 10/13/18 22:06 2 GM Vital Signs/I&O 10/13/18 10/13/18 21:46 22:06 Temp 99.2 Pulse 86 Resp 18 B/P (MAP) 124/84 (97) Pulse Ox 98 95 O2 Delivery Room Air Room Air Capillary Refill : Progress Note : Progress Note Seen and evaluated. Influenza screen ordered. Albuterol MDI initiated with teaching. Ibuprofen 800 mg by mouth ordered. Monitor patient. 2234: Overall improved. Influenza negative. Discharged home with return precautions. Patient verbalize understanding instructions and agreement with plan. Departure Impression Primary Impression: Viral upper respiratory illness Additional Impression: Fever in adult Disposition: 01 HOME, SELF-CARE Condition: Improved Departure-Patient Inst. Decision time for Depature: 22:34 Referrals: [facility] (PCP/Family) Primary Care Physician Patient Instructions: Fever, Adult (DC), Viral Upper Respiratory Infection, Adult (DC) Add. Discharge Instructions: All discharge instructions reviewed with patient and/or family. Voiced understanding. You may take Tylenol/acetaminophen 1000 mg every 8 hours as needed for fever or pain. You may take ibuprofen 800 mg every 8 hours as needed for fever or pain. You may use Afrin nasal spray or the generic, 12 hour relief, 2 sprays to each nostril twice daily for 3 days only and then stop. Do not use more than 3 days. Follow-up with your Dr. in a few days for recheck. Drink plenty of fluids. Return for worse pain, fever, vomiting, weakness, breathing problems or other concerns as needed.Return for worse pain, fever, vomiting, weakness, breathing problems or other concerns as needed. Work/School Note: Work Release Form Date Seen in the Emergency Department: Oct 13, 2018 Return to Work: Oct 15, 2018 Restrictions: No Restrictions KIMBERLY GAYLE MD Oct 13, 2018 22:02
[2018-10-13 22:49] VITALS: BP 125/57
== END 2018-10-13 22:50 | disposition home or self-care (01) ==
LOC: EDUNIT# 21:17 → ER 21:18
DX: J06.9 Acute upper respiratory infection, unspecified (principal); F32.9 Major depressive disorder, single episode, unspecified; F17.210 Nicotine dependence, cigarettes, uncomplicated; Z90.89 Acquired absence of other organs; Z87.440 Personal history of urinary (tract) infections
CPT/HCPCS: 87804; 94640

== ENCOUNTER 2019-07-11 01:22 | Emergency (ER) | payer OTHER ==
[~2019-07-11] VITALS: Ht 154 cm; Wt 90.0 kg
[~2019-07-11 01:22] MED LIST changes: -TRAM50TA2 PO; -TRAZ-189 PO; +TRM50T PO; +TRZ50T PO
--- NOTE | 2019-07-11 02:00 | ED Upper Extremity ---
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 VERBALIZES PAIN AND LIMITED ROM IN L HAND, MILD SWELLING NOTED Nursing Sepsis Screen: No Definite Risk Source: patient Exam Limitations: no limitations History of Present Illness Date Seen by Provider: Jul 11, 2019 Time Seen by Provider: 01:49 Initial Comments Patient resents to ER by private conveyance with chief complaint that about a half an hour prior to arrival she tripped fallen out of her shower and landed on her outstretched hands. She has little refugio on her right leg which she said did not bleed is not in pain at this time. She had no problems walking. She did not strike her head nor lose consciousness. She is not on any blood thinners. She took some ibuprofen prior to coming in but no ice pack. She is right-handed. Allergies and Home Medications Allergies Coded Allergies: No Known Drug Allergies (Unverified , 07/06/17) Home Medications Ondansetron 4 Mg Tab.rapdis, 4 MG SL Q4H PRN for NAUSEA/VOMITING Prescribed by: JUAN LUIS CHONG on 09/29/18 0835 Patient Home Medication List Home Medication List Reviewed: Yes Review of Systems Constitutional: No chills, No diaphoresis EENTM: No ear discharge, No ear pain Respiratory: No cough, No short of breath Cardiovascular: No chest pain, No edema Gastrointestinal: No abdominal pain, No constipation, No diarrhea Genitourinary: No discharge, No dysuria Musculoskeletal: see HPI; No back pain; joint pain Past Hwvpcvs-Axvnyw-Xdnely Hx Patient Social History Alcohol Use: Occasionally Uses Alcohol Beverage of Choice: Beer Recreational Drug Use: No Smoking Status: Current Everyday Smoker Type Used: Cigarettes 2nd Hand Smoke Exposure: Yes Recent Foreign Travel: No Contact w/Someone Who Travel: No Recent Infectious Disease Expo: No Recent Hopitalizations: No Physical Abuse: No Sexual Abuse: No Mistreated: No Fear: No Immunizations Up To Date Tetanus Booster (TDap): More than 5yrs PED Vaccines UTD: Yes Seasonal Allergies Seasonal Allergies: No Past Medical History Surgeries: Yes Adenoidectomy, Tonsillectomy Respiratory: No Cardiac: No Neurological: No : No Last Menstrual Period: Jun 05, 2019 Genitourinary: No UTI-Chronic Gastrointestinal: No Musculoskeletal: No Endocrine: No HEENT: No Cancer: No Psychosocial: No Depression Integumentary: No Blood Disorders: No Family Medical History No Pertinent Family Hx Physical Exam Vital Signs Vital Signs - First Documented 07/11/19 01:30 Temp 36.9 Pulse 75 Resp 20 B/P (MAP) 131/92 (105) Pulse Ox 99 O2 Delivery Room Air Capillary Refill : Less Than 3 Seconds Height, Weight, BMI Height: 5'1.00" Weight: 220lbs. oz. 99.270196xg; 37.00 BMI Method:Actual General Appearance: WD/WN HEENT: PERRL/EOMI, pharynx normal Neck: full range of motion, normal inspection Cardiovascular: normal peripheral pulses, regular rate, rhythm Respiratory: no respiratory distress, no accessory muscle use Elbow/Forearm: normal inspection, non-tender, no evidence of injury, normal ROM, Left Wrist: Yes normal inspection, Yes non-tender, Yes no evidence of injury, Yes normal ROM Hand: normal ROM, Left, bone tenderness (third fourth and fifth metacarpals), ecchymosis, soft tissue tenderness, swelling Neurologic/Psychiatric: no motor/sensory deficits, alert, normal mood/affect, oriented x 3 Skin: normal color, warm/dry Progress/Results/Core Measures Results/Orders Lab Results Laboratory Tests Test 07/11/19 01:50 Range/Units Urine Test NEGATIVE NEGATIVE My Orders Orders - EYAD LEAHY Urinalysis (07/11/19 01:48) Hcg,Qualitative Urine (07/11/19 01:48) Hand, Left, 3 Views (07/11/19 01:56) Vital Signs/I&O 07/11/19 01:30 Temp 36.9 Pulse 75 Resp 20 B/P (MAP) 131/92 (105) Pulse Ox 99 O2 Delivery Room Air Blood Pressure Mean: 105 Progress Progress Note : Time: 01:59 Progress Note Ice pack, elevation compression and x-ray of the left hand. Looks like a boxer's fracture which would be inconsistent with her described fall. Diagnostic Imaging Diagonstic Imaging: Xray Plain Films/CT/US/NM/MRI: hand (left three-view) Comments No acute osseous abnormality noted. Reviewed: Reviewed by Me Departure Impression Primary Impression: Fall Qualified Codes: W19.XXXA - Unspecified fall, initial encounter Additional Impression: Contusion of left hand, initial encounter Disposition: 01 HOME, SELF-CARE Condition: Stable Departure-Patient Inst. Decision time for Depature: 02:38 Referrals: NO,LOCAL PHYSICIAN (PCP/Family) Primary Care Physician Patient Instructions: Contusion (DC) Add. Discharge Instructions: Ice pack applied to your hand for 20 minutes every 4 hours as needed for pain and swelling. Keep your hand elevated above the level of your heart to reduce swelling and pain. Keep an Gabriel bandage wrapped around your hand for compression to reduce swelling and pain. Tylenol 1000 mg every 8 hours as needed for pain. Ibuprofen 800 mg every 8 hours as needed for pain. If you're still having significant pain at 7-10 days then you need to follow-up with your primary care doctor for reexamination as it is possible an occult fracture has been missed on the initial x-ray. All discharge instructions reviewed with patient and/or family. Voiced understanding. Work/School Note: Work Release Form Date Seen in the Emergency Department: Jul 11, 2019 Return to Work: Jul 11, 2019 Restrictions: Need Release from Doctor Other Restrictions Listed Below: Light duty left hand until 07/18/19. EYAD LEAHY Jul 11, 2019 02:00
[2019-07-11 03:13] VITALS: BP 131/92
--- NOTE | 2019-07-11 06:24 | Diagnostic Imaging Report ---
INDICATION: Left hand pain, fall COMPARISON: None FINDINGS: 3 views of the left hand demonstrate no visible fracture or dislocation. Soft tissue swelling is present. There is no foreign body or bony erosion. IMPRESSION: No fracture or dislocation. Dictated by: Dictated on workstation # [id number]
== END 2019-07-11 03:13 | disposition home or self-care (01) ==
LOC: EDUNIT# 01:22 → ER 01:23
DX: S60.222A Contusion of left hand, initial encounter (principal); F32.9 Major depressive disorder, single episode, unspecified; F17.210 Nicotine dependence, cigarettes, uncomplicated; Z90.89 Acquired absence of other organs; Z87.440 Personal history of urinary (tract) infections; W01.0XXA Fall on same level from slipping, tripping and stumbling without subsequent striking against object, initial encounter
CPT/HCPCS: 73130; 84703

== ENCOUNTER 2020-11-08 23:28 | Emergency (ER) | payer OTHER ==
[~2020-11-08] VITALS: Ht 154.9 cm; Wt 109.5 kg
[2020-11-08] MEDS ORDERED: PRD20T PO (23:57)
--- NOTE | 2020-11-08 23:57 | ED Integumentary General ---
General Chief Complaint: Bite-Animal/Human/Insect Stated Complaint: SPIDER BITE R THIGH Source: patient History of Present Illness Date Seen by Provider: November 08, 2020 Time Seen by Provider: 23:48 Initial Comments PT ARRIVES VIA POV FROM HOME C/O SPIDER BITE TO RIGHT THIGH STATES AT 10 AM TODAY, SHE HAD JUST GOTTEN IN THE CAR TO GO TO WORK AND SAW A BROWN RECLUSE SPIDER CRAWL ACROSS HER ABDOMEN MID AFTERNOON, SHE BEGAN TO HAVE SOME ITCHING TO HER RIGHT LATERAL THIGH TONIGHT, NOTICED A RED AREA AT THE SITE AND IT STINGS A LITTLE, WELL ITCHES STATES THAT THERE ARE BROWN RECLUSE SPIDERS "ALL OVER THE HOUSE AND IN MY BED" STATES SHE HAS NEVER BEEN BITTEN/STUNG BY ONE BEFORE DID NOT ACTUALLY FEEL OR SEE ANYTHING BITE HER TODAY HAS NOT TAKEN ANYTHING FOR SYMPTOMS NO HISTORY OF SKIN PROBLEMS LAST TETANUS VACCINATION < 5 YEARS AGO. PCP: [facility] Allergies and Home Medications Allergies Coded Allergies: No Known Drug Allergies (Unverified , 07/06/17) Home Medications Ondansetron 4 Mg Tab.rapdis, 4 MG SL Q4H PRN for NAUSEA/VOMITING Prescribed by: JUAN LUIS CHONG on 09/29/18 0835 Prednisone 20 Mg Tab, 40 MG PO DAILY Prescribed by: ASHA SEN on 11/08/20 3835 Patient Home Medication List Home Medication List Reviewed: Yes Review of Systems Review of Systems Constitutional: no symptoms reported Musculoskeletal: see HPI Skin: see HPI Psychiatric/Neurological: No Symptoms Reported Past Qzadrbk-Hafvfe-Ftxowh Hx Past Med/Social Hx: Reviewed and Corrections made Patient Social History Alcohol Use: Occasionally Uses Alcohol Beverage of Choice: Beer Drug of Choice: [employer] TE[employer] Smoking Status: Former Smoker (1/2 PPD, QUIT "6 MONTHS AGO" PER PT 11/08/20) Type Used: Cigarettes 2nd Hand Smoke Exposure: Yes Recent Hopitalizations: No Immunizations Up To Date Tetanus Booster (TDap): More than 5yrs PED Vaccines UTD: Yes Seasonal Allergies Seasonal Allergies: No Past Medical History Surgeries: Yes (BMT'S; T&A) Adenoidectomy, Ear Surgery, Tonsillectomy Respiratory: No Cardiac: No Neurological: No Genitourinary: Yes UTI-Chronic Gastrointestinal: No Musculoskeletal: No Endocrine: No HEENT: No Cancer: No Psychosocial: Yes Depression Integumentary: No (TATTOOS) Blood Disorders: No Family Medical History No Pertinent Family Hx Physical Exam Vital Signs Vital Signs - First Documented 11/08/20 11/09/20 23:45 00:05 Temp 35.9 Pulse 92 Resp 20 B/P (MAP) 123/89 (100) Pulse Ox 98 O2 Delivery Room Air Capillary Refill : General Appearance: WD/WN, no apparent distress, obese, other (WALKS AND MOVES WITHOUT DIFFICULTY) Extremities: normal capillary refill Neurologic/Psychiatric: no motor/sensory deficits, alert, normal mood/affect, oriented x 3 Skin: normal color, warm/dry, tattoos/piercings (MULTIPLE TATTOOS), other (RIGHT UPPER LATERAL THIGH WITH 1.5 X 4 CM AREA OF MILD ERYTHEMA WITH MILD DUSKY CENTER APPROXIMATELY 1/2 CM DIAMETER. NO WARMTH, NO ERYTHEMA. NO INDURATION, NO FLUCTUANCE. NO DRAINAGE. NO STREAKS. NON-TENDER) Progress/Results/Core Measures Results/Orders My Orders Orders - ASHA SEN DO Prednisone Tablet (Deltasone Tablet) (11/09/20 00:00) Medications Given in ED Current Medications Medications Dose Ordered Sig/Johanna Route Start Time Stop Time Status Last Admin Dose Admin Prednisone 40 mg ONCE ONCE PO 11/09/20 00:00 11/09/20 00:01 DC 11/09/20 00:03 40 MG Vital Signs/I&O 11/08/20 11/09/20 23:45 00:05 Temp 35.9 36.1 Pulse 92 85 Resp 20 18 B/P (MAP) 123/89 (100) 128/76 Pulse Ox 98 O2 Delivery Room Air Progress Progress Note : Progress Note DISCUSSED ANTICIPATED COURSE Departure Impression Primary Impression: Brown recluse spider bite Disposition: HOME, SELF-CARE Condition: Stable Departure-Patient Inst. Decision time for Depature: 23:57 Referrals: [facility] Patient Instructions: Spider Bites Add. Discharge Instructions: COOL COMPRESSES TO AREA AT 20 MINUTE INTERVALS TYLENOL AND MOTRIN NEEDED FOR PAIN BENADRYL NEEDED FOR ITCHING FOLLOW UP WITH [facility] IN 2-3 DAYS FOR FURTHER CARE All discharge instructions reviewed with patient and/or family. Voiced understanding. Scripts Prednisone (Prednisone) 20 Mg Tab 40 MG PO DAILY, #6 TAB 0 Refills Prov: ASHA SEN DO 11/08/20 ASHA SEN DO November 08, 2020 23:57
[2020-11-09] MEDS ORDERED: predniSONE 10 MG TAB PO ONE
[2020-11-09 00:05] VITALS: BP 128/76
== END 2020-11-09 00:20 | disposition home or self-care (01) ==
LOC: EDUNIT# 23:28 → ER 23:31
DX: T63.331A Toxic effect of venom of brown recluse spider, accidental (unintentional), initial encounter (principal); Z87.891 Personal history of nicotine dependence
CPT/HCPCS: 99283